=== PATIENT | male | born 1960 | race Caucasian/White ===

== ENCOUNTER → 2016-08-09 | Outpatient (CLI) | payer OTHER ==
[~2016-08-09] MED LIST: ACET50TAOT PO; BACITAB3 PO; CIPR500T3 PO; CYAN1000VL IM; FERR325T PO; FLAG500T PO; LOSA25TA8 PO; OMEP20CA3 PO; PENT500C PO; PRED20TAB PO; VITA100066 PO; VITMTA PO
[2016-08-09 17:34] LABS: ALBUMIN 3.2 GM/DL (3.2-5.2); ALBUMIN/GLOBULIN RATIO 0.97 (1.00-1.93); ALKALINE PHOSPHATASE 143 U/L (45-117); ALT/SGPT 40 U/L (12-78); ANION GAP 9 MEQ/L (8-16); AST/SGOT 28 U/L (15-37); BILIRUBIN,TOTAL 0.3 MG/DL (0.2-1.0); BLOOD UREA NITROGEN 17 MG/DL (7-18); CALCIUM LEVEL 8.7 MG/DL (8.5-10.1); CARBON DIOXIDE LEVEL 26 MEQ/L (21-32); CHLORIDE LEVEL 107 MEQ/L (98-107); CREATININE FOR GFR 1.09 MG/DL (0.70-1.30); GLOMERULAR FILTRATION RATE > 60.0 (>56); GLUCOSE, FASTING 113 MG/DL (70-105); POTASSIUM SERUM 4.2 MEQ/L (3.5-5.1); SODIUM LEVEL 142 MEQ/L (136-145); TOTAL PROTEIN 6.5 GM/DL (6.4-8.2)
[2016-08-09 18:09] LABS: MEAN CORPUSCULAR HEMOGLOBIN 28.3 pg (27.0-33.0); MEAN CORPUSCULAR HGB CONC 31.9 g/dl (32.0-36.5); MEAN CORPUSCULAR VOLUME 88.5 fl (80.0-96.0); RED CELL DISTRIBUTION WIDTH 13.4 % (11.5-14.5)
== END ==
LOC: M WUC 11:48
PROVIDERS: ATTEND Internal Medicine Gastroenterology
DX: K50.90 Crohn's disease, unspecified, without complications (principal); K52.9 Noninfective gastroenteritis and colitis, unspecified; D64.9 Anemia, unspecified; K21.9 Gastro-esophageal reflux disease without esophagitis; E55.9 Vitamin D deficiency, unspecified

== ENCOUNTER → 2016-09-09 | Outpatient (CLI) | payer OTHER | LOC: M WUC 13:14 | PROVIDERS: ATTEND Internal Medicine Gastroenterology | DX: R94.5 Abnormal results of liver function studies (principal) ==

== ENCOUNTER → 2016-09-13 | Outpatient (CLI) | payer OTHER ==
--- NOTE | 2016-09-13 09:47 | REP ---
RIGHT UPPER QUADRANT ULTRASOUND: Real-time sonographic evaluation of the right upper quadrant performed and compared to a prior study of 02/24/2015. Gallbladder is moderately distended. No stones are seen. Once again there are several tiny polyps along the inner wall of the gallbladder only a couple of millimeters in diameter similar to the prior exam. There is intrahepatic or extrahepatic biliary dilatation, common bile duct measuring 5 mm in diameter. Liver and pancreas are grossly unremarkable with no gross mass. Pancreas is not optimally seen due to overlying bowel gas. Right kidney demonstrates multiple cysts, the largest measuring 1.2 x 0.7 x 0.8 cm and 1.1 x 0.6 x 0.9 cm. These are in the mid to upper aspect of the right kidney. There is no hydronephrosis. Length is 11.1 cm. No free fluid is seen. IMPRESSION: Distended gallbladder with no wall thickening, stones, but again containing what appear to be several tiny polyps along the inner wall similar to prior study of 02/24/2015. No biliary dilatation or free fluid. Right renal cysts. Signed by Eliseo Jara MD 09/13/2016 08:06 P
== END ==
LOC: M RAD 07:47
PROVIDERS: ATTEND Internal Medicine Gastroenterology
DX: K82.8 Other specified diseases of gallbladder (principal); N28.1 Cyst of kidney, acquired

== ENCOUNTER → 2017-03-26 | Outpatient (CLI) | payer OTHER ==
[~2017-03-26] MED LIST changes: +BACITAB PO; -BACITAB3 PO; +FERR1TAB8 PO; -FERR325T PO
[2017-03-26 19:17] LABS: ALBUMIN 3.1 GM/DL (3.2-5.2); ALBUMIN/GLOBULIN RATIO 0.86 (1.00-1.93); ALKALINE PHOSPHATASE 121 U/L (45-117); ALT/SGPT 24 U/L (12-78); ANION GAP 6 MEQ/L (8-16); AST/SGOT 18 U/L (15-37); BILIRUBIN,TOTAL 0.3 MG/DL (0.2-1.0); BLOOD UREA NITROGEN 21 MG/DL (7-18); CALCIUM LEVEL 8.7 MG/DL (8.5-10.1); CARBON DIOXIDE LEVEL 29 MEQ/L (21-32); CHLORIDE LEVEL 107 MEQ/L (98-107); CREATININE FOR GFR 0.94 MG/DL (0.70-1.30); GLOMERULAR FILTRATION RATE > 60.0 (>56); GLUCOSE, FASTING 88 MG/DL (70-105); POTASSIUM SERUM 4.2 MEQ/L (3.5-5.1); SODIUM LEVEL 142 MEQ/L (136-145); TOTAL PROTEIN 6.7 GM/DL (6.4-8.2)
[2017-03-26 20:42] LABS: BASO % 0.2 % (0.0-1.0); EOS # 0.1 K/mm3 (0.0-0.50); EOS % 1.5 % (0.0-3.0); LARGE UNSTAINED CELL # 0.1 K/mm3 (0.0-0.4); LARGE UNSTAINED CELL % 1.4 % (0.0-4.0); LYMPH # 0.5 K/mm3 (1.5-4.5); LYMPH % 7.3 % (24.0-44.0); MEAN CORPUSCULAR HGB CONC 33.7 g/dl (32.0-36.5); MEAN CORPUSCULAR VOLUME 89.1 fl (80.0-96.0); MONO # 0.4 K/mm3 (0.0-0.8); MONO % 5.5 % (0.0-5.0); NEUTROPHILS # 6.2 K/mm3 (1.8-7.7); NEUTROPHILS % 84.2 % (36.0-66.0); PLATELET COUNT, AUTOMATED 309 k/mm3 (150-450); RED CELL DISTRIBUTION WIDTH 13.6 % (11.5-14.5); WHITE BLOOD COUNT 7.4 K/mm3 (4.0-10.0)
[2017-03-27 10:12] LABS: VITAMIN B12 LEVEL 711 PG/ML (247-911)
== END ==
LOC: M WUC 08:43
PROVIDERS: ATTEND Internal Medicine Gastroenterology
DX: R94.5 Abnormal results of liver function studies (principal); K50.90 Crohn's disease, unspecified, without complications; K52.9 Noninfective gastroenteritis and colitis, unspecified; K55.9 Vascular disorder of intestine, unspecified; D64.9 Anemia, unspecified; K21.9 Gastro-esophageal reflux disease without esophagitis

== ENCOUNTER → 2017-03-26 | Outpatient (CLI) | payer OTHER | LOC: M WUC 08:39 | PROVIDERS: ATTEND Physician Assistant | DX: Z13.220 Encounter for screening for lipoid disorders (principal) ==

== ENCOUNTER → 2017-09-22 | Outpatient (CLI) | payer OTHER ==
[2017-09-22 12:43] LABS: ALBUMIN 3.2 GM/DL (3.2-5.2); ALBUMIN/GLOBULIN RATIO 0.86 (1.00-1.93); ALKALINE PHOSPHATASE 126 U/L (45-117); ALT/SGPT 25 U/L (12-78); ANION GAP 7 MEQ/L (8-16); AST/SGOT 16 U/L (7-37); BILIRUBIN,TOTAL 0.4 MG/DL (0.2-1.0); BLOOD UREA NITROGEN 20 MG/DL (7-18); CALCIUM LEVEL 8.9 MG/DL (8.5-10.1); CARBON DIOXIDE LEVEL 28 MEQ/L (21-32); CHLORIDE LEVEL 106 MEQ/L (98-107); CHOLESTEROL LEVEL 169 MG/DL (<200); CREATININE FOR GFR 1.09 MG/DL (0.70-1.30); GLOMERULAR FILTRATION RATE > 60.0 (>56); GLUCOSE, FASTING 84 MG/DL (70-100); HDL CHOLESTEROL 52 MG/DL (>40); NON-HDL-C 117 MG/DL; POTASSIUM SERUM 4.8 MEQ/L (3.5-5.1); SODIUM LEVEL 141 MEQ/L (136-145); TOTAL PROTEIN 6.9 GM/DL (6.4-8.2); TRIGLYCERIDES LEVEL 120 MG/DL (<150)
== END ==
LOC: M WUC 08:37
DX: E78.00 Pure hypercholesterolemia, unspecified (principal)
CPT/HCPCS: 80053

== ENCOUNTER → 2017-09-22 | Outpatient (CLI) | payer OTHER ==
[2017-09-22 12:21] LABS: HEMATOCRIT 41.7 % (42.0-52.0); HEMOGLOBIN 13.4 g/dl (14.0-18.0); MEAN CORPUSCULAR HGB CONC 32.1 g/dl (32.0-36.5); MEAN CORPUSCULAR VOLUME 87.1 fl (80.0-96.0); PLATELET COUNT, AUTOMATED 334 10^3/uL (150-450); RED BLOOD COUNT 4.79 10^6/uL (4.30-6.10); RED CELL DISTRIBUTION WIDTH 13.6 % (11.5-14.5)
[2017-09-22 12:40] LABS: TOTAL 25(OH) VITAMIN D 24.5 NG/ML (30.0-100.0)
[2017-09-22 12:54] LABS: ALBUMIN 3.1 GM/DL (3.2-5.2); ALBUMIN/GLOBULIN RATIO 0.86 (1.00-1.93); ALKALINE PHOSPHATASE 117 U/L (45-117); ALT/SGPT 25 U/L (12-78); ANION GAP 8 MEQ/L (8-16); AST/SGOT 20 U/L (7-37); BILIRUBIN,TOTAL 0.4 MG/DL (0.2-1.0); BLOOD UREA NITROGEN 20 MG/DL (7-18); C REACTIVE PROTEIN QUANTITATIV 0.66 MG/DL (0.00-0.30); CALCIUM LEVEL 8.9 MG/DL (8.5-10.1); CARBON DIOXIDE LEVEL 27 MEQ/L (21-32); CHLORIDE LEVEL 106 MEQ/L (98-107); CREATININE FOR GFR 1.08 MG/DL (0.70-1.30); FERRITIN 67 NG/ML (26-388); GLOMERULAR FILTRATION RATE > 60.0 (>56); GLUCOSE, FASTING 79 MG/DL (70-100); IRON (FE) 60 UG/DL (65-175); PERCENT SATURATION 18.1 % (19.7-50.0); POTASSIUM SERUM 4.9 MEQ/L (3.5-5.1); SODIUM LEVEL 141 MEQ/L (136-145); TOTAL IRON BINDING CAPACITY 331 UG/DL (250-450); TOTAL PROTEIN 6.7 GM/DL (6.4-8.2)
== END ==
LOC: M WUC 08:40
DX: K50.90 Crohn's disease, unspecified, without complications (principal); D64.9 Anemia, unspecified; K52.9 Noninfective gastroenteritis and colitis, unspecified; M81.0 Age-related osteoporosis without current pathological fracture; K21.9 Gastro-esophageal reflux disease without esophagitis; K62.89 Other specified diseases of anus and rectum; E55.9 Vitamin D deficiency, unspecified
CPT/HCPCS: 83550

== ENCOUNTER → 2018-01-30 | Outpatient (CLI) | payer OTHER ==
[2018-01-30 17:05] LABS: ALBUMIN/GLOBULIN RATIO 0.79 (1.00-1.93); ALKALINE PHOSPHATASE 113 U/L (45-117); ALT/SGPT 23 U/L (12-78); AST/SGOT 16 U/L (7-37); BILIRUBIN,DIRECT < 0.1 MG/DL (0.0-0.2); BILIRUBIN,TOTAL 0.3 MG/DL (0.2-1.0); CHOLESTEROL LEVEL 135 MG/DL (<200); CHOLESTEROL RISK RATIO 2.547 (<5); HDL CHOLESTEROL 53 MG/DL (>40); LDL CHOLESTEROL 39.6 MG/DL (<100); NON-HDL-C 82 MG/DL; TOTAL PROTEIN 6.8 GM/DL (6.4-8.2); TRIGLYCERIDES LEVEL 212 MG/DL (<150)
== END ==
LOC: M WUC 11:59
DX: E78.00 Pure hypercholesterolemia, unspecified (principal)
CPT/HCPCS: 80061

== ENCOUNTER → 2018-01-30 | Outpatient (CLI) | payer OTHER ==
[2018-01-30 16:50] LABS: HEMATOCRIT 38.6 % (42.0-52.0); HEMOGLOBIN 12.3 g/dl (13.5-17.5); MEAN CORPUSCULAR HEMOGLOBIN 28.1 pg (27.0-33.0); MEAN CORPUSCULAR HGB CONC 31.9 g/dl (32.0-36.5); MEAN CORPUSCULAR VOLUME 88.3 fl (80.0-96.0); PLATELET COUNT, AUTOMATED 314 10^3/uL (150-450); RED BLOOD COUNT 4.37 10^6/uL (4.30-6.10); RED CELL DISTRIBUTION WIDTH 12.9 % (11.5-14.5); WHITE BLOOD COUNT 8.5 10^3/uL (4.0-10.0)
[2018-01-30 17:03] LABS: ALBUMIN 3.1 GM/DL (3.2-5.2); ALBUMIN/GLOBULIN RATIO 0.89 (1.00-1.93); ALKALINE PHOSPHATASE 107 U/L (45-117); ALT/SGPT 24 U/L (12-78); ANION GAP 6 MEQ/L (8-16); AST/SGOT 18 U/L (7-37); BILIRUBIN,TOTAL 0.3 MG/DL (0.2-1.0); BLOOD UREA NITROGEN 20 MG/DL (7-18); C REACTIVE PROTEIN QUANTITATIV 0.58 MG/DL (0.00-0.30); CALCIUM LEVEL 8.3 MG/DL (8.5-10.1); CARBON DIOXIDE LEVEL 31 MEQ/L (21-32); CHLORIDE LEVEL 105 MEQ/L (98-107); CREATININE FOR GFR 0.97 MG/DL (0.70-1.30); FERRITIN 70 NG/ML (26-388); GLOMERULAR FILTRATION RATE > 60.0 (>56); GLUCOSE, FASTING 96 MG/DL (70-100); IRON (FE) 45 UG/DL (65-175); PERCENT SATURATION 14.1 % (19.7-50.0); POTASSIUM SERUM 4.1 MEQ/L (3.5-5.1); SODIUM LEVEL 142 MEQ/L (136-145); TOTAL IRON BINDING CAPACITY 320 UG/DL (250-450); TOTAL PROTEIN 6.6 GM/DL (6.4-8.2)
[2018-01-30 17:06] LABS: VITAMIN B12 LEVEL 979 PG/ML (247-911)
[2018-01-30 18:10] LABS: TOTAL 25(OH) VITAMIN D 48.7 NG/ML (30.0-100.0)
== END ==
LOC: M WUC 11:55
DX: K50.90 Crohn's disease, unspecified, without complications (principal); K52.9 Noninfective gastroenteritis and colitis, unspecified; K62.89 Other specified diseases of anus and rectum; M81.0 Age-related osteoporosis without current pathological fracture; K21.9 Gastro-esophageal reflux disease without esophagitis
CPT/HCPCS: 83550

== ENCOUNTER → 2018-05-03 | Outpatient (CLI) | payer OTHER ==
[2018-05-03 11:24] LABS: HEMATOCRIT 40.1 % (42.0-52.0); HEMOGLOBIN 12.9 g/dl (13.5-17.5); MEAN CORPUSCULAR HEMOGLOBIN 28.9 pg (27.0-33.0); MEAN CORPUSCULAR HGB CONC 32.2 g/dl (32.0-36.5); MEAN CORPUSCULAR VOLUME 89.7 fl (80.0-96.0); PLATELET COUNT, AUTOMATED 317 10^3/uL (150-450); RED BLOOD COUNT 4.47 10^6/uL (4.30-6.10); RED CELL DISTRIBUTION WIDTH 14.1 % (11.5-14.5); WHITE BLOOD COUNT 7.3 10^3/uL (4.0-10.0)
[2018-05-03 11:28] LABS: APPEARANCE, URINE HAZY (CLEAR); BACTERIA, URINE AUTO NEGATIVE (NEGATIVE); BILIRUBIN, URINE AUTO NEGATIVE (NEGATIVE); BLOOD, URINE BLOOD NEGATIVE (NEGATIVE); COLOR, URINE YELLOW (YELLOW); GLUCOSE, URINE (UA) AUTO NEGATIVE (NEGATIVE); KETONE, URINE AUTO TRACE mg/dL (NEGATIVE); LEUKOCYTE ESTERASE, URINE AUTO NEGATIVE (NEGATIVE); MUCUS, URINE SMALL (NEGATIVE); NITRITE, URINE AUTO NEGATIVE (NEGATIVE); PROTEIN, URINE AUTO NEGATIVE (NEGATIVE); RBC, URINE AUTO 0 /HPF (0-3); SPECIFIC GRAVITY URINE AUTO 1.024 (1.002-1.035); SQUAMOUS EPITHELIAL CELL UR AU 0 /HPF (0-6); UROBILINOGEN, URINE AUTO 0.2 mg/dL (0.0-2.0); WBC, URINE AUTO 1 /HPF (0-3)
[2018-05-03 11:44] LABS: ALBUMIN 3.2 GM/DL (3.2-5.2); ALBUMIN/GLOBULIN RATIO 0.91 (1.00-1.93); ALKALINE PHOSPHATASE 114 U/L (45-117); ALT/SGPT 26 U/L (12-78); ANION GAP 8 MEQ/L (8-16); AST/SGOT 22 U/L (7-37); BILIRUBIN,TOTAL 0.4 MG/DL (0.2-1.0); BLOOD UREA NITROGEN 17 MG/DL (7-18); CALCIUM LEVEL 9.1 MG/DL (8.5-10.1); CARBON DIOXIDE LEVEL 29 MEQ/L (21-32); CHLORIDE LEVEL 108 MEQ/L (98-107); CREATININE FOR GFR 0.92 MG/DL (0.70-1.30); GLOMERULAR FILTRATION RATE > 60.0 (>56); GLUCOSE, FASTING 84 MG/DL (70-100); POTASSIUM SERUM 4.3 MEQ/L (3.5-5.1); SODIUM LEVEL 145 MEQ/L (136-145); THYROID STIMULATING HORMONE 0.789 uIU/ML (0.358-3.740); TOTAL PROTEIN 6.7 GM/DL (6.4-8.2)
[2018-05-03 11:46] LABS: TESTOSTERONE 306 NG/DL (241-827)
[2018-05-03 12:00] LABS: ERYTHROCYTE SEDIMENTATION RATE 58 mm/hr (0-20)
== END ==
LOC: M LAB 09:22
DX: N39.0 Urinary tract infection, site not specified (principal); N40.1 Benign prostatic hyperplasia with lower urinary tract symptoms
CPT/HCPCS: 84403

== ENCOUNTER → 2018-05-21 | Outpatient (CLI) | payer OTHER | LOC: M RAD 13:25 | DX: J34.2 Deviated nasal septum (principal); Q22.1 Congenital pulmonary valve stenosis; J34.89 Other specified disorders of nose and nasal sinuses; J32.0 Chronic maxillary sinusitis | CPT/HCPCS: 70486 ==

== ENCOUNTER 2018-06-11 20:54 | Inpatient (IN) | payer OTHER ==
[2018-06-11 21:28] LABS: BASO # 0.1 10^3/uL (0.0-0.2); BASO % 0.3 % (0.0-1.0); EOS # 0.1 10^3/uL (0.0-0.50); EOS % 0.8 % (0.0-3.0); HEMATOCRIT 42.2 % (42.0-52.0); HEMOGLOBIN 13.7 g/dl (13.5-17.5); IMMATURE GRANULOCYTE % 0.3 % (0-3.0); LYMPH # 0.6 10^3/uL (1.5-4.5); LYMPH % 3.1 % (24.0-44.0); MEAN CORPUSCULAR HEMOGLOBIN 29.1 pg (27.0-33.0); MEAN CORPUSCULAR HGB CONC 32.5 g/dl (32.0-36.5); MEAN CORPUSCULAR VOLUME 89.6 fl (80.0-96.0); MONO # 1.5 10^3/uL (0.0-0.8); MONO % 8.4 % (0.0-5.0); NEUTROPHILS # 15.6 10^3/uL (1.8-7.7); NEUTROPHILS % 87.1 % (36.0-66.0); PLATELET COUNT, AUTOMATED 321 10^3/uL (150-450); RED BLOOD COUNT 4.71 10^6/uL (4.30-6.10); RED CELL DISTRIBUTION WIDTH 13.6 % (11.5-14.5); WHITE BLOOD COUNT 17.9 10^3/uL (4.0-10.0)
[2018-06-11 21:44] LABS: PARTIAL THROMBOPLASTIN TIME 28.1 SECONDS (25.4-37.6)
[2018-06-11 21:45] LABS: ALBUMIN 3.4 GM/DL (3.2-5.2); ALBUMIN/GLOBULIN RATIO 0.89 (1.00-1.93); ALKALINE PHOSPHATASE 132 U/L (45-117); ALT/SGPT 25 U/L (12-78); ANION GAP 9 MEQ/L (8-16); AST/SGOT 20 U/L (7-37); BILIRUBIN,DIRECT 0.2 MG/DL (0.0-0.2); BILIRUBIN,TOTAL 0.6 MG/DL (0.2-1.0); BLOOD UREA NITROGEN 21 MG/DL (7-18); CALCIUM LEVEL 9.1 MG/DL (8.5-10.1); CARBON DIOXIDE LEVEL 28 MEQ/L (21-32); CHLORIDE LEVEL 104 MEQ/L (98-107); CK-MB VALUE MASS < 1.0 NG/ML (<3.6); CPK CREATINE PHOSPHOKINASE 69 U/L (39-308); CREATININE FOR GFR 0.99 MG/DL (0.70-1.30); GLOMERULAR FILTRATION RATE > 60.0 (>56); GLUCOSE, FASTING 119 MG/DL (70-100); LIPASE 160 U/L (73-393); MB/CK RELATIVE INDEX 1.45 (< OR =4); POTASSIUM SERUM 3.7 MEQ/L (3.5-5.1); SODIUM LEVEL 141 MEQ/L (136-145); TOTAL PROTEIN 7.2 GM/DL (6.4-8.2); TROPONIN I < 0.02 NG/ML (< 0.10)
[2018-06-11 21:54] LABS: INR 0.93; PROTHROMBIN TIME 12.6 SECONDS (12.1-14.4)
[2018-06-11] MEDS: NS 1,000 ML IV (21:57)
[2018-06-11] MEDS: ONDANSETRON 4MG/2ML VIAL (J2405) IV (21:57)
[2018-06-11] MEDS: MORPHINE 2 MG/ML 1ML SYRINGE (J2270) IV (21:57)
[2018-06-11] MEDS: GASTROGRAFIN SOLUTION 30ML PO ×2 (22:15→22:21)
[2018-06-11] MEDS ORDERED: ISOVUE-370 76% 100ML VIAL (Q9967) As Ordered (23:16)
[2018-06-12] MEDS: PROMETHAZINE INJ 25 MG/ML VIAL (J2550) IV ×2 (00:11→04:00)
[2018-06-12] MEDS: NS 1,000 ML IV (01:16)
[2018-06-12] MEDS ORDERED: ONDANSETRON 4MG/2ML VIAL (J2405) IV (02:00)
[2018-06-12] MEDS ORDERED: ACETAMINOPHEN TAB 650MG DOSE (2X325MG) PO (02:00)
[2018-06-12] MEDS ORDERED: PERCOCET 5MG/325MG TAB PO ×2 (02:00)
[2018-06-12] MEDS ORDERED: LIDOCAINE 2% JELLY 30 ML As Ordered (02:08)
[2018-06-12] MEDS: LR 1,000 ML IV ×3 (03:35→17:01)
[2018-06-12] MEDS: KETOROLAC 30 MG/ML VIAL (J1885) IV (03:59)
[2018-06-12] MEDS: ENOXAPARIN 40 MG/0.4 ML SYRINGE (J1650) SC (08:33)
[2018-06-12] MEDS: PANTOPRAZOLE 40MG INJ (PROTONIX) (C9113) IV (08:33)
[2018-06-12] MEDS: MORPHINE 4 MG/ML 1ML VIAL/SYRINGE (J2270) IV (09:15)
[2018-06-12] MEDS: CEPACOL LOZENGE PO ×2 (12:03→17:00)
[2018-06-12] MEDS: CHLORASEPTIC SPRAY MT (20:07)
[2018-06-13] MEDS: LR 1,000 ML IV ×2 (01:53→10:18)
[2018-06-13 06:41] LABS: BASO % 0.5 % (0.0-1.0); EOS # 0.1 10^3/uL (0.0-0.50); EOS % 1.5 % (0.0-3.0); HEMATOCRIT 35.1 % (42.0-52.0); IMMATURE GRANULOCYTE % 0.3 % (0-3.0); LYMPH # 0.5 10^3/uL (1.5-4.5); MEAN CORPUSCULAR HEMOGLOBIN 28.9 pg (27.0-33.0); MEAN CORPUSCULAR HGB CONC 31.6 g/dl (32.0-36.5); MEAN CORPUSCULAR VOLUME 91.4 fl (80.0-96.0); MONO # 0.8 10^3/uL (0.0-0.8); MONO % 12.7 % (0.0-5.0); NEUTROPHILS # 4.5 10^3/uL (1.8-7.7); PLATELET COUNT, AUTOMATED 236 10^3/uL (150-450); RED BLOOD COUNT 3.84 10^6/uL (4.30-6.10); RED CELL DISTRIBUTION WIDTH 13.7 % (11.5-14.5); WHITE BLOOD COUNT 5.9 10^3/uL (4.0-10.0)
[2018-06-13 06:53] LABS: HEMOGLOBIN 11.1 g/dl (13.5-17.5)
[2018-06-13 06:58] LABS: ANION GAP 10 MEQ/L (8-16); BLOOD UREA NITROGEN 18 MG/DL (7-18); C REACTIVE PROTEIN QUANTITATIV 6.55 MG/DL (0.00-0.30); CALCIUM LEVEL 7.7 MG/DL (8.5-10.1); CARBON DIOXIDE LEVEL 24 MEQ/L (21-32); CHLORIDE LEVEL 108 MEQ/L (98-107); CREATININE FOR GFR 0.86 MG/DL (0.70-1.30); GLOMERULAR FILTRATION RATE > 60.0 (>56); GLUCOSE, FASTING 67 MG/DL (70-100); POTASSIUM SERUM 3.5 MEQ/L (3.5-5.1); SODIUM LEVEL 142 MEQ/L (136-145)
[2018-06-13] MEDS: PANTOPRAZOLE 40MG INJ (PROTONIX) (C9113) IV (08:34)
[2018-06-13] MEDS: ENOXAPARIN 40 MG/0.4 ML SYRINGE (J1650) SC (09:36)
[2018-06-13] MEDS: CEPACOL LOZENGE PO (10:18)
[2018-06-13] MEDS: BUDESONIDE EC 3 MG CAP (ENTOCORT EC) PO (15:46)
[2018-06-14 06:19] LABS: BASO % 0.4 % (0.0-1.0); EOS % 0.9 % (0.0-3.0); HEMATOCRIT 32.9 % (42.0-52.0); HEMOGLOBIN 10.9 g/dl (13.5-17.5); IMMATURE GRANULOCYTE % 0.4 % (0-3.0); LYMPH # 0.3 10^3/uL (1.5-4.5); LYMPH % 7.5 % (24.0-44.0); MEAN CORPUSCULAR HEMOGLOBIN 28.8 pg (27.0-33.0); MEAN CORPUSCULAR HGB CONC 33.1 g/dl (32.0-36.5); MONO # 0.6 10^3/uL (0.0-0.8); MONO % 12.1 % (0.0-5.0); NEUTROPHILS # 3.6 10^3/uL (1.8-7.7); NEUTROPHILS % 78.7 % (36.0-66.0); PLATELET COUNT, AUTOMATED 248 10^3/uL (150-450); RED BLOOD COUNT 3.78 10^6/uL (4.30-6.10); RED CELL DISTRIBUTION WIDTH 13.3 % (11.5-14.5); WHITE BLOOD COUNT 4.5 10^3/uL (4.0-10.0)
[2018-06-14 06:41] LABS: ANION GAP 6 MEQ/L (8-16); BLOOD UREA NITROGEN 10 MG/DL (7-18); CALCIUM LEVEL 7.9 MG/DL (8.5-10.1); CARBON DIOXIDE LEVEL 30 MEQ/L (21-32); CHLORIDE LEVEL 107 MEQ/L (98-107); CREATININE FOR GFR 0.76 MG/DL (0.70-1.30); GLOMERULAR FILTRATION RATE > 60.0 (>56); GLUCOSE, FASTING 88 MG/DL (70-100); POTASSIUM SERUM 3.7 MEQ/L (3.5-5.1); SODIUM LEVEL 143 MEQ/L (136-145)
[2018-06-14] MEDS: MOM 30ML SUSPENSION UDC PO (09:58)
[2018-06-14] MEDS: PANTOPRAZOLE 40MG INJ (PROTONIX) (C9113) IV (09:58)
[2018-06-14] MEDS: BUDESONIDE EC 3 MG CAP (ENTOCORT EC) PO ×2 (09:58→19:51)
[2018-06-14] MEDS: ENOXAPARIN 40 MG/0.4 ML SYRINGE (J1650) SC (09:59)
[2018-06-15 06:34] LABS: BASO % 0.3 % (0.0-1.0); EOS % 0.3 % (0.0-3.0); HEMATOCRIT 33.6 % (42.0-52.0); HEMOGLOBIN 11.1 g/dl (13.5-17.5); IMMATURE GRANULOCYTE % 0.5 % (0-3.0); LYMPH # 0.3 10^3/uL (1.5-4.5); LYMPH % 7.8 % (24.0-44.0); MEAN CORPUSCULAR HEMOGLOBIN 29.4 pg (27.0-33.0); MEAN CORPUSCULAR VOLUME 89.1 fl (80.0-96.0); MONO # 0.5 10^3/uL (0.0-0.8); MONO % 13.9 % (0.0-5.0); NEUTROPHILS # 2.9 10^3/uL (1.8-7.7); NEUTROPHILS % 77.2 % (36.0-66.0); PLATELET COUNT, AUTOMATED 217 10^3/uL (150-450); RED BLOOD COUNT 3.77 10^6/uL (4.30-6.10); RED CELL DISTRIBUTION WIDTH 13.2 % (11.5-14.5); WHITE BLOOD COUNT 3.7 10^3/uL (4.0-10.0)
[2018-06-15 06:53] LABS: POSITIVE DIFF POS FLAG
[2018-06-15 07:02] LABS: ANION GAP 5 MEQ/L (8-16); BLOOD UREA NITROGEN 10 MG/DL (7-18); CALCIUM LEVEL 8.2 MG/DL (8.5-10.1); CARBON DIOXIDE LEVEL 31 MEQ/L (21-32); CHLORIDE LEVEL 105 MEQ/L (98-107); CREATININE FOR GFR 0.86 MG/DL (0.70-1.30); GLOMERULAR FILTRATION RATE > 60.0 (>56); GLUCOSE, FASTING 101 MG/DL (70-100); POTASSIUM SERUM 3.7 MEQ/L (3.5-5.1); SODIUM LEVEL 141 MEQ/L (136-145)
[2018-06-15] MEDS: PANTOPRAZOLE 40MG INJ (PROTONIX) (C9113) IV (10:02)
[2018-06-15] MEDS: BUDESONIDE EC 3 MG CAP (ENTOCORT EC) PO (10:03)
[2018-06-15] MEDS: ENOXAPARIN 40 MG/0.4 ML SYRINGE (J1650) SC (10:03)
== END 2018-06-15 12:05 | disposition home or self-care (01) | DRG 245 ==
LOC: M ED INP 06-12 01:53 → M ED 20:54 → M MS5PR 06-12 02:44
DX: K50.912 Crohn's disease, unspecified, with intestinal obstruction (principal); K56.609 Unspecified intestinal obstruction, unspecified as to partial versus complete obstruction; Z79.899 Other long term (current) drug therapy; Z88.2 Allergy status to sulfonamides

== ENCOUNTER → 2018-06-15 | Outpatient (CLI) | payer OTHER | LOC: M PLARAD 14:52 | DX: R51 Headache (principal) | CPT/HCPCS: 70551 ==

== ENCOUNTER → 2018-08-03 | Outpatient (REF) | payer OTHER ==
[~2018-08-03] MED LIST changes: +ACET500T15 PO; -ACET50TAOT PO; +ATOR1TAB19 PO; +BUDE3CAP PO; +LOSA25TA14 PO; -LOSA25TA8 PO
== END ==
LOC: M LAB REF 13:56
PROVIDERS: ATTEND Internal Medicine Gastroenterology
DX: R19.7 Diarrhea, unspecified (principal)

== ENCOUNTER → 2018-09-02 | Outpatient (CLI) | payer OTHER ==
--- NOTE | 2018-09-02 10:57 | REP ---
PA and lateral chest: Comparison is 10/16/2015. On the lateral view there is a lower lobe infiltrate, not visible on the PA view. Lung blood otherwise clear. Cardiac size is normal. The ramona, mediastinum, skeletal structures are unremarkable. Impression: Lower lobe infiltrate on the lateral view, not visible on the PA view. Electronically Signed by Eliseo Edwards MD 09/02/2018 10:44 A
== END ==
LOC: M LRY 10:07
PROVIDERS: ATTEND Nurse Practitioner Family
DX: R06.02 Shortness of breath (principal)

== ENCOUNTER → 2018-09-25 | Outpatient (CLI) | payer OTHER ==
[2018-09-25 19:15] LABS: HEMATOCRIT 39.6 % (42.0-52.0); HEMOGLOBIN 12.6 g/dl (13.5-17.5); MEAN CORPUSCULAR HEMOGLOBIN 27.9 pg (27.0-33.0); MEAN CORPUSCULAR HGB CONC 31.8 g/dl (32.0-36.5); MEAN CORPUSCULAR VOLUME 87.6 fl (80.0-96.0); PLATELET COUNT, AUTOMATED 327 10^3/uL (150-450); RED BLOOD COUNT 4.52 10^6/uL (4.30-6.10); WHITE BLOOD COUNT 12.7 10^3/uL (4.0-10.0)
[2018-09-25 19:39] LABS: ALBUMIN 3.1 GM/DL (3.2-5.2); ALT/SGPT 24 U/L (12-78); BILIRUBIN,TOTAL 0.3 MG/DL (0.2-1.0); BLOOD UREA NITROGEN 26 MG/DL (7-18); CALCIUM LEVEL 8.5 MG/DL (8.5-10.1); CARBON DIOXIDE LEVEL 27 MEQ/L (21-32); CHLORIDE LEVEL 105 MEQ/L (98-107); GLOMERULAR FILTRATION RATE > 60.0 (>56); GLUCOSE, FASTING 109 MG/DL (70-100); POTASSIUM SERUM 4.7 MEQ/L (3.5-5.1); SODIUM LEVEL 138 MEQ/L (136-145); TOTAL PROTEIN 6.3 GM/DL (6.4-8.2)
== END ==
LOC: M LAB 17:37
PROVIDERS: ATTEND Internal Medicine Gastroenterology
DX: K50.90 Crohn's disease, unspecified, without complications (principal); R10.31 Right lower quadrant pain; M81.0 Age-related osteoporosis without current pathological fracture; K21.9 Gastro-esophageal reflux disease without esophagitis

== ENCOUNTER → 2018-11-13 | Outpatient (CLI) | payer OTHER ==
[2018-11-13 08:45] LABS: ALBUMIN 3.3 GM/DL (3.2-5.2); ALT/SGPT 44 U/L (12-78); BILIRUBIN,TOTAL 0.6 MG/DL (0.2-1.0); BLOOD UREA NITROGEN 15 MG/DL (7-18); CALCIUM LEVEL 8.7 MG/DL (8.5-10.1); CARBON DIOXIDE LEVEL 29 MEQ/L (21-32); CHLORIDE LEVEL 108 MEQ/L (98-107); CHOLESTEROL LEVEL 196 MG/DL (<200); CHOLESTEROL RISK RATIO 3.698 (<5); CREATININE FOR GFR 0.98 MG/DL (0.70-1.30); GLOMERULAR FILTRATION RATE > 60.0 (>56); GLUCOSE, FASTING 83 MG/DL (70-100); HDL CHOLESTEROL 53 MG/DL (>40); LDL CHOLESTEROL 117 MG/DL (<100); NON-HDL-C 143 MG/DL; POTASSIUM SERUM 3.8 MEQ/L (3.5-5.1); SODIUM LEVEL 140 MEQ/L (136-145); TOTAL PROTEIN 6.7 GM/DL (6.4-8.2); TRIGLYCERIDES LEVEL 131 MG/DL (<150)
== END ==
LOC: M LAB 07:45
PROVIDERS: ATTEND Physician Assistant
DX: I42.8 Other cardiomyopathies (principal); E78.00 Pure hypercholesterolemia, unspecified

== ENCOUNTER 2019-01-06 22:54 | Inpatient (IN) | payer OTHER ==
[~2019-01-06] VITALS: Ht 177.8 cm; Wt 73.9 kg
[2019-01-07] MEDS ORDERED: NS 1,000 ML IV ONE
[2019-01-07 00:22] LABS: BASO % 0.1 % (0.0-1.0); EOS % 0.1 % (0.0-3.0); HEMATOCRIT 37.6 % (42.0-52.0); HEMOGLOBIN 12.7 g/dl (13.5-17.5); LYMPH # 0.4 10^3/uL (1.5-4.5); LYMPH % 3.3 % (24.0-44.0); MEAN CORPUSCULAR HEMOGLOBIN 30.5 pg (27.0-33.0); MEAN CORPUSCULAR HGB CONC 33.8 g/dl (32.0-36.5); MEAN CORPUSCULAR VOLUME 90.2 fl (80.0-96.0); MONO # 0.2 10^3/uL (0.0-0.8); MONO % 1.5 % (0.0-5.0); NEUTROPHILS # 12.3 10^3/uL (1.8-7.7); NEUTROPHILS % 94.6 % (36.0-66.0); PLATELET COUNT, AUTOMATED 223 10^3/uL (150-450); RED BLOOD COUNT 4.17 10^6/uL (4.30-6.10)
[2019-01-07] MEDS: GASTROGRAFIN SOLUTION 30ML PO SCH ×2 (00:35→01:25)
[2019-01-07 01:03] LABS: ALBUMIN 3.6 GM/DL (3.2-5.2); ALT/SGPT 27 U/L (12-78); BILIRUBIN,DIRECT 0.2 MG/DL (0.0-0.2); BILIRUBIN,TOTAL 0.6 MG/DL (0.2-1.0); BLOOD UREA NITROGEN 22 MG/DL (7-18); CALCIUM LEVEL 8.5 MG/DL (8.5-10.1); CARBON DIOXIDE LEVEL 27 MEQ/L (21-32); CHLORIDE LEVEL 108 MEQ/L (98-107); CREATININE FOR GFR 1.04 MG/DL (0.70-1.30); GLOMERULAR FILTRATION RATE > 60.0 (>56); GLUCOSE, FASTING 114 MG/DL (70-100); LIPASE 110 U/L (73-393); SODIUM LEVEL 142 MEQ/L (136-145); TOTAL PROTEIN 6.8 GM/DL (6.4-8.2)
[2019-01-07] MEDS ORDERED: ISOVUE-370 76% 100ML VIAL (Q9967) As Ordered ONE (01:07)
--- NOTE | 2019-01-07 02:49 | REPVR ---
EXAM: CT Abdomen and Pelvis With Contrast EXAM DATE/TIME: 01/07/2019 1:44 AM CLINICAL HISTORY: 58 years old, male; Condition or disease; Hernia and intestinal condition; Complications not specified; Hernia not specified; Crohn's disease; Additional info: Chrohn's/hernia tender TECHNIQUE: Imaging protocol: Axial computed tomography images of the abdomen and pelvis with intravenous contrast. Coronal and sagittal reformatted images were created and reviewed. Radiation optimization: All CT scans at this facility use at least one of these dose optimization techniques: automated exposure control; mA and/or kV adjustment per patient size (includes targeted exams where dose is matched to clinical indication); or iterative reconstruction. Contrast material: ISOVUE 370; Contrast volume: 100 ml; Contrast route: IV; COMPARISON: CT ABD/PEL W/IV ORAL CONTRAS 06/11/2018 11:18 PM FINDINGS: Lungs: Bibasilar atelectasis. Mediastinum: Contrast in the esophagus likely representing reflux. Liver: Diffuse fatty infiltration of liver. Gallbladder and bile ducts: Normal. No calcified stones. No ductal dilation. Pancreas: Small cystic structure in the tail of the pancreas measuring 7.6 mm likely cysts. Spleen: Normal. No splenomegaly. Adrenals: Normal. No mass. Kidneys and ureters: Multiple bilateral small renal cysts measuring up to 12 mm. Cortical scarring in the right kidney. Stomach and bowel: Postsurgical rectosigmoid postsurgical changes. Postsurgical changes at the junction of the terminal ileum with the cecum. Severe narrowing, enhancement, and surrounding inflammatory changes of the terminal ileum. Dilated fluid filled multiple small bowel loops likely secondary to obstruction at the thickened terminal ileum. Appendix: No evidence of appendicitis. Intraperitoneal space: Normal. No free air. No significant fluid collection. Vasculature: Atherosclerosis. Lymph nodes: Normal. No enlarged lymph nodes. Bladder: Unremarkable as visualized. Reproductive: Unremarkable as visualized. Bones/joints: Demineralization bilateral mild sacroiliitis. the bones with degenerative changes. Soft tissues: Small fat containing anterior abdominal wall hernia. IMPRESSION: High-grade small bowel obstruction occurring at the distal ileum secondary to thickened inflamed terminal ileum consistent with patient's history of Crohn's disease. Electronically signed by: Yumiko Ponce On 01/07/2019 02:48:36 AM
[2019-01-07] MEDS ORDERED: HUMI20KI SC (03:51)
--- NOTE | 2019-01-07 03:57 | HPEPDOC ---
[facility] Medical History & Physical Date of Admission Jan 07, 2019 Date of Service: Jan 07, 2019 History and Physical CHIEF COMPLAINT: Stomachache HISTORY OF PRESENT ILLNESS: Patient is a 58-year-old man with well-documented history of Crohn's disease with numerous complications. He is had numerous resections interventions for strictures fistulas. He's previously had ileostomy with reversal. He was in his usual state of health and doing quite well until yesterday while at a cookout he had some crispy chicken he stated it was tasting so good any new he shouldn't is been eating it it was dry and hard but it tasted so that he couldn't stop. Patient states that the next day he began having difficulties with pain in the stomach he has not passed gas from below today he tells me that he has had some belching associated with mild nausea but no actual vomiting. The patient did call Afia Funk his autocad designer office in [place] and they've suggested he take prednisone 60 mg to see if this would be enough to celeste his symptoms however symptoms do continue to worsen prompting him to present to the emergency room at this time. Subjectively he tells me that his symptoms actually improved at this time and is doing better. He describes his pain in the colon acute nature. Otherwise patient denies weight loss, hair loss, headache, visual changes, chest pain, shortness of breath, cough, muscle aches, worsening arthritis, change in mood. The patient provides a very good history and is very much into him with his body and his disease PAST MEDICAL HISTORY: 1. Crohn's disease. 2. Dyslipidemia. 3. Hypertension 4. Gastroesophageal reflux disease 5. Vitamin D deficiency 6. Vitamin B12 deficiency. HOME MEDICATIONS: Please see below. ALLERGIES: Please see below PAST SURGICAL HISTORY: 1. Ileostomy with reversal. 2. Cardiac catheterization. 3. Umbilical hernia repair 4. Numerous procedures related to strictures and fistulas related to Crohn's. 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 ETOH: Denies, Illicit drug use: Denies, Tattoos done unprofessionally: Denies, CODE STATUS: Full code FAMILY HISTORY:Reviewed and noncontributory REVIEW OF SYSTEMS: 10 systems reviewed and negative other than HPI PHYSICAL EXAMINATION: VITAL SIGNS: Temperature 98.4, pulse 74, respiratory rate 18, blood pressure 127 or 84, pulse oximetry 98 % on room air. GENERAL: Pleasant man laying in a stretcher accompanied by his sitting up in bed awake alert oriented speaking in complete sentences no acute distress appears quite comfortable HEENT: Moist mucous membranes no elevation and CVP CARDIOVASCULAR: S1 S2 regular no additional heart sounds appreciated. RESPIRATORY: Clear to auscultation bilaterally. ABDOMINAL: Bowel sounds diminished, abdomen soft and tender to deep palpation over his old surgical scars in his right lower quadrant and infraumbilical region EXTREMITIES: No clubbing cyanosis or edema NEUROLOGICAL: Spontaneously moves all 4 extremities cranial 2 through 12 grossly intact no gross focal deficits appreciated PSYCHOLOGICAL: Appropriate LABORATORY DATA: See below. MICROBIOLOGY: Please see below. IMAGING: CT scan abdomen and pelvis:High-grade small bowel obstruction occurring at the distal ileum secondary to thickened inflamed terminal ileum consistent with patient's history of Crohn's disease. ASSESSMENT & PLAN: This is a 58-year-old man with high-grade small bowel obstruction. PROBLEMS: 1. High-grade small bowel obstruction: Given the onset of his symptoms related to eating some dry hard food M optimistically hoping this is transient obstruction in the region of the area of stenosis related to a previous anastomotic site. For the time being I will treat him with IV Solu-Medrol and hopes that with some decrease of inflammation he can tolerate a clear liquid diet in the morning and to be advanced as tolerated. He is currently not vomiting hemodynamically stable and comfortable. I did discuss placement of an NG tube with him he previously had a bad experience with scratch to his throat and causes significant pain, at this time I will forego placement of an NG tube and monitor closely. Should he fail to improve with these measures are not tolerated diet advancement of his diet could consider NG tube placement and then. Should he fail beyond the NG tube could consider upper endoscopy ev aluation for potential stricture plus or minus intervention with dilation, this is one possible gradual escalation of interventions for this particular patient. I did discuss this plan with general surgery on-call who will see the patient in consultation. Patient started last 6 weeks ago and has been taking Pentasa quite regularly of late. I will hold his Lasix for the time being 2.Dyslipidemia: I will hold atorvastatin and allow for some bowel rest at this time consider resuming when he is able to tolerate diet better 3.Vitamin B12 deficiency: Injections every 2 weeks 4. Vitamin D deficiency: Hold for the short-term as outlined above 5. Hypertension: Hold losartan for now and monitor resume as able 6. Gastroesophageal reflux disease: We'll provide IV PPI DVT PROPHYLAXIS: Lovenox DISPOSITION: admitted to [facility] inpatient status Vital Signs Vital Signs Date Time Temp Pulse Resp B/P (MAP) Pulse Ox O2 Delivery O2 Flow Rate FiO2 01/07/19 02:43 69 16 110/62 (78) 98 01/06/19 23:47 98.4 Room Air Laboratory Data Labs 24H Laboratory Tests 2 01/07/19 00:14: Immature Granulocyte % (Auto) 0.4, White Blood Count 13.0H, Red Blood Count 4.17L, Hemoglobin 12.7L, Hematocrit 37.6L, Mean Corpuscular Volume 90.2, Mean Corpuscular Hemoglobin 30.5, Mean Corpuscular Hemoglobin Concent 33.8, Red Cell Distribution Width 12.7, Platelet Count 223, Neutrophils (%) (Auto) 94.6H, Lymphocytes (%) (Auto) 3.3L, Monocytes (%) (Auto) 1.5, Eosinophils (%) (Auto) 0.1, Basophils (%) (Auto) 0.1, Neutrophils # (Auto) 12.3H, Lymphocytes # (Auto) 0.4L, Monocytes # (Auto) 0.2, Eosinophils # (Auto) 0.0, Basophils # (Auto) 0.0, Nucleated Red Blood Cells % (auto) 0.0, Anion Gap 7L, Glomerular Filtration Rate > 60.0, Lactic Acid Level 0.7, Calcium Level 8.5, Aspartate Amino Transf (AST/SGOT) 26, Alanine Aminotransferase (ALT/SGPT) 27, Alkaline Phosphatase 101, Total Bilirubin 0.6, Direct Bilirubin 0.2, Total Protein 6.8, Albumin 3.6, Albumin/Globulin Ratio 1.13, Lipase 110 CBC/BMP Laboratory Tests 01/07/19 00:14 Red Blood Count 4.17 L, Mean Corpuscular Volume 90.2, Mean Corpuscular Hemoglobin 30.5, Mean Corpuscular Hemoglobin Concent 33.8, Red Cell Distribution Width 12.7, Neutrophils (%) (Auto) 94.6 H, Lymphocytes (%) (Auto) 3.3 L, Monocytes (%) (Auto) 1.5, Eosinophils (%) (Auto) 0.1, Basophils (%) (Auto) 0.1, Neutrophils # (Auto) 12.3 H, Lymphocytes # (Auto) 0.4 L, Monocytes # (Auto) 0.2, Eosinophils # (Auto) 0.0, Basophils # (Auto) 0.0 Home Medications Scheduled Atorvastatin Calcium (Atorvastatin Calcium) 10 Mg Tab, 10 MG PO QHS Budesonide (Budesonide EC) 3 Mg Cap, 6 MG PO BID Cholecalciferol (Vitamin D3) (Vitamin D3) 1,000 Unit Tab, 2,000 UNIT PO DAILY Cyanocobalamin (Cyanocobalamin Injection) 1,000 Mcg/1 Ml Inj, 1,000 MCG IM Q2WK EVERY OTHER MONDAY L.acidoph/L.bulg/B.bif/S.therm (Bacid Caplet) 1 Tab Tab, 1 TAB PO DAILY Losartan Potassium (Losartan Potassium) 25 Mg Tab, 25 MG PO QHS Mesalamine (Pentasa) 500 Mg Cap, 1,000 MG PO QID Multivitamins (Thera M Plus Tablet) 1 Tab Tab, 1 TAB PO DAILY Omeprazole (Omeprazole) 20 Mg Cap, 20 MG PO Q3RD Scheduled PRN Acetaminophen (Acetaminophen) 500 Mg Tab, 1,000 MG PO Q6H PRN for PAIN Allergies Coded Allergies: Sulfa (Sulfonamide Antibiotics) (Verified Allergy, Intermediate, 01/06/19) cramping A-FIB/CHADSVASC A-FIB History Current/History of A-Fib/PAF?: No SABRINA MONROE MD Jan 07, 2019 03:57
[2019-01-07 05:30] VITALS: BP 109/65
[2019-01-07] MEDS: methylPREDNISolone INJ 125 MG/2 ML VIAL (J2930) IV SCH ×4 (06:17→22:37)
[2019-01-07] MEDS: PANTOPRAZOLE 40MG INJ (PROTONIX) (C9113) IV SCH (06:18)
[2019-01-07] MEDS: NS 1,000 ML IV SCH ×2 (08:52→20:32)
[2019-01-07] MEDS: ENOXAPARIN 40 MG/0.4 ML SYRINGE (J1650) SC SCH (08:52)
[2019-01-07] MEDS: MESALAMINE 250 MG CR CAP PO SCH ×4 (08:52→20:32)
--- NOTE | 2019-01-07 10:00 | CR.PDOC ---
General Surgery Consultation Date of Consultation 01/07/19 History and Physical CONSULT REPORT FOR: Samantha Chopra MD (hospitalist service) REASON FOR CONSULTATION: Abdominal pain, distention, vomiting HISTORY OF PRESENT ILLNESS: 58-year-old male with known history of Crohn's disease, had a previous ileostomy and subsequent reversal Patient's known to me from his previous admission back in June 2018 for possible bowel obstruction. This is managed nonoperatively with improvement of his symptoms he does have a long history of Crohn's disease at his prior multiple surgeries. Last one was in 2006. Details of his history of already been previously documented on H&P stone by Dr. Chavez as well as mine on prior admissions for bowel obstruction. In between the time that I saw him in June, he is followed up with Dr. Pat Funk who is her director internal control. In June he was not yet on Humira. He tells me he has been placed on Humira for about 6 weeks now to try to limit the times that he has been placed on prednisone. He'll has some active disease as he is complaining of intermittent bouts of diarrhea, abdominal crampy pain, gas pain prior to passing flatus or bowel movements. He denies fevers or chills or any significant weight loss in between this time. He also has been sent for consultation with the surgery group in [place] to consider possible surgery for his strictures from his Crohn's disease which she saw them roughly 3 weeks ago. This episode started Monday into Monday. He will the UT just ate too much into fast of the growth chicken Monday evening which promoted the abdominal pain and discomfort on Monday. At the time that he was in the emergency room he started feeling better though he still has waves of cramps area in his nausea has improved. He did not vomit through his stay in the emergency room and overnight. At the time that I saw him he feels comfortable and is no longer having any crampy abdominal pain and discomfort and definitely no nausea. He does report that he has not noted if he has passed any flatus or not since being in the hospital. No bowel movements reported. I'm being asked to assist with his management with regards to his presentation of possible bowel obstruction secondary to his Crohn's disease. PAST MEDICAL HISTORY: 1. Crohn's disease. PAST SURGICAL HISTORY: INCLUDES: 1. Bowel resection for Crohn's disease fistula and stricture in 2006 and subsequent reexploration 3 days after for bowel obstruction with formation of ileostomy. Ileostomy was reversed 3 months after 2. Right inguinal hernia repair 2 3. Umbilical hernia repair 4. Cardiac catheterization. ALLERGIES: Please see below. HOME MEDICATIONS: Please see below. REVIEW OF SYSTEMS: GENERAL: Denies chills, reports weight gain, fever. He was in his usual state of health prior to start of symptoms Monday morning. HEENT: Denies blurred vision and double vision. Denies ear symptoms. Denies hoarseness. NECK: Denies any neck pain CARDIOVASCULAR: Denies chest pain and palpitations. MUSCULOSKELETAL: Denies arthralgias, back pain and thrombophlebitis. SKIN: Denies rash. NEUROLOGIC: Denies headache, stroke and transient ischemic attack. ENDOCRINE: Denies thyroid disease. HEMATOLOGY/ONCOLOGY: Denies bleeding or clotting disorder. PULMONARY: Denies chronic cough, dyspnea and wheezing. GASTROINTESTINAL: See HPI. GENITOURINARY: Denies dysuria, frequency, hematuria and nocturia. ENDOCRINE: Denies polydipsia, polyphagia, polyuria, heat or cold intolerance. INFECTIOUS: Denies any recent upper respiratory tract infection, UTI, need for use of antibiotics. NUTRITION: Reports good appetite. PHYSICAL EXAMINATION: VITALS SIGNS: Please see below. GENERAL APPEARANCE:. The time that I saw the patient, he looks very comfortable. SKIN: Warm and moist. HEENT: Normocephalic, atraumatic. [place] palpebral conjunctiva, anicteric sclerae. Lips and mucosa appear moist. NECK: Supple, no thyromegaly. No obvious jugular venous distention. LUNGS: Clear to auscultation bilaterally. No wheezing appreciated. HEART: No chest wall abnormalities. Regular rate and rhythm with no murmurs appreciated. ABDOMEN: Abdomen is relatively flat, soft, minimally distended. Nontender on palpation. EXTREMITIES: Extremities have no deformities. No edema identified ANCILLARIES: . LABORATORY DATA: Please see below. IMAGING STUDIES: CT abdomen and pelvis High-grade small bowel obstruction occurring at the distal ileum secondary to thickened inflamed terminal ileum consistent with patient's history of Crohn's disease. IMPRESSION AND PLAN: Crohn's disease Small bowel obstruction Patient is known to me from prior admission. Issues at this point includes possible acute exacerbation of his Crohn's disease. He has been started on Humira and last dose was 2 weeks ago. To coming to the hospital he has spoken to the on-call director internal control who suggested starting back on prednisone. He has been placed on Solu-Medrol here. There is some suggestion of active inflammation on the CT though its appearance seems to be almost the same on the CT in June. He does have an area of stricture which may be fixed prior to the terminal ileum. The appearance of a very distended intestine on CT does not correlate with my exam at this point were his abdomen is relatively flat and only minimally distended. So he might have some component of chronic partial obstruction given the stricture in the terminal ileum from the Crohn's disease. I suspect he is resolving her getting better from the acute obstruction probably from eating the chicken the night prior as he is no longer reporting any crampy abdominal discomfort. I told him to ambulate today and the he continues to feel better we could probably restart him on his diet. He scares me provided by Dr. Funk who started him on Humira. I think it is reasonable to continue him on Humira for a time to see which part of the chronic obstruction is from inflammation which is fixed. He is already been seen 3 weeks ago by the community Gen[facility] surgeons in [place] for possible elective surgery with regards to his terminal ileum stricture and he was asking me about my opinion on that. I told him that if the stricture is fixed and fibrotic that the Humira will not be able to affect flat and given the length of his symptoms he probably does need surgery to alleviate the stricture at the area whether this needs resection are or some sort of small bowel enteroplasty to open up the stricture. I suggest continue to follow with the community Gen. surgeons. I think with this admission he is already resolving his acute obstruction and if he continues to improve suggest gradually advancing his diet. Vital Signs Vital Signs Date Time Temp Pulse Resp B/P (MAP) Pulse Ox O2 Delivery O2 Flow Rate FiO2 01/07/19 05:30 97.4 63 17 109/65 (80) 99 01/06/19 23:47 Room Air I&Os I&O- Last 24 Hours up to 6 AM 01/07/19 06:00 Intake Total 0 ml Output Total 600 ml Balance -600 ml Laboratory Data Labs 24H Laboratory Tests 2 01/07/19 00:14: Immature Granulocyte % (Auto) 0.4, White Blood Count 13.0H, Red Blood Count 4.17L, Hemoglobin 12.7L, Hematocrit 37.6L, Mean Corpuscular Volume 90.2, Mean Corpuscular Hemoglobin 30.5, Mean Corpuscular Hemoglobin Concent 33.8, Red Cell Distribution Width 12.7, Platelet Count 223, Neutrophils (%) (Auto) 94.6H, Lymphocytes (%) (Auto) 3.3L, Monocytes (%) (Auto) 1.5, Eosinophils (%) (Auto) 0.1, Basophils (%) (Auto) 0.1, Neutrophils # (Auto) 12.3H, Lymphocytes # (Auto) 0.4L, Monocytes # (Auto) 0.2, Eosinophils # (Auto) 0.0, Basophils # (Auto) 0.0, Nucleated Red Blood Cells % (auto) 0.0, Anion Gap 7L, Glomerular Filtration Rate > 60.0, Lactic Acid Level 0.7, Calcium Level 8.5, Aspartate Amino Transf (AST/SGOT) 26, Alanine Aminotransferase (ALT/SGPT) 27, Alkaline Phosphatase 101, Total Bilirubin 0.6, Direct Bilirubin 0.2, Total Protein 6.8, Albumin 3.6, Albumin/Globulin Ratio 1.13, Lipase 110 CBC/BMP Laboratory Tests 01/07/19 00:14 Red Blood Count 4.17 L, Mean Corpuscular Volume 90.2, Mean Corpuscular Hemoglobin 30.5, Mean Corpuscular Hemoglobin Concent 33.8, Red Cell Distribution Width 12.7, Neutrophils (%) (Auto) 94.6 H, Lymphocytes (%) (Auto) 3.3 L, Monocytes (%) (Auto) 1.5, Eosinophils (%) (Auto) 0.1, Basophils (%) (Auto) 0.1, Neutrophils # (Auto) 12.3 H, Lymphocytes # (Auto) 0.4 L, Monocytes # (Auto) 0.2, Eosinophils # (Auto) 0.0, Basophils # (Auto) 0.0 Home Medications Scheduled Adalimumab (Humira) 20 Mg/0.4 Ml Syringekit, 40 MG SC Q2WK, (Reported) Atorvastatin Calcium (Atorvastatin Calcium) 10 Mg Tab, 10 MG PO QHS, (Reported) Cholecalciferol (Vitamin D3) (Vitamin D3) 1,000 Unit Tab, 2,000 UNIT PO DAILY, (Reported) Cyanocobalamin (Cyanocobalamin Injection) 1,000 Mcg/1 Ml Inj, 1,000 MCG IM Q2WK, (Reported) EVERY OTHER MONDAY L.acidoph/L.bulg/B.bif/S.therm (Bacid Caplet) 1 Tab Tab, 1 TAB PO DAILY, (Reported) Losartan Potassium (Losartan Potassium) 25 Mg Tab, 25 MG PO QHS, (Reported) Mesalamine (Pentasa) 500 Mg Cap, 1,000 MG PO QID, (Reported) Multivitamins (Thera M Plus Tablet) 1 Tab Tab, 1 TAB PO DAILY, (Reported) Omeprazole (Omeprazole) 20 Mg Cap, 20 MG PO Q3RD, (Reported) Scheduled PRN Acetaminophen (Acetaminophen) 500 Mg Tab, 1,000 MG PO Q6H PRN for PAIN, (Reported) Allergies Coded Allergies: Sulfa (Sulfonamide Antibiotics) (Verified Allergy, Intermediate, 01/06/19) ARPIT Castle MD Jan 07, 2019 07:58
[2019-01-07 14:00] VITALS: BP 101/68
[2019-01-07 22:00] VITALS: BP 100/64
[2019-01-08] MEDS: PANTOPRAZOLE 40MG INJ (PROTONIX) (C9113) IV SCH (05:34)
[2019-01-08] MEDS: methylPREDNISolone INJ 125 MG/2 ML VIAL (J2930) IV SCH (05:34)
[2019-01-08 05:46] VITALS: BP 106/57
[2019-01-08 06:04] LABS: HEMATOCRIT 33.9 % (42.0-52.0); HEMOGLOBIN 11.2 g/dl (13.5-17.5); MEAN CORPUSCULAR HEMOGLOBIN 30.5 pg (27.0-33.0); MEAN CORPUSCULAR VOLUME 92.4 fl (80.0-96.0); PLATELET COUNT, AUTOMATED 226 10^3/uL (150-450); RED BLOOD COUNT 3.67 10^6/uL (4.30-6.10); WHITE BLOOD COUNT 8.3 10^3/uL (4.0-10.0)
[2019-01-08 06:28] LABS: BLOOD UREA NITROGEN 25 MG/DL (7-18); CALCIUM LEVEL 8.1 MG/DL (8.5-10.1); CARBON DIOXIDE LEVEL 23 MEQ/L (21-32); CHLORIDE LEVEL 112 MEQ/L (98-107); CREATININE FOR GFR 1.19 MG/DL (0.70-1.30); GLOMERULAR FILTRATION RATE > 60.0 (>56); GLUCOSE, FASTING 123 MG/DL (70-100); POTASSIUM SERUM 3.6 MEQ/L (3.5-5.1); SODIUM LEVEL 143 MEQ/L (136-145)
--- NOTE | 2019-01-08 07:18 | IPNPDOC ---
Subjective Date Seen The patient was seen on 01/08/19. Subjective Chief Complaint/HPI No nausea or vomiting, Had a solid bwel movement last night, now passing gas, His abdominal cramps have improved just has a little discomfort in the lower abdomen. Objective Physical Examination General Exam: Positive: Alert, Cooperative, No Acute Distress Eye Exam: Positive: PERRLA, Conjunctiva & lids normal, EOMI; Negative: Sclera icteric ENT Exam: Positive: Atraumatic, Mucous membr. moist/pink, Pharynx Normal Neck Exam: Positive: Supple; Negative: JVD, thyromegaly Chest Exam: Positive: Clear to auscultation, Normal air movement Heart Exam: Positive: Rate Normal, Regular Rhythm, Normal S1, Normal S2; Negative: Murmurs, Rubs Abdomen Exam: Positive: BS Hyperactive, Soft, Tenderness (lower abdomen to the right) Extremity Exam: Positive: Normal pulses; Negative: Clubbing, Cyanosis, Edema Skin Exam: Positive: Nl turgor and temperature; Negative: Rash, Breakdown Assessment /Plan Assessment 58-year-old male with known history of Crohn's disease, had a previous ileostomy and subsequent reversal. He does have a long history of Crohn's disease and prior multiple surgeries. Last one was in 2006 when he underwent a bowel resection which apparently included his terminal ileum. He was found to have several fistulas by the patient's account and had a more involved procedure than was apparently anticipated. He required a re-exploration several days later for bowel obstruction and had a nearly 2-week hospital stay. Since then, he has done fairly well with occational exacerbations. He did have 2 episodes of SBO one in 2015 and one in Jun 2018 when he was admitted here. He follows for his Crohn's disease with Dr. Pat Funk in [place]. He has been placed on Humira for about 6 weeks now to try to limit the times that he has been placed on prednisone. he came in this tme again with acute onset abdominal pain, nausea and vomiting after eating cripy chicker at a cook out. He knew he should not eat it as it was very dry but it tasted so good that he could not stop. He was again found to have high grade SBO. SBO High grade. near the ileocolic anastomotic site. Improving It is similar in CT scan appearance in jun 2018. The surgeon feels that part of the obstruction is fixed due to stricture and fibrosis and part inflammatory from Crohn's exacerbation. He will need definitive surgery for the fixed obstruction at some pont. He has already been referred by his credit checker to the surgeons in [place] whom he saw about 3 weeks ago At present treated conservatively with IVf, pain control, antiemetics, NPO. Pateint already feeling better advance diet to clear liquids. Crohn's disease flare continue steroids continue Humira. pentasa Hypertension BP now low normal hold all antihypertensives Peyronie,s disease no complaints at present GERD continue PPI Dyslipidemia. hold statin for now Vitamin D deficiency hold supplements temporarily Vitamin B12 deficiency. gets injections every 2 weeks Plan/VTE VTE Prophylaxis Ordered?: Yes VS, I&O, 24H, Fishbone Vital Signs/I&O Vital Signs Date Time Temp Pulse Resp B/P (MAP) Pulse Ox O2 Delivery O2 Flow Rate FiO2 01/07/19 22:00 97.8 82 14 100/64 (76) 95 01/06/19 23:47 Room Air I&O- Last 24 Hours up to 6 AM 01/08/19 06:00 Intake Total 0 ml Output Total 1020 ml Balance -1020 ml CRISTINE DICK MD Jan 08, 2019 02:22
[2019-01-08] MEDS: MESALAMINE 250 MG CR CAP PO SCH ×4 (08:46→21:51)
[2019-01-08] MEDS: ENOXAPARIN 40 MG/0.4 ML SYRINGE (J1650) SC SCH (08:47)
[2019-01-08] MEDS: NS 1,000 ML IV SCH (08:48)
[2019-01-08] MEDS: methylPREDNISolone INJ 40 MG/1 ML VIAL (J2920) IV SCH ×3 (10:04→22:29)
[2019-01-08 14:01] VITALS: BP 102/56
[2019-01-08 21:56] VITALS: BP 125/71
[2019-01-09] MEDS: PANTOPRAZOLE 40MG INJ (PROTONIX) (C9113) IV SCH (05:27)
[2019-01-09] MEDS: methylPREDNISolone INJ 40 MG/1 ML VIAL (J2920) IV SCH (05:27)
[2019-01-09 06:05] VITALS: BP 117/68
[2019-01-09 06:35] LABS: HEMATOCRIT 32.4 % (42.0-52.0); HEMOGLOBIN 10.7 g/dl (13.5-17.5); MEAN CORPUSCULAR HEMOGLOBIN 30.6 pg (27.0-33.0); MEAN CORPUSCULAR VOLUME 92.6 fl (80.0-96.0); PLATELET COUNT, AUTOMATED 198 10^3/uL (150-450); WHITE BLOOD COUNT 10.6 10^3/uL (4.0-10.0)
[2019-01-09 06:50] LABS: BLOOD UREA NITROGEN 27 MG/DL (7-18); CALCIUM LEVEL 7.7 MG/DL (8.5-10.1); CARBON DIOXIDE LEVEL 24 MEQ/L (21-32); CHLORIDE LEVEL 113 MEQ/L (98-107); CREATININE FOR GFR 0.94 MG/DL (0.70-1.30); GLOMERULAR FILTRATION RATE > 60.0 (>56); GLUCOSE, FASTING 135 MG/DL (70-100); SODIUM LEVEL 144 MEQ/L (136-145)
[2019-01-09] MEDS ORDERED: PRED10TA2 PO (07:12)
[2019-01-09] MEDS: ENOXAPARIN 40 MG/0.4 ML SYRINGE (J1650) SC SCH (09:00)
[2019-01-09] MEDS: MESALAMINE 250 MG CR CAP PO SCH (09:12)
--- NOTE | 2019-01-09 23:31 | DS.PDOC ---
Discharge Summary General Date of Admission Jan 07, 2019 at 03:07 Date of Discharge 01/09/19 Discharge Summary PROCEDURES PERFORMED DURING STAY: [None]. DISCHARGE DIAGNOSES: Small bowel obstruction Crohn's disease flare SECONDARY DIAGNOSIS: Hypertension, GERD, Dyslipidemia, Vit D def, Vit B12 deficiency COMPLICATIONS/CHIEF COMPLAINT: Intestinal Obstruction. HISTORY OF PRESENT ILLNESS: See History and physical HOSPITAL COURSE: 58-year-old male with known history of Crohn's disease, had a previous ileostomy and subsequent reversal. He does have a long history of Crohn's disease and prior multiple surgeries. Last one was in 2006 when he underwent a bowel resection which apparently included his terminal ileum. He was found to have several fistulas by the patient's account and had a more involved procedure than was apparently anticipated. He required a re- exploration several days later for bowel obstruction and had a nearly 2-week hospital stay. Since then, he has done fairly well with occational exacerbations. He did have 2 episodes of SBO one in 2015 and one in Jun 2018 when he was admitted here. He follows for his Crohn's disease with Dr. Pat Funk in [place]. He has been placed on Humira for about 6 weeks now to try to limit the times that he has been placed on prednisone. he came in this tme again with acute onset abdominal pain, nausea and vomiting after eating cripy c hicker at a cook out. He knew he should not eat it as it was very dry but it tasted so good that he could not stop. He was again found to have high grade SBO. SBO High grade. near the ileocolic anastomotic site. Improving It is similar in CT scan appearance in jun 2018. The surgeon feels that part of the obstruction is fixed due to stricture and fibrosis and part inflammatory from Crohn's exacerbation. He will need definitive surgery for the fixed obstruction at some pont. He has already been referred by his psychological assistant to the surgeons in [place] whom he saw about 3 weeks ago treated conservatively with IVf, pain control, antiemetics, Bowel rest Now tolerating soft diet Crohn's disease flare continue steroids continue Humira. pentasa Hypertension BP now low normal hold all antihypertensives Peyronie's disease no complaints at present GERD continue PPI Dyslipidemia. hold statin for now Vitamin D deficiency hold supplements temporarily Vitamin B12 deficiency. gets injections every 2 weeks DISCHARGE MEDICATIONS: Please see below. ALLERGIES: Please see below. PHYSICAL EXAMINATION ON DISCHARGE: VITAL SIGNS: Please see below. General Exam: Positive: Alert, Cooperative, No Acute Distress Eye Exam: Positive: PERRLA, Conjunctiva & lids normal, EOMI; Negative: Sclera icteric ENT Exam: Positive: Atraumatic, Mucous membr. moist/pink, Pharynx Normal Neck Exam: Positive: Supple; Negative: JVD, thyromegaly Chest Exam: Positive: Clear to auscultation, Normal air movement Heart Exam: Positive: Rate Normal, Regular Rhythm, Normal S1, Normal S2; Negative: Murmurs, Rubs Abdomen Exam: Positive: BS Hyperactive, Soft, Nontender Extremity Exam: Positive: Normal pulses; Negative: Clubbing, Cyanosis, Edema Skin Exam: Positive: Nl turgor and temperature; Negative: Rash, Breakdown LABORATORY DATA: Please see below. ACTIVITY: [As tolerated]. DIET: Soft Low roughage diet DISPOSITION: Home, Self-Care. DISCHARGE INSTRUCTIONS: Follow up with PMD in 1 week Follow up with own [employer] DISCHARGE CONDITION: [Stable]. TIME SPENT ON DISCHARGE: 40 minutes. Vital Signs/I&Os Vital Signs Date Time Temp Pulse Resp B/P (MAP) Pulse Ox O2 Delivery O2 Flow Rate FiO2 01/09/19 06:05 97.6 50 14 117/68 (84) 96 01/06/19 23:47 Room Air I&O- Last 24 Hours up to 6 AM 01/09/19 06:00 Intake Total 4165 ml Output Total 1500 ml Balance 2665 ml Laboratory Data Labs 24H Laboratory Tests 2 01/09/19 05:51: Nucleated Red Blood Cells % (auto) 0.0, Anion Gap 7L, Glomerular Filtration Rate > 60.0, Blood Urea Nitrogen 27H, Creatinine 0.94, Sodium Level 144, Potassium Level 4.0, Chloride Level 113H, Carbon Dioxide Level 24, Calcium Level 7.7L CBC/BMP Laboratory Tests 01/09/19 05:51 Red Blood Count 3.50 L, Mean Corpuscular Volume 92.6, Mean Corpuscular Hemoglobin 30.6, Mean Corpuscular Hemoglobin Concent 33.0, Red Cell Distribution Width 13.2, Calcium Level 7.7 L Discharge Medications Scheduled Adalimumab (Humira) 20 Mg/0.4 Ml Syringekit, 40 MG SC Q2WK, (Reported) Atorvastatin Calcium (Atorvastatin Calcium) 10 Mg Tab, 10 MG PO QHS, (Reported) Cholecalciferol (Vitamin D3) (Vitamin D3) 1,000 Unit Tab, 2,000 UNIT PO DAILY, (Reported) Cyanocobalamin (Cyanocobalamin Injection) 1,000 Mcg/1 Ml Inj, 1,000 MCG IM Q2WK, (Reported) EVERY OTHER MONDAY L.acidoph/L.bulg/B.bif/S.therm (Bacid Caplet) 1 Tab Tab, 1 TAB PO DAILY, (Reported) Mesalamine (Pentasa) 500 Mg Cap, 1,000 MG PO QID, (Reported) Multivitamins (Thera M Plus Tablet) 1 Tab Tab, 1 TAB PO DAILY, (Reported) Omeprazole (Omeprazole) 20 Mg Cap, 20 MG PO Q3RD, (Reported) Prednisone (Prednisone) 10 Mg Tablet, 10 MG PO TAPER Take 4 tabs daily x 3 days, then 3 tabs daily x 3 days, then 2 tabs daily x 3 days, then 1 tab daily x 3 days and stop Scheduled PRN Acetaminophen (Acetaminophen) 500 Mg Tab, 1,000 MG PO Q6H PRN for PAIN, (Reported) Allergies Coded Allergies: Sulfa (Sulfonamide Antibiotics) (Verified Allergy, Intermediate, 01/06/19) CRISTINE Howard MD Jan 09, 2019 23:31
[2019-01-10] MEDS ORDERED: predniSONE 20 MG TAB PO SCH (09:00)
== END 2019-01-09 12:45 | disposition home or self-care (01) | DRG 245 ==
LOC: M ED 22:54 → M ED INP 01-07 03:07 → M MS5PR 01-07 05:21
PROVIDERS: ADMIT Internal Medicine; ATTEND Internal Medicine Nephrology
DX: K50.912 Crohn's disease, unspecified, with intestinal obstruction (principal); I10 Essential (primary) hypertension; K21.9 Gastro-esophageal reflux disease without esophagitis; E78.5 Hyperlipidemia, unspecified; E55.9 Vitamin D deficiency, unspecified; E53.8 Deficiency of other specified B group vitamins; Z79.899 Other long term (current) drug therapy; Z88.2 Allergy status to sulfonamides; Z95.2 Presence of prosthetic heart valve

== ENCOUNTER → 2019-01-16 | Outpatient (CLI) | payer OTHER ==
[~2019-01-16] MED LIST changes: +HUMI20KI SC; -OMEP20CA3 PO; +OMEP20CA4 PO; +PRED10TA2 PO
[2019-01-16 12:37] LABS: HEMATOCRIT 37.4 % (42.0-52.0); HEMOGLOBIN 12.2 g/dl (13.5-17.5); MEAN CORPUSCULAR HEMOGLOBIN 29.6 pg (27.0-33.0); MEAN CORPUSCULAR HGB CONC 32.6 g/dl (32.0-36.5); MEAN CORPUSCULAR VOLUME 90.8 fl (80.0-96.0); PLATELET COUNT, AUTOMATED 236 10^3/uL (150-450); RED BLOOD COUNT 4.12 10^6/uL (4.30-6.10); WHITE BLOOD COUNT 10.9 10^3/uL (4.0-10.0)
[2019-01-16 13:11] LABS: ALBUMIN 3.3 GM/DL (3.2-5.2); ALT/SGPT 24 U/L (12-78); BILIRUBIN,TOTAL 0.4 MG/DL (0.2-1.0); BLOOD UREA NITROGEN 19 MG/DL (7-18); CALCIUM LEVEL 8.4 MG/DL (8.5-10.1); CARBON DIOXIDE LEVEL 31 MEQ/L (21-32); CHLORIDE LEVEL 105 MEQ/L (98-107); CREATININE FOR GFR 1.01 MG/DL (0.70-1.30); FERRITIN 62 NG/ML (26-388); GLOMERULAR FILTRATION RATE > 60.0 (>56); GLUCOSE, FASTING 97 MG/DL (70-100); IRON (FE) 86 UG/DL (65-175); PERCENT SATURATION 26.1 % (19.7-50.0); POTASSIUM SERUM 3.7 MEQ/L (3.5-5.1); SODIUM LEVEL 141 MEQ/L (136-145); TOTAL IRON BINDING CAPACITY 329 UG/DL (250-450); TOTAL PROTEIN 6.4 GM/DL (6.4-8.2)
[2019-01-16 13:19] LABS: TESTOSTERONE 281 NG/DL (241-827)
== END ==
LOC: M LAB 12:00
PROVIDERS: ATTEND Internal Medicine Gastroenterology
DX: K50.90 Crohn's disease, unspecified, without complications (principal); K52.9 Noninfective gastroenteritis and colitis, unspecified; R94.5 Abnormal results of liver function studies; L29.9 Pruritus, unspecified

== ENCOUNTER → 2019-02-07 | Outpatient (CLI) | payer OTHER | LOC: M LAB 07:15 | PROVIDERS: ATTEND Family Medicine | DX: E29.1 Testicular hypofunction (principal) ==

== ENCOUNTER → 2019-04-16 | Outpatient (CLI) | payer OTHER ==
[~2019-04-16] MED LIST changes: +FLON1SPR; +HUMI40IN2 INJ; +HUMI40KI SC; +HUMI40KI2 INJ
--- NOTE | 2019-04-17 09:10 | RADONC ---
RADIATION ONCOLOGY CONSULTATION NOTE DATE: 04/16/2019 CHART NUMBER: [id number] DIAGNOSIS: Basal cell carcinoma. ECOG PERFORMANCE STATUS: 0 CONSULTATION NOTE: Mr. Paula is a very pleasant 58-year-old white male with the diagnosis of what appears to be a small basal cell carcinoma involving his right rastafarian who is presenting to us today status post shave excisional biopsy for consideration of postoperative radiation therapy for positive margins for local control. HISTORY OF PRESENT ILLNESS The patient was in his usual state of health and has had small skin malignancy is in the past. More recently, he has noted to have a suspicious lesion over his right rastafarian and on 03/27/2019 the patient underwent a shave excisional biopsy. Pathology revealed a basal cell carcinoma with surface ulceration and crust formation. The lesion involved the inked margins of resection. The patient is now presenting to us for consideration of postoperative radiation therapy. ALLERGIES: The patient is allergic to SULFA drugs. PAST MEDICAL HISTORY: The patient's past medical history is positive for hypertension, bronchitis, arthritis, vitamin B12 deficiency, vitamin D deficiency, gastroesophageal reflux disease (GERD) as well as an umbilical hernia repair in 2005. He also has Crohn's disease and had a bowel resection in 2006. SOCIAL HISTORY: The patient has smoked one to two packs of cigarettes per day for approximately 20 years. He quit in 1997. He stopped drinking alcohol in 1997 as well. FAMILY HISTORY: The patient's family history is negative for skin cancers or other malignancies. REVIEW OF SYSTEMS: The patient's review of systems is positive for some dry skin and occasional headaches, but is otherwise noncontributory. He denies nausea, vomiting, fevers, chills, night sweats, diplopia, headaches, anxiety or depression, anorexia, weight loss, visual disturbances, chest pain, urinary or bowel difficulties, bone pain or neurological problems. PHYSICAL EXAMINATION: The patient is a well-developed, well-nourished white male in no acute distress. HEENT: Exam is normocephalic, atraumatic. Extraocular movements are intact. There is a small healing area present over his right rastafarian consistent with his above history. There are no other suspicious lesions present over the patient's face, shoulders or neck. There is no palpable preauricular, cervical, supraclavicular, infraclavicular or axillary lymphadenopathy present. Lungs are clear to auscultation and percussion. His heart has a regular rate and rhythm. ASSESSMENT: Mr. Paula is presenting to us today for consideration of postoperative external beam radiation therapy for a basal cell carcinoma involving his right rastafarian. Clearly the patient is a candidate for this treatment and I have so informed him. I have discussed with the patient in detail the potential benefits as well as possible acute and chronic sequelae of external beam radiation therapy. We discussed the logistics of treatment planning, simulation and subsequent fractionated daily radiation treatments. I am scheduling the patient for the next available electron setup site. We are planning on treating this patient for a dose of 5000 cGy delivered in 20 fractions of 250 cGy each utilizing a 6 MV electron beam prescribed to the 90% isodose line as well as using 1/2 cm of tissue equivalent bolus. Radiation will follow. Thank you for allowing us to participate in the care of this very pleasant gentleman. If I could be of any further assistance, or provide you any information, please feel free to contact me at anytime. cc: Pilar Castellon MD
== END ==
LOC: M ONCR 08:56
PROVIDERS: ATTEND Radiology Radiation Oncology
DX: C44.319 Basal cell carcinoma of skin of other parts of face (principal)

== ENCOUNTER 2019-04-25 10:36 | Inpatient (IN) | payer OTHER ==
[~2019-04-25] VITALS: Ht 177.8 cm; Wt 70.5 kg
[~2019-04-25 10:36] MED LIST changes: -FLON1SPR; -HUMI40KI SC
[2019-04-25] MEDS ORDERED: ONDANSETRON 4MG/2ML VIAL (J2405) IV ONE (11:30)
[2019-04-25] MEDS ORDERED: KETOROLAC 30 MG/ML VIAL (J1885) IV ONE (11:30)
[2019-04-25] MEDS ORDERED: NS 1,000 ML IV ONE (11:30)
[2019-04-25 11:37] LABS: BASO % 0.2 % (0.0-1.0); EOS % 0.2 % (0.0-3.0); LYMPH # 0.7 10^3/uL (1.5-5.0); LYMPH % 5.2 % (24.0-44.0); MEAN CORPUSCULAR HEMOGLOBIN 30.5 pg (27.0-33.0); MEAN CORPUSCULAR HGB CONC 33.3 g/dl (32.0-36.5); MEAN CORPUSCULAR VOLUME 91.5 fl (80.0-96.0); MONO # 0.8 10^3/uL (0.0-0.8); MONO % 6.4 % (0.0-5.0); NEUTROPHILS # 11.3 10^3/uL (1.5-8.5); NEUTROPHILS % 87.7 % (36.0-66.0); PLATELET COUNT, AUTOMATED 248 10^3/uL (150-450); RED BLOOD COUNT 4.92 10^6/uL (4.30-6.10); WHITE BLOOD COUNT 12.9 10^3/uL (4.0-10.0)
[2019-04-25 11:44] LABS: ALT/SGPT 31 U/L (12-78); BILIRUBIN,DIRECT 0.1 MG/DL (0.0-0.2); BILIRUBIN,TOTAL 0.8 MG/DL (0.2-1.0); BLOOD UREA NITROGEN 19 MG/DL (7-18); CALCIUM LEVEL 9.9 MG/DL (8.5-10.1); CARBON DIOXIDE LEVEL 32 MEQ/L (21-32); CHLORIDE LEVEL 105 MEQ/L (98-107); CREATININE FOR GFR 1.02 MG/DL (0.70-1.30); GLOMERULAR FILTRATION RATE > 60.0 (>56); GLUCOSE, FASTING 103 MG/DL (70-100); LIPASE 113 U/L (73-393); POTASSIUM SERUM 4.5 MEQ/L (3.5-5.1); SODIUM LEVEL 139 MEQ/L (136-145)
[2019-04-25] MEDS: GASTROGRAFIN SOLUTION 30ML PO SCH ×2 (11:58→12:25)
[2019-04-25] MEDS ORDERED: ISOVUE-370 76% 100ML VIAL (Q9967) As Ordered ONE (13:11)
--- NOTE | 2019-04-25 13:57 | REP ---
CT ABDOMEN PELVIS WITH IV AND ORAL CONTRAST: HISTORY: Lower abdominal pain. History of small bowel obstruction. Comparison study: January 07, 2019. CT CONTRAST DOSE: 100 mL of intravenous Isovue [address] FINDINGS: Preliminary digital oil scout radiograph demonstrates moderately dilated air and fluid-filled small bowel loops in the central abdomen. The lung bases are clear. The liver and the spleen are normal in size homogeneous in texture. No pancreatic abnormality is seen. No adrenal abnormality is observed. There is a small sliding type hiatal hernia. The gallbladder is mildly distended without CT evidence of stone. There are numerous small cysts affecting the kidneys. No hydronephrosis or mass lesion is seen. Renal appearance is unchanged. No retroperitoneal mass or adenopathy is seen. There is a high-grade small bowel obstruction pattern with moderately dilated loops of small intestine. There is mural thickening and narrowing in the distal ileum at the level of what appears to be the ileal right colic anastomosis from previous resection. There is regional fat hypertrophy and streaking adjacent to this loop of ileum. The findings are consistent with Crohn disease and are quite similar to those seen January 07, 2019. This is the point of transition. The involved narrowed loop measures approximately 4-5 cm in length. There is no evidence of free air or abscess. There is a mild periumbilical ventral hernia transmitting abdominal fat which is unchanged. No other abdominal wall defect is seen. The patient appears to be status post partial colon resection as well with an anastomosis in the rectosigmoid region. Urinary bladder, seminal vesicles, and prostate are unremarkable. IMPRESSION: High-grade distal small bowel obstruction at the distal ileum just proximal to the ileocolonic anastomosis. Findings consistent with Crohn disease. No evidence of free air. Electronically Signed by Scooter Cervantes MD 04/25/2019 06:25 P
[2019-04-25] MEDS ORDERED: KETOROLAC 30 MG/ML VIAL (J1885) IV PRN (15:00)
[2019-04-25] MEDS ORDERED: ONDANSETRON 4MG/2ML VIAL (J2405) IV PRN (15:00)
[2019-04-25] MEDS ORDERED: ACETAMINOPHEN TAB 650MG DOSE (2X325MG) PO PRN (15:00)
[2019-04-25] MEDS ORDERED: MORPHINE 4 MG/ML 1ML VIAL/SYRINGE (J2270) IV PRN (15:00)
[2019-04-25] MEDS ORDERED: PERCOCET 5MG/325MG TAB PO PRN ×2 (15:00)
[2019-04-25] MEDS ORDERED: HUMI40KI SC (15:19)
[2019-04-25] MEDS ORDERED: FLON1SPR (15:19)
[2019-04-25] MEDS: LR 1,000 ML IV SCH (15:25)
--- NOTE | 2019-04-25 16:28 | HPEPDOC ---
General Surgery H&P Date of Admission Apr 25, 2019 Attending Physician: ARPIT HOGAN MD History and Physical CHIEF COMPLAINT: abdominal pain and vomiting HISTORY OF PRESENT ILLNESS: CHIEF COMPLAINT:abdominal cramping HISTORY OF PRESENT ILLNESS:Patient is 57 year old male with known and long standing history of Crohn's Disease. He has had prior bowel resection for strictures and fistula as complications of his Crohn's Disease. He reports prior bowel obstruction. He was admitted briefly in [address] Chavez for small bowel obstruction which resolved on its own without need for intervention. During that time it was suggested that he may have a stricture at his distal small bowel that is causing the obstruction. He has followed up with Dr. Pat Funk (GI) and he reports recent prior colonoscopy (1 or 2 years) for which she did saw that there maybe some swelling or stricturing at the anastomoses s ite and he tells me that he may need surgery for this down the road. He is only on pentasa for his Crohn's Disease. 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 Patient reports he had bouts of diarrhea, loose stools Monday for which he took 2 tablets of loperamide. He started having bouts of cramping Monday which progressed through to Monday. He started noticing his abdomen getting more and more distended over the course of the day of Monday. He reports last bowel movement was Monday. Due to the degree and severity of the abdominal cramping and recognizing this is possibly another bout of obstruction he presented himself to the emergency department. Patient reports normal bowel movement is varied from loose stools to semi-formed stools at least once a day. He has bouts where he has 2 or 3 successive bowel movements in the morning. He denies noticing any blood in his stools. He denies any significant weight loss. As mentioned last colonoscopy was about a couple years ago. ALLERGIES: Please see below. HOME MEDICATIONS: Please see below. PAST MEDICAL HISTORY: 1. Hypertension. 2. Crohn's disease. PAST SURGICAL HISTORY: 1. Bowel resection for fistula and stricture from Crohn's disease in 2006 at [facility] in [place]. 2. Reexploration within the same hospitalization with ileostomy 3. Ileostomy reversal 3 months after. 4. Right inguinal hernia repair 2 5. Umbilical hernia repair 6. Cardiac catheterization PERSONAL/SOCIAL HISTORY: Denies smoking, reports occasional alcohol use denies recreational drug use. 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 HEENT: Denies blurred vision and double vision. Denies ear symptoms. Denies hoarseness. NECK: Denies any neck pain. CARDIOVASCULAR: Denies chest pain and palpitations. He reports that one side, he thinks a left-sided heart is enlarged MUSCULOSKELETAL: Denies arthralgias, back pain and thrombophlebitis. SKIN: Denies rash. NEUROLOGIC: Patient reports sinus-type headaches for a few months now for which she was seeing Dr. Soria He was placed on prednisone for a period of about 4 weeks in February and he tells he was supposed to have an MRI scheduled this Monday for further workup of this. PSYCHIATRIC: Denies anxiety and depression. ENDOCRINE: Denies thyroid disease. HEMATOLOGY/ONCOLOGY: Denies any bleeding or clotting disorder. HEART: Denies any chest pains, palpitations, paroxysmal dyspnea, orthopnea. PULMONARY: Denies chronic cough, dyspnea and wheezing. GASTROINTESTINAL: See HPI GENITOURINARY: Denies dysuria, frequency, hematuria and nocturia. ENDOCRINE: Denies polydipsia, polyphagia, polyuria, heat or cold intolerance. INFECTIOUS: Denies any recent upper respiratory tract infection, UTI, need for use of antibiotics. NUTRITION: Reports good appetite. PHYSICAL EXAMINATION: VITAL SIGNS: Please see below. GENERAL APPEARANCE: Patient seen at bedside, appears comfortable. Awake, alert, oriented. HEENT: Normocephalic, atraumatic. Abanda palpebral conjunctivae. Anicteric scle jt. Lips moist. NG tube in place. He reports a lot of drainage when the tube was placed but not much in the canister that time I saw him. CHEST: No chest wall abnormalities. Normal respiratory motion/effort. NECK: Supple. No thyromegaly. No lymphadenopathies. LUNGS: Lung sounds are clear to auscultation bilaterally. No wheezing appreciated. HEART: No chest wall abnormalities. Heart rate and rhythm are regular with no murmurs. ABDOMEN: [Abdomen is soft, flat, minimally distended, slightly hypoactive bowel sounds. He has several scars from previous surgery including a midline abdominal incision, right ileostomy site incision. No noticeable hernia. He has a right groin incision. Slightly tympanitic to percussion. Nontender on palpation SKIN: Warm, dry. EXTREMITIES: Extremities have no deformities. No edema identified. NEUROLOGICAL: Awake, alert, oriented. No sensory or muscle deficits ANCILLARIES: . LABORATORY DATA: Please see below. MICROBIOLOGY: Please see below. IMAGING: CT scan abdomen and pelvis There may be a tiny hiatal hernia. The distal esophagus and stomach are not sufficiently distended to evaluate wall thickening. Small bowel loops are dilated with fluid and air fluid levels throughout, greatest within the pelvis, up to 6.2 cm in diameter. This is similar in appearance to the prior exam. A focal point of transition is noted approximately 6 cm from the ileocecal valve where there has been an anastomosis. The distal 6 cm of terminal ileum appear ill-defined with irregular wall thickening, lazaro-intestinal spiculated mesenteric inflammation and mucosal enhancement with slight mucosal irregularity. There is complete soft tissue thickening at the ileocolic anastomosis. Differential would include severe distal ileitis with inflammation, resulting in obstruction. Stricture at the anastomosis cannot be excluded. Soft tissue mass/neoplasia would also be a less likely possibility. Consider direct visualization once inflammation subsides. IMPRESSION AND PLAN: Small bowel obstruction may be secondary to stricture, less so probably from an adhesion Crohn's disease Nasogastric tube was placed in the emergency room after he was diagnosed with bowel obstruction. He had initial good amount of drainage from this but since this morning has had only minimal output. He is complaining a lot of pain on his throat from the nasogastric tube. Seeing that he is already decompressed I would like to clamp the nasogastric tube to see how he tolerates this. We will continue to clamp this overnight unless he starts having abdominal distention, c ramping which tells me that obstruction still remains present and significant. Other issues include the long-standing history of Crohn's disease which probably is not adequately treated the same he has refusing to start on the biologic therapy given that he has had complications with cholecystectomy site think he should be on biologic therapy. His next issue is whether that stricture noted on CT in 2016 and on his presentation to the emergency room is fixed for which no treatment to the Crohn's disease would be able to has to say for surgery to resect that portion of the bowel. He is asking whether he should be on steroids. I am not sure if he has any acute exacerbation that would need steroid therapy at this point. I would like to see him to clear him saw him whether he still has a fixed stenosis or bowel obstruction for which I told him that he would need surgery before considering steroid therapy. For now I will just continue him on the Pentasa. Vital Signs Vital Signs Date Time Temp Pulse Resp B/P (MAP) Pulse Ox O2 Delivery O2 Flow Rate FiO2 04/25/19 15:32 98.8 85 20 107/80 (89) 98 Room Air Laboratory Data Labs 24H Laboratory Tests 2 04/25/19 10:43: Immature Granulocyte % (Auto) 0.3, Neutrophils (%) (Auto) 87.7H, Lymphocytes (%) (Auto) 5.2L, Monocytes (%) (Auto) 6.4H, Eosinophils (%) (Auto) 0.2, Basophils (%) (Auto) 0.2, Neutrophils # (Auto) 11.3H, Lymphocytes # (Auto) 0.7L, Monocytes # (Auto) 0.8, Eosinophils # (Auto) 0.0, Basophils # (Auto) 0.0, Nucleated Red Blood Cells % (auto) 0.0, Anion Gap 2L, Glomerular Filtration Rate > 60.0, Lactic Acid Level 1.1, Calcium Level 9.9, Total Bilirubin 0.8, Direct Bilirubin 0.1, Aspartate Amino Transf (AST/SGOT) 22, Alanine Aminotransferase (ALT/SGPT) 31, Alkaline Phosphatase 118H, Total Protein 8.0, Albumin 4.0, Albumin/Globulin Ratio 1.00, Lipase 113 04/25/19 13:28: Urine Color YELLOW, Urine Appearance CLEAR, Urine pH 5.0, Urine Specific [place] 1.029, Urine Protein NEGATIVE, Urine Glucose (UA) NEGATIVE, Urine Ketones TRACEH, Urine Blood NEGATIVE, Urine Nitrite NEGATIVE, Urine Bilirubin NEGATIVE, Urine Urobilinogen 0.2, Urine Leukocyte Esterase NEGATIVE, Urine WBC (Auto) 1, Urine RBC (Auto) 2, Urine Hyaline Casts (Auto) 0, Urine Bacteria (Auto) NEGATIVE, Urine Squamous Epithelial Cells 0, Urine Mucus (Auto) SMALL, Urine Sperm (Auto) CBC/BMP Laboratory Tests 04/25/19 10:43 Home Medications Scheduled Adalimumab (Humira) 40 Mg/0.8 Ml [place]ring[place], 40 MG SC Q2WK, (Reported) EVERY OTHER MONDAY Atorvastatin Calcium (Atorvastatin Calcium) 10 Mg Tab, 10 MG PO QHS, (Reported) Cholecalciferol (Vitamin D3) (Vitamin D3) 1,000 Unit Tab, 2,000 UNIT PO DAILY, (Reported) Cyanocobalamin (Cyanocobalamin Injection) 1,000 Mcg/1 Ml Inj, 1,000 MCG IM Q2WK, (Reported) EVERY OTHER MONDAY L.acidoph/L.bulg/B.bif/S.therm (Bacid Caplet) 1 Tab Tab, 1 TAB PO DAILY, (Reported) Losartan Potassium (Losartan Potassium) 25 Mg Tablet, 25 MG PO QHS, (Reported) Mesalamine (Pentasa) 500 Mg Cap, 1,000 MG PO QID, (Reported) Multivitamins (Thera M Plus Tablet) 1 Tab Tab, 1 TAB PO DAILY, (Reported) Omeprazole (Omeprazole) 20 Mg Cap, 20 MG PO Q2D, (Reported) Scheduled PRN Acetaminophen (Acetaminophen) 500 Mg Tab, 1,000 MG PO Q6H PRN for PAIN, (Reported) Fluticasone Propionate (Flonase Allergy Relief) 9.9 Ml [place].susp, 1 SPRAY NA BID PRN for ALLERGIES, (Reported) Allergies Coded Allergies: Sulfa (Sulfonamide Antibiotics) (Verified Allergy, Intermediate, 01/06/19) ARPIT Castle MD Apr 25, 2019 16:28
[2019-04-25 16:30] VITALS: BP 122/75
--- NOTE | 2019-04-25 18:53 | REP ---
KUB: Two views. History: Followup small bowel obstruction. Comparison study June 13, [address] study earlier this date. Findings: There are air and fluid dilated small bowel loops throughout the mid abdomen consistent with small bowel obstruction similar to the CT study. Contrast enhanced urine is seen in the renal collecting systems bilaterally and in the urinary bladder. No other finding. Electronically Signed by Scooter Cervantes MD 04/26/2019 07:47 A
[2019-04-25 22:00] VITALS: BP 120/70
[2019-04-26] MEDS: LR 1,000 ML IV SCH ×4 (00:59→22:53)
[2019-04-26 06:00] VITALS: BP 120/68
[2019-04-26] MEDS: PANTOPRAZOLE 40MG INJ (PROTONIX) (C9113) IV SCH (08:04)
[2019-04-26] MEDS: ENOXAPARIN 40 MG/0.4 ML SYRINGE (J1650) SC SCH (08:05)
--- NOTE | 2019-04-26 09:26 | IPNPDOC ---
Subjective General Date/Time Seen The patient was seen on 04/26/19 at 09:25. Subject Chief Complaint/History The patient is a 58-year-old male admitted with a reason for visit of Small Bowel Obstruction. Current Medications Current Medications Current Medications Medications (Trade) Dose Ordered Sig/Aidan Route PRN Reason Start Time Stop Time Status Last Admin Dose Admin Acetaminophen (Tylenol Tab) 650 mg Q4HP PRN PO MILD PAIN or TEMP > 101 04/25/19 15:00 Diatrizoate Meglum/ Diatrizoate Sod (Gastrografin) 10 ml Q30M PO 04/25/19 11:55 04/25/19 12:26 DC 04/25/19 12:25 Enoxaparin Sodium (Lovenox) 40 mg DAILY SC 04/26/19 09:00 04/26/19 08:05 Home Med (Med Rec Complete!) ASDIRECTED XX 04/25/19 15:30 04/25/19 15:23 DC Ketorolac Tromethamine (ToRADol) 30 mg Q6HP PRN IV MILD/MODERATE PAIN (PS 1-7) 04/25/19 15:00 04/30/19 14:59 Lactated Ringer's 1,000 ml @ 125 mls/hr Q8H IV 04/25/19 14:49 04/26/19 08:04 Morphine Sulfate (Morphine Sulfate Inj) 4 mg Q2HP PRN IV SEVERE PAIN (PS 8-10) 04/25/19 15:00 Ondansetron HCl (ZOFRAN INJection) 4 mg Q6HP PRN IV NAUSEA OR VOMITING 04/25/19 15:00 Oxycodone/ Acetaminophen (Percocet 5mg/ 325mg Tablet) 1 tab Q4HP PRN PO MODERATE PAIN (PS 5-7) 04/25/19 15:00 Oxycodone/ Acetaminophen (Percocet 5mg/ 325mg Tablet) 2 tab Q6HP PRN PO SEVERE PAIN (PS 8-10) 04/25/19 15:00 Pantoprazole Sodium (Protonix) 40 mg DAILY IV 04/26/19 09:00 04/26/19 08:04 Allergies Coded Allergies: Sulfa (Sulfonamide Antibiotics) (Verified Allergy, Intermediate, 01/06/19) cramping Objective Physical Examination Examination GENERAL APPEARANCE:[Patient seen, laying in bed, awake, alert, and oriented. Comfortable, in no acute distress]. SKIN: [Warm and moist]. HEENT: [Normocephalic, atraumatic. Prosser palpebral conjunctiva, anicteric sclerae. Lips and mucosa appear moist]. NECK: [Supple, no thyromegaly. No obvious jugular venous distention]. LUNGS: [Clear to auscultation bilaterally. No wheezing appreciated]. HEART: [No chest wall abnormalities. Regular rate and rhythm with no murmurs appreciated]. ABDOMEN: Abdomen is , soft, . [No hepatosplenomegaly. No umbilical or groin herniations, nondistended. No noticeable rebound or guarding. No grimacing with palpation. No rebound tenderness. No masses appreciated]. EXTREMITIES: [Extremities have no deformities. No edema identified]. Vital Signs Vital Signs Date Time Temp Pulse Resp B/P (MAP) Pulse Ox O2 Delivery O2 Flow Rate FiO2 04/26/19 06:00 98.2 84 18 120/68 (85) 97 Room Air I&Os I&O- Last 24 Hours up to 6 AM 04/26/19 05:59 Intake Total 2150 ml Output Total 0 ml Balance 2150 ml Laboratory Data Labs 24H Laboratory Tests 2 04/25/19 10:43: Immature Granulocyte % (Auto) 0.3, Neutrophils (%) (Auto) 87.7H, Lymphocytes (%) (Auto) 5.2L, Monocytes (%) (Auto) 6.4H, Eosinophils (%) (Auto) 0.2, Basophils (%) (Auto) 0.2, Neutrophils # (Auto) 11.3H, Lymphocytes # (Auto) 0.7L, Monocytes # (Auto) 0.8, Eosinophils # (Auto) 0.0, Basophils # (Auto) 0.0, Nucleated Red Blood Cells % (auto) 0.0, Anion Gap 2L, Glomerular Filtration Rate > 60.0, Lactic Acid Level 1.1, Calcium Level 9.9, Total Bilirubin 0.8, Direct Bilirubin 0.1, Aspartate Amino Transf (AST/SGOT) 22, Alanine Aminotransferase (ALT/SGPT) 31, Alkaline Phosphatase 118H, Total Protein 8.0, Albumin 4.0, Albumin/Globulin Ratio 1.00, Lipase 113 04/25/19 13:28: Urine Color YELLOW, Urine Appearance CLEAR, Urine pH 5.0, Urine Specific [place] 1.029, Urine Protein NEGATIVE, Urine Glucose (UA) NEGATIVE, Urine Ketones TRACEH, Urine Blood NEGATIVE, Urine Nitrite NEGATIVE, Urine Bilirubin NEGATIVE, Urine Urobilinogen 0.2, Urine Leukocyte Esterase NEGATIVE, Urine WBC (Auto) 1, Urine RBC (Auto) 2, Urine Hyaline Casts (Auto) 0, Urine Bacteria (Auto) N EGATIVE, Urine Squamous Epithelial Cells 0, Urine Mucus (Auto) SMALL, Urine Sperm (Auto) CBC/BMP Laboratory Tests 04/25/19 10:43 Impression Crohn's Disease small bowel obstruction clinically improved, still somewhat distended though no abdominal discomfort or cramping. He reports he is passing flatus will advance to clears and see how he does. Plan / VTE VTE Prophylaxis Ordered?: Yes ARPIT HOGAN MD Apr 26, 2019 09:26
[2019-04-26 14:00] VITALS: BP 99/68
[2019-04-26 22:00] VITALS: BP 107/68
[2019-04-27 06:00] VITALS: BP 119/69
[2019-04-27] MEDS: LR 1,000 ML IV SCH (06:38)
[2019-04-27] MEDS: PANTOPRAZOLE 40MG INJ (PROTONIX) (C9113) IV SCH (08:25)
[2019-04-27] MEDS: ENOXAPARIN 40 MG/0.4 ML SYRINGE (J1650) SC SCH (08:25)
[2019-04-27] MEDS ORDERED: FLUBLOK(EGG FREE)(QUAD)INFLUENZA VACC 0.5ML SYRINGE (90682)18YRS&OLDER IM ONE (09:00)
--- NOTE | 2019-04-27 14:32 | IPN ---
DATE: 04/27/2019 HISTORY: The patient was admitted on April 25 with evidence for a recurrent intestinal obstruction secondary to a stricture from Crohn's disease. He has been admitted several times for an obstruction associated with this distal small bowel stricture. He was started on some clear liquids yesterday and reports that he has tolerated these well. He has had some significant flatus. He has been voiding well. He denies any nausea or vomiting today and has no significant abdominal pain. Vital signs: Show that he has been afebrile. Pulse is in the 60s generally with good blood pressure. Intake and output shows that yesterday he had 3400 in, 1900 which was oral. His urine output has been excellent. PHYSICAL EXAMINATION: The patient is lying quietly on the hospital bed. He is alert and oriented and appears comfortable. Abdomen is flat. He has active bowel sounds. There is no tympany to percussion. The abdomen appears soft and he has no significant tenderness on palpation. IMPRESSION Patient's an obstruction appears to have resolved again. He reports that this is the third time that he has come in with an obstruction in the last year or so. He does follow with Dr. Pat Funk in [place] who manages his Humira injections. PLAN: As the patient is tolerating clear liquids now without any problems, I will discharge him home. He knows to stick with the liquids for several days and then gradually advance his diet as tolerated. He will follow up again with Dr. Funk but I anticipate she will advise him again that surgery is likely to be required to prevent further obstructions. He is certainly free to follow up with Dr. Mcarthur if he wishes to pursue surgical intervention. XIN
== END 2019-04-27 15:15 | disposition home or self-care (01) | DRG 245 ==
LOC: M ED 10:36 → EDBD 10:36 → M ED INP 14:49 → M MSPAV 16:30
PROVIDERS: ADMIT Surgery; ATTEND Surgery
DX: K50.912 Crohn's disease, unspecified, with intestinal obstruction (principal); Z88.2 Allergy status to sulfonamides; Z79.899 Other long term (current) drug therapy

== ENCOUNTER 2019-05-07 09:59 | Outpatient (RCR) | payer OTHER ==
[~2019-05-07 09:59] MED LIST changes: +FLON1SPR; +HUMI40KI SC
--- NOTE | 2019-05-07 15:37 | RADONC ---
RADIATION ONCOLOGY SIMULATION NOTE DATE: 05/07/2019 CHART NUMBER: [id number] Mr. Paula was taken to the linear accelerator today for clinical setup of his right caodaism skin field. Setup was accomplished without difficulty or discomfort. Radiation treatment planning is underway. An immobilization device was created and will be used throughout the course of treatment. It was created without difficulty or discomfort. I was physically present throughout the course of clinical setup simulation.
== END 2019-05-09 ==
LOC: M ONCR 09:59
PROVIDERS: ATTEND Radiology Radiation Oncology
DX: C44.309 Unspecified malignant neoplasm of skin of other parts of face (principal)

== ENCOUNTER 2019-06-05 09:45 | Outpatient (RCR) | payer OTHER ==
--- NOTE | 2019-05-20 10:12 | RADONC ---
RADIATION ONCOLOGY PROGRESS NOTE DATE: 05/20/2019 CHART NUMBER: [id number] Mr. Paula is presently at a dose of 1500 cGy to his right roman catholic and is tolerating treatments quite well at this point with no complaints related to his radiation therapy. He is having no skin discomfort or other problems. REVIEW OF SYSTEMS: The patient's review of systems is noncontributory. He denies nausea, vomiting, fevers, chills, night sweats, diplopia, headaches, anxiety or depression, anorexia, weight loss, visual disturbances, chest pain, urinary or bowel difficulties, bone pain or neurological problems. PHYSICAL EXAMINATION: The patient's skin is in excellent condition with no evidence of radiation change present. There is no moist or dry desquamation. The remainder of his physical exam remains unchanged. Mr. Paula is tolerating treatments quite well and radiation will continue as scheduled.
--- NOTE | 2019-05-28 10:04 | RADONC ---
RADIATION ONCOLOGY PROGRESS NOTE DATE: 05/27/2019 CHART NUMBER: [id number] Mr. Paula is presently at a dose of 2750 cGy to his right scalp and is tolerating treatments quite well at this point with no complaints related to his radiation therapy. He is having no significant skin pain or other problems. The patient's review of systems is noncontributory. He denies nausea, vomiting, fevers, chills, night sweats, diplopia, headaches, anxiety or depression, anorexia, weight loss, visual disturbances, chest pain, urinary or bowel difficulties, bone pain, or neurological problems. PHYSICAL EXAMINATION: The patient's skin is in good condition with no evidence of moist or dry desquamation. The remainder of his physical exam remains unchanged. Mr. Paula is tolerating treatments quite well and radiation will continue as scheduled.
--- NOTE | 2019-06-05 07:19 | RADONC ---
RADIATION ONCOLOGY PROGRESS NOTE DATE: 06/03/2019 CHART NUMBER: [id number] Mr. Paula is presently at a dose of 3750 cGy to the skin of his right islam and is tolerating treatments quite well at this point with no complaints related to his radiation therapy. He has no skin pain or other problems. REVIEW OF SYSTEMS: The patient's review of systems is noncontributory. He denies nausea, vomiting, fevers, chills, night sweats, diplopia, headaches, anxiety or depression, anorexia, weight loss, visual disturbances, chest pain, urinary or bowel difficulties, bone pain or neurological problems. PHYSICAL EXAMINATION: The patient's skin is in good condition with no evidence of moist or dry desquamation. There is some erythema and tanning present. The remainder of his physical exam remains unchanged. Mr. Paula is tolerating treatments quite well and radiation will continue as scheduled.
== END 2019-06-08 ==
LOC: M ONCR 09:45
PROVIDERS: ATTEND Radiology Radiation Oncology
DX: C44.309 Unspecified malignant neoplasm of skin of other parts of face (principal)

== ENCOUNTER 2019-06-12 09:45 | Outpatient (RCR) | payer OTHER ==
--- NOTE | 2019-06-11 11:07 | RADONC ---
RADIATION ONCOLOGY TREATMENT NOTE DATE OF SERVICE: 06/11/2019 CHART #: [id number] Mr. 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 So far, he has received a dose of 4750 cGy in 19 fractions. There is mild to marked skin erythema of the right quaker. There is slight itching at times. He denies any headache and dizziness. I have discussed skin care with him. Otherwise, he is tolerating well without unusual side effect and the radiation therapy will be completed tomorrow. MTDD
[~2019-06-12 09:45] MED LIST changes: +OMEP-172 PO; -OMEP20CA4 PO
--- NOTE | 2019-06-12 11:46 | RADONC ---
RADIATION ONCOLOGY Treatment Summary DATE OF SERVICE: 06/12/2019 CHART NUMBER: Mr. 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 He has a history of basal cell cancer of the left pentecostal previously treated by surgical excision. He started radiation therapy on 05/13/2019 and received a dose of 6600 cGy in 20 fractions using 6 MeV electron beams with a 0.5 bolus from 05/13/2019 to 06/12/2019 in 30 elapsed days. His treatment was uneventful. He developed moderate to marked skin erythema without any openings. Discussed continuous skin care and he was advised to continue his followup with the physicians involved and he was also asked to return here in one month for checkup. RAFAELD
== END 2019-07-09 ==
LOC: M ONCR 09:45
PROVIDERS: ATTEND Radiology Radiation Oncology
DX: C44.309 Unspecified malignant neoplasm of skin of other parts of face (principal)

== ENCOUNTER → 2019-07-17 | Outpatient (CLI) | payer OTHER ==
--- NOTE | 2019-07-19 06:42 | RADONC ---
RADIATION ONCOLOGY FOLLOWUP NOTE DATE: 07/17/2019 CHART NUMBER: [id number] DIAGNOSIS: Basal cell carcinoma. ECOG PERFORMANCE STATUS: 0 FOLLOWUP NOTE: Mr. Paula is a very pleasant 58-year-old white male with the diagnosis of a small basal cell carcinoma involving his right yarsani who is presenting to us today for routine followup visit 1 month post completion of external beam radiation therapy. The patient presents today reporting that he is doing quite well with no complaints at this time related to his radiation therapy or disease. He is having no skin pain or other problems. REVIEW OF SYSTEMS: The patient's review of systems is noncontributory. He denies nausea, vomiting, fevers, chills, night sweats, diplopia, headaches, anxiety or depression, anorexia, weight loss, visual disturbances, chest pain, urinary or bowel difficulties, bone pain or neurological problems. PHYSICAL EXAMINATION: The patient's skin in the treated field is in excellent condition with just some minimal tanning present. There is no evidence of moist or dry desquamation. There is a small scab present over his original site. There are no other lesions present over the patient's scalp, face or neck. There is no palpable preauricular, cervical, supraclavicular or infraclavicular lymphadenopathy present. ASSESSMENT: The patient is clinically BENITA at this time. I have discharged him from my followup except on a p.r.n. basis. He has my cell phone number and office number and should he have any questions, I am more than happy to see him at anytime without hesitation. In the meantime, he will continue his followup with his primary care doctor, Dr. Pilar Castellon. cc: Pilar Castellon MD
== END ==
LOC: M ONCR 10:32
PROVIDERS: ATTEND Radiology Radiation Oncology
DX: C44.309 Unspecified malignant neoplasm of skin of other parts of face (principal)

== ENCOUNTER → 2019-12-04 | Outpatient (CLI) | payer OTHER ==
[~2019-12-04] MED LIST changes: -OMEP-172 PO; +OMEP1CAP73 PO
[2019-12-04 09:18] LABS: HEMOGLOBIN 12.8 g/dl (13.5-17.5); MEAN CORPUSCULAR HEMOGLOBIN 29.7 pg (27.0-33.0); MEAN CORPUSCULAR HGB CONC 32.8 g/dl (32.0-36.5); MEAN CORPUSCULAR VOLUME 90.5 fl (80.0-96.0); PLATELET COUNT, AUTOMATED 219 10^3/uL (150-450); RED BLOOD COUNT 4.31 10^6/uL (4.30-6.10); WHITE BLOOD COUNT 7.5 10^3/uL (4.0-10.0)
[2019-12-04 09:37] LABS: ERYTHROCYTE SEDIMENTATION RATE 25 mm/hr (0-20)
[2019-12-04 09:47] LABS: ALBUMIN 3.4 GM/DL (3.2-5.2); ALT/SGPT 23 U/L (12-78); BILIRUBIN,TOTAL 0.6 MG/DL (0.2-1.0); BLOOD UREA NITROGEN 17 MG/DL (7-18); C REACTIVE PROTEIN QUANTITATIV < 0.30 MG/DL (0.00-0.30); CALCIUM LEVEL 8.7 MG/DL (8.5-10.1); CARBON DIOXIDE LEVEL 28 MEQ/L (21-32); CHLORIDE LEVEL 109 MEQ/L (98-107); CREATININE FOR GFR 1.04 MG/DL (0.70-1.30); GLOMERULAR FILTRATION RATE > 60.0 (>56); GLUCOSE, FASTING 83 MG/DL (70-100); POTASSIUM SERUM 4.2 MEQ/L (3.5-5.1); SODIUM LEVEL 144 MEQ/L (136-145); TOTAL PROTEIN 7.1 GM/DL (6.4-8.2)
[2019-12-04 09:56] LABS: TOTAL 25(OH) VITAMIN D 40.1 NG/ML (30.0-100.0)
== END ==
LOC: M LAB 08:09
PROVIDERS: ATTEND Internal Medicine Gastroenterology
DX: K50.90 Crohn's disease, unspecified, without complications (principal)

== ENCOUNTER → 2019-12-04 | Outpatient (CLI) | payer OTHER ==
[2019-12-04 09:53] LABS: ALBUMIN 3.4 GM/DL (3.2-5.2); ALT/SGPT 22 U/L (12-78); BILIRUBIN,TOTAL 0.6 MG/DL (0.2-1.0); BLOOD UREA NITROGEN 17 MG/DL (7-18); CALCIUM LEVEL 8.5 MG/DL (8.5-10.1); CARBON DIOXIDE LEVEL 28 MEQ/L (21-32); CHLORIDE LEVEL 109 MEQ/L (98-107); CHOLESTEROL LEVEL 128 MG/DL (<200); CHOLESTEROL RISK RATIO 2.031 (<5); CREATININE FOR GFR 1.03 MG/DL (0.70-1.30); GLOMERULAR FILTRATION RATE > 60.0 (>56); GLUCOSE, FASTING 84 MG/DL (70-100); HDL CHOLESTEROL 63 MG/DL (>40); LDL CHOLESTEROL 48 MG/DL (<100); NON-HDL-C 65 MG/DL; POTASSIUM SERUM 4.2 MEQ/L (3.5-5.1); SODIUM LEVEL 144 MEQ/L (136-145); TOTAL PROTEIN 6.9 GM/DL (6.4-8.2); TRIGLYCERIDES LEVEL 84 MG/DL (<150)
== END ==
LOC: M LAB 08:05
PROVIDERS: ATTEND Physician Assistant
DX: I42.8 Other cardiomyopathies (principal)

== ENCOUNTER 2020-05-24 20:55 | Inpatient (IN) | payer OTHER ==
[~2020-05-24] VITALS: Ht 177.8 cm; Wt 65.0 kg
[2020-05-24] MEDS ORDERED: METOCLOPRAMIDE INJ 10MG/2ML VIAL (J2765 PER 1) IV ONE (22:00)
[2020-05-24] MEDS ORDERED: NS 1,000 ML IV ONE (22:00)
--- NOTE | 2020-05-24 22:20 | REPVR ---
PROCEDURE INFORMATION: Exam: XR Complete Acute Abdomen Series Exam date and time: 05/24/2020 10:00 PM Age: 59 years old Clinical indication: Abdominal pain; Acute TECHNIQUE: Imaging protocol: XR complete acute abdomen series, including 2 or more views of the abdomen and a single view chest. COMPARISON: CR Abdomen,Flat Upright,PA CHEST 06/13/2018 8:58 AM FINDINGS: Lungs: Normal. No consolidation. Pleural space: Normal. No pneumothorax. Heart/Mediastinum: Normal. No cardiomegaly. Gastrointestinal tract: Minimal to mild gas in the GI tract without abnormal dilatation. No abnormal air-fluid levels. Intraperitoneal space: No free air. Bones/joints: Normal. No acute fracture. Soft tissues: Normal. IMPRESSION: 1. Negative chest. 2. Negative abdomen with minimal to mild gas which is within normal limits. Electronically signed by: Surinder Funk On 05/24/2020 22:20:36 PM
[2020-05-24 22:42] LABS: BASO % 0.1 % (0.0-1.0); HEMATOCRIT 41.3 % (42.0-52.0); HEMOGLOBIN 13.4 g/dl (13.5-17.5); LYMPH # 0.4 10^3/uL (1.5-5.0); LYMPH % 2.2 % (24.0-44.0); MEAN CORPUSCULAR HEMOGLOBIN 28.9 pg (27.0-33.0); MEAN CORPUSCULAR HGB CONC 32.4 g/dl (32.0-36.5); MONO # 0.5 10^3/uL (0.0-0.8); MONO % 2.6 % (0.0-5.0); NEUTROPHILS # 16.6 10^3/uL (1.5-8.5); NEUTROPHILS % 94.6 % (36.0-66.0); PLATELET COUNT, AUTOMATED 243 10^3/uL (150-450); RED BLOOD COUNT 4.64 10^6/uL (4.30-6.10); WHITE BLOOD COUNT 17.6 10^3/uL (4.0-10.0)
[2020-05-24 23:02] LABS: ERYTHROCYTE SEDIMENTATION RATE 27 mm/hr (0-20)
[2020-05-24 23:29] LABS: ALBUMIN 3.8 GM/DL (3.2-5.2); BILIRUBIN,DIRECT 0.2 MG/DL (0.0-0.2); BILIRUBIN,TOTAL 0.8 MG/DL (0.2-1.0); C REACTIVE PROTEIN QUANTITATIV 0.35 MG/DL (0.00-0.30); TOTAL PROTEIN 7.6 GM/DL (6.4-8.2)
[2020-05-24] MEDS: GASTROGRAFIN SOLUTION 30ML PO SCH (23:39)
[2020-05-25] MEDS: GASTROGRAFIN SOLUTION 30ML PO SCH (00:15)
[2020-05-25] MEDS ORDERED: ISOVUE-370 76% 100ML VIAL As Ordered ONE (01:09)
--- NOTE | 2020-05-25 01:38 | REPVR ---
PROCEDURE INFORMATION: Exam: CT Abdomen And Pelvis With Contrast Exam date and time: 05/25/2020 1:21 AM Age: 59 years old Clinical indication: Abdominal pain; Additional info: Abdominal pain; R/O obstruction TECHNIQUE: Imaging protocol: Computed tomography of the abdomen and pelvis with intravenous contrast. Radiation optimization: All CT scans at this facility use at least one of these dose optimization techniques: automated exposure control; mA and/or kV adjustment per patient size (includes targeted exams where dose is matched to clinical indication); or iterative reconstruction. Contrast material: ISO 370; Contrast volume: 100 ml; Contrast route: INTRAVENOUS (IV); COMPARISON: CT ABD/PEL W/IV ORAL CONTRAS 04/25/2019 1:13 PM FINDINGS: Liver: The liver attenuation is 85 Hounsfield units and the spleen is 120 Hounsfield units. Gallbladder and bile ducts: Normal. No calcified stones. No ductal dilation. Pancreas: Normal. No ductal dilation. Spleen: Normal. No splenomegaly. Adrenal glands: Normal. No mass. Kidneys and ureters: The kidneys demonstrate numerous small cysts bilaterally measuring up to 15 mm bilaterally with a Hounsfield measurement of 14. Findings may reflect polycystic kidneys. No imaging follow-up is recommended. Stomach and bowel: There is an ileocolic anastomosis in the right lower quadrant. The last few cm of the small bowel are collapsed with wall thickening and associated stranding into the surrounding fat consistent with distal enteritis. There is proximal distention of small bowel with air-fluid levels. The inflammatory change around the distal small bowel and the distention of proximal small bowel is increased since the prior study. The colon is nearly collapsed. There is an anastomosis at the rectosigmoid. Appendix: The appendix appears to be absent. Intraperitoneal space: Unremarkable. No free air. No significant fluid collection. Vasculature: Unremarkable. No abdominal aortic aneurysm. Lymph nodes: Unremarkable. No enlarged lymph nodes. Urinary bladder: Unremarkable as visualized. Reproductive: Unremarkable as visualized. Bones/joints: Unremarkable. No acute fracture. Soft tissues: Unremarkable. IMPRESSION: 1. Small-bowel obstruction related to inflammatory changes or enteritis of the distal small bowel which is only a few cm in length. The inflammatory change or enteritis and the degree of distention of proximal small bowel is slightly increased overall since 04/25/2019 and consistent with Crohn's disease. 2. There has been prior partial resection with ileocolic anastomosis in the right lower quadrant which is similar. 3. Mild fatty infiltration of the liver. COMMENTS: Consistent with the [employer]'s Incidental Findings Committee white paper (J Am Nima Radiol 2018): Any incidental renal lesion less than 1 cm or classified as too small to characterize, or any incidental cystic renal lesion characterized as simple-appearing, is likely benign. No follow-up imaging is recommended for these lesions per consensus recommendations based on imaging criteria. Electronically signed by: Surinder Funk On 05/25/2020 01:38:12 AM
[2020-05-25] MEDS ORDERED: MORPHINE 4 MG/ML 1ML VIAL/SYRINGE (J2270) IV ONE (01:45)
[2020-05-25] MEDS ORDERED: D31000TA2 PO (02:35)
[2020-05-25] MEDS ORDERED: CVS1CAP2 PO (02:35)
[2020-05-25] MEDS ORDERED: MIRA3350 PO (02:36)
[2020-05-25] MEDS ORDERED: NS 1,000 ML IV ONE ×2 (03:00→05:30)
[2020-05-25] MEDS: metroNIDAZOLE 500 MG in IV 1 EA IV SCH ×3 (03:55→20:12)
[2020-05-25] MEDS: CIPROFLOXACIN 400 MG in IV 1 EA IV SCH ×2 (05:26→16:58)
--- NOTE | 2020-05-25 05:33 | HPEPDOC ---
[facility] Medical History & Physical Date of Admission May 25, 2020 Date of Service: May 25, 2020 History and Physical CHIEF COMPLAINT: Abdominal pain, nausea, vomiting since yesterday HISTORY OF PRESENT ILLNESS: 59-year-old male with history of Crohn's disease, numerous complications including fistula, ileostomy, strictures, on chronic Humira, presents to emergency room with 2 day history of increasing abdominal pain that feels like contractions every 2-3 minutes without fever, chills, associated with nausea, vomiting, and a 10 pound weight loss in the past few weeks. Patient did not get his Humira due to insurance issues. Last Monday and presented to the ER for further evaluation. CT abdomen and pelvis shows small bowel obstruction and possible Crohn's exacerbation. Patient denied any diarrhea, bloody stools, mouth ulcers, joint pains. He complains of generalized weakness, decrease in appetite. Hospitalist was called to admit for bowel obstruction and Crohn's disease exacerbation, general surgeon, Dr. Casillas has been consulted. GI Dr. Grijalva will be available at 7 AM on 05/25/2020 for consult. ALLERGIES: Please see below. HOME MEDICATIONS: Please see below. PAST MEDICAL HISTORY: Crohn's disease with fistula, strictures, status post resection and ileostomy. Ileostomy with reversal, dyslipidemia, gastroesophageal reflux disease, hypertension, vitamin D deficiency, vitamin B12 deficiency PAST SURGICAL HISTORY: Umbilical hernia repair, bowel resection for fistula and stricture from Crohn's disease 2007 at [facility] in [place], coronary angiogram, right inguinal hernia repair 2, ileostomy and ileal ileostomy reversal3 months later HOME MEDICATIONS SEE BELOW ALLERGIES SEE BELOW SOCIAL HISTORY: Nonsmoker, no alcohol use or recreational drug use. 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 GENERAL APPEARANCE: Cachectic Awake, alert, orientedx3 . No respiratory distress. Anicteric. No jaundice HEENT: Normocephalic, atraumatic. [place] palpebral conjunctivae. Dry mucous membranes No JVD, thyromegaly or cervical lymphadenopathy. No mouth ulcers. No pharyngeal erythema CHEST: Air entry is equal bilaterally. Clear to auscultation. No adventitious breath sounds HEART: S1, S2 regular rate rhythm, no murmurs, rubs or gallops. No carotid bruit ABDOMEN: soft, hypoactive bowel sounds., Well-healed surgical scars in the mid abdomen, right ileostomy site tympanitic , slightly tender in the epigastric and bilateral lower quadrants SKIN: Warm, dry., Well perfused, pink in color EXTREMITIES: No cyanosis No edema identified. LABORATORY DATA: Please see below. MICROBIOLOGY: Please see below. IMAGING: Exam: CT Abdomen And Pelvis With Contrast Exam date and time: 05/25/2020 1:21 AM Age: 59 years old Clinical indication: Abdominal pain; Additional info: Abdominal pain; R/O obstruction TECHNIQUE: Imaging protocol: Computed tomography of the abdomen and pelvis with intravenous contrast. Radiation optimization: All CT scans at this facility use at least one of these dose optimization techniques: automated exposure control; mA and/or kV adjustment per patient size (includes targeted exams where dose is matched to clinical indication); or iterative reconstruction. Contrast material: ISO 370; Contrast volume: 100 ml; Contrast route: INTRAVENOUS (IV); COMPARISON: CT ABD/PEL W/IV ORAL CONTRAS 04/25/2019 1:13 PM FINDINGS: Liver: The liver attenuation is 85 Hounsfield units and the spleen is 120 Hounsfield units. Gallbladder and bile ducts: Normal. No calcified stones. No ductal dilation. Pancreas: Normal. No ductal dilation. Spleen: Normal. No splenomegaly. Adrenal glands: Normal. No mass. Kidneys and ureters: The kidneys demonstrate numerous small cysts bilaterally measuring up to 15 mm bilaterally with a Hounsfield measurement of 14. Findings may reflect polycystic kidneys. No imaging follow-up is recommended. Stomach and bowel: There is an ileocolic anastomosis in the right lower quadrant. The last few cm of the small bowel are collapsed with wall thickening and associated stranding into the surrounding fat consistent with distal enteritis. There is proximal distention of small bowel with air-fluid levels. The inflammatory change around the distal small bowel and the distention of proximal small bowel is increased since the prior study. The colon is nearly collapsed. There is an anastomosis at the rectosigmoid. Appendix: The appendix appears to be absent. Intraperitoneal space: Unremarkable. No free air. No significant fluid collection. Vasculature: Unremarkable. No abdominal aortic aneurysm. Lymph nodes: Unremarkable. No enlarged lymph nodes. Urinary bladder: Unremarkable as visualized. Reproductive: Unremarkable as visualized. Bones/joints: Unremarkable. No acute fracture. Soft tissues: Unremarkable. IMPRESSION: 1. Small-bowel obstruction related to inflammatory changes or enteritis of the distal small bowel which is only a few cm in length. The inflammatory change or enteritis and the degree of distention of proximal small bowel is slightly increased overall since 04/25/2019 and consistent with Crohn's disease. 2. There has been prior partial resection with ileocolic anastomosis in the right lower quadrant which is similar. 3. Mild fatty infiltration of the liver. ASSESSMENT AND PLAN: 59-year-old male with history of Crohn's disease, numerous complications including fistula, ileostomy, strictures, on chronic Humira, presents to emergency room with 2 day history of increasing abdominal pain that feels like contractions every 2-3 minutes without fever, chills, associated with nausea, vomiting, and a 10 pound weight loss in the past few weeks. Patient did not get his Humira due to insurance issues. Last Monday and presented to the ER for further evaluation. CT abdomen and pelvis shows small bowel obstruction and possible Crohn's exacerbation. Patient denied any diarrhea, bloody stools, mouth ulcers, joint pains. He complains of generalized weakness, decrease in appetite. Hospitalist was called to admit for bowel obstruction and Crohn's disease exacerbation, general surgeon, Dr. Casillas has been consulted. GI Dr. Grijalva will be available at 7 AM on 05/25/2020 for consult. Small bowel obstruction secondary to possible recurrent strictures from Crohn's disease -Nothing by mouth, IV fluids, no nasogastric tube. Antiemetics as needed. Hypoglycemic protocol, general surgical consult, Dr. Casillas. Crohn's disease exacerbation with history of strictures fistulas requiring ileostomy and ileostomy reversal in the past -On chronic Humira but did not receive his dose this past week. Patient given IV Cipro, Flagyl and IV Solu-Medrol. Defer to gastroenterology for further recommendations General surgery has been consulted . dyslipidemia, -Chronic. Will hold patient's medications until he resumes oral intake gastroesophageal reflux disease -IV Protonix hypertension, currently with low blood pressure -Lisinopril has been discontinued. Hypotension -Due to decreased oral intake. IV fluid trial. Currently, and IV antibiotics, Cipro and Flagyl Failure to thrive -Weight loss/protein calorie malnutrition. BMI 20.6 , May consider nutrition consult and chronic TPN. Check pre-albumin Diet nothing by mouth CODE STATUS full code DVT prophylaxis. Compression stockings Vital Signs Vital Signs Date Time Temp Pulse Resp B/P (MAP) Pulse Ox O2 Delivery O2 Flow Rate FiO2 05/25/20 01:53 79 16 116/64 99 Room Air 05/24/20 21:14 98.0 Laboratory Data Labs 24H Laboratory Tests 2 05/24/20 22:30: Immature Granulocyte % (Auto) 0.5, Neutrophils (%) (Auto) 94.6H, Lymphocytes (%) (Auto) 2.2L, Monocytes (%) (Auto) 2.6, Eosinophils (%) (Auto) 0.0, Basophils (%) (Auto) 0.1, Neutrophils # (Auto) 16.6H, Lymphocytes # (Auto) 0.4L, Monocytes # (Auto) 0.5, Eosinophils # (Auto) 0.0, Basophils # (Auto) 0.0, Nucleated Red Blood Cells % (auto) 0.0, Erythrocyte Sedimentation Rate 27H, Lactic Acid Level 1.0, Total Bilirubin 0.8, Direct Bilirubin 0.2, Aspartate Amino Transf (AST/SGOT) 27, Alanine Aminotransferase (ALT/SGPT) 23, Alkaline Phosphatase 105, C-Reactive Protein, Quantitative 0.35H, Total Protein 7.6, Albumin 3.8, Albumin/Globulin Ratio 1.0, Lipase 122 05/24/20 22:53: POC Glucose (Misc Panel) 111H, POC Sodium (Misc Panel) 138, POC Potassium (Misc Panel) 4.2, POC Chloride (Misc Panel) 101, POC Total CO2 (Misc Panel) 30.0H, POC Blood Urea Nitrogen (Misc Panel 24, POC Ionized Calcium (Misc Panel) 4.6, POC Creatinine (Misc Panel) 1.0, POC Hematocrit (Misc Panel) 42.0 CBC/BMP Laboratory Tests 05/24/20 22:30 Home Medications Scheduled Adalimumab (Humira) 40 Mg/0.8 Ml Syringekit, 40 MG SC Q2WK EVERY OTHER monday Atorvastatin Calcium (Atorvastatin Calcium) 10 Mg Tab, 10 MG PO QHS Cholecalciferol (Vitamin D3) (Vitamin D3) 1,000 Unit Tablet, 1,000 UNITS PO DAILY Cyanocobalamin (Cyanocobalamin Injection) 1,000 Mcg/1 Ml Inj, 1,000 MCG IM Q2WK EVERY OTHER monday Lactobacillus Combo No.10 (Probiotic) 1 Each Capsule, 1 TAB PO DAILY Losartan Potassium (Losartan Potassium) 25 Mg Tablet, 25 MG PO QHS Multivitamins (Thera M Plus Tablet) 1 Tab Tab, 1 TAB PO DAILY Omeprazole (Omeprazole) 20 Mg Cap, 20 MG PO Q2D Scheduled PRN Acetaminophen (Acetaminophen) 500 Mg Tab, 1,000 MG PO Q6H PRN for PAIN Polyethylene Glycol 3350 (Miralax) 119 Gm Powder, 17 GM PO DAILY PRN for CONSTIPATION dilute in 8 ounces of water or juice Allergies Coded Allergies: Sulfa (Sulfonamide Antibiotics) (Verified Allergy, Intermediate, 01/06/19) cramping A-FIB/CHADSVASC A-FIB History Current/History of A-Fib/PAF?: No Current PO Anticoag Therapy: No Age/Risk Factor Scoring CHADSVASC: CHADSVASC Response (Comments) Value Age Risk Factor Age < 65 years old 0 Gender Risk Factor Male 0 Hx of CHF No 0 Hx of HTN Yes 1 Hx of Stroke/TIA/or VTE No 0 Hx of Diabetes No 0 Hx of Vascular Disease No 0 Total 1 Treatment Treatment ordered: NONE MALGORZATA GREGORY MD May 25, 2020 02:12
[2020-05-25 07:15] LABS: BASO % 0.1 % (0.0-1.0); EOS % 0.1 % (0.0-3.0); HEMATOCRIT 36.3 % (42.0-52.0); HEMOGLOBIN 11.5 g/dl (13.5-17.5); LYMPH # 0.8 10^3/uL (1.5-5.0); LYMPH % 7.7 % (24.0-44.0); MEAN CORPUSCULAR HEMOGLOBIN 28.9 pg (27.0-33.0); MEAN CORPUSCULAR HGB CONC 31.7 g/dl (32.0-36.5); MEAN CORPUSCULAR VOLUME 91.2 fl (80.0-96.0); MONO # 0.8 10^3/uL (0.0-0.8); MONO % 8.5 % (0.0-5.0); NEUTROPHILS # 8.1 10^3/uL (1.5-8.5); NEUTROPHILS % 83.2 % (36.0-66.0); PLATELET COUNT, AUTOMATED 209 10^3/uL (150-450); RED BLOOD COUNT 3.98 10^6/uL (4.30-6.10); WHITE BLOOD COUNT 9.7 10^3/uL (4.0-10.0)
[2020-05-25 07:41] LABS: ALBUMIN 2.9 GM/DL (3.2-5.2); ALT/SGPT 14 U/L (12-78); BILIRUBIN,TOTAL 0.5 MG/DL (0.2-1.0); BLOOD UREA NITROGEN 17 MG/DL (7-18); C REACTIVE PROTEIN QUANTITATIV 1.41 MG/DL (0.00-0.30); CALCIUM LEVEL 7.8 MG/DL (8.5-10.1); CARBON DIOXIDE LEVEL 27 MEQ/L (21-32); CHLORIDE LEVEL 106 MEQ/L (98-107); CK-MB VALUE MASS 1.4 NG/ML (<3.6); CPK CREATINE PHOSPHOKINASE 57 U/L (39-308); CREATININE FOR GFR 0.96 MG/DL (0.70-1.30); GLOMERULAR FILTRATION RATE > 60.0 (>56); GLUCOSE, FASTING 94 MG/DL (70-100); LIPASE 77 U/L (73-393); MB/CK RELATIVE INDEX 2.46 (< OR =4); SODIUM LEVEL 139 MEQ/L (136-145); TROPONIN I < 0.02 NG/ML (< 0.10)
[2020-05-25 07:59] LABS: ERYTHROCYTE SEDIMENTATION RATE 22 mm/hr (0-20)
[2020-05-25 08:15] VITALS: BP 104/60
[2020-05-25] MEDS ORDERED: methylPREDNISolone 125MG 2ML VIAL IV SCH (09:00)
[2020-05-25] MEDS: methylPREDNISolone 40MG 1ML VIAL IV SCH ×2 (09:34→20:12)
[2020-05-25] MEDS: NS 1,000 ML IV SCH ×2 (09:34→19:47)
[2020-05-25 14:00] VITALS: BP 106/60
[2020-05-25] MEDS ORDERED: LOSARTAN 25 MG TAB PO SCH (21:00)
[2020-05-25] MEDS ORDERED: ATORVASTATIN 10 MG TAB PO SCH (21:00)
[2020-05-25 22:00] VITALS: BP 106/61
[2020-05-26] MEDS: NS 1,000 ML IV SCH (04:08)
[2020-05-26] MEDS: metroNIDAZOLE 500 MG in IV 1 EA IV SCH (04:08)
[2020-05-26] MEDS: CIPROFLOXACIN 400 MG in IV 1 EA IV SCH (05:31)
[2020-05-26 06:00] VITALS: BP 111/61
[2020-05-26 06:37] LABS: BASO % 0.1 % (0.0-1.0); HEMATOCRIT 34.3 % (42.0-52.0); HEMOGLOBIN 10.7 g/dl (13.5-17.5); LYMPH # 0.5 10^3/uL (1.5-5.0); LYMPH % 4.7 % (24.0-44.0); MEAN CORPUSCULAR HGB CONC 31.2 g/dl (32.0-36.5); MONO # 0.2 10^3/uL (0.0-0.8); NEUTROPHILS # 9.1 10^3/uL (1.5-8.5); NEUTROPHILS % 92.9 % (36.0-66.0); PLATELET COUNT, AUTOMATED 206 10^3/uL (150-450); RED BLOOD COUNT 3.69 10^6/uL (4.30-6.10); WHITE BLOOD COUNT 9.8 10^3/uL (4.0-10.0)
[2020-05-26 07:06] LABS: BLOOD UREA NITROGEN 14 MG/DL (7-18); CARBON DIOXIDE LEVEL 27 MEQ/L (21-32); CHLORIDE LEVEL 110 MEQ/L (98-107); CREATININE FOR GFR 0.93 MG/DL (0.70-1.30); GLOMERULAR FILTRATION RATE > 60.0 (>56); GLUCOSE, FASTING 136 MG/DL (70-100); POTASSIUM SERUM 4.1 MEQ/L (3.5-5.1); SODIUM LEVEL 142 MEQ/L (136-145)
--- NOTE | 2020-05-26 08:11 | IPNPDOC ---
Text Note Date of Service The patient was seen on 05/26/20. NOTE No acute events overnight. The pain is almost completely resolved. He is reba erating diet and passing flatus. No BM yet. Denies nausea, or emesis. He is ambulating in the hallls. VSSAF NAD abd - soft, nt, nd labs - below A) 59y/o male with exacerbation of crohns dz with small bowel stricture P) d/c home with FLQ diet, abx, and, steroids taper. f/u with surgeon KEVIN to plan for surgery Bebeto Casillas DO VS,[place], I+O VS, [place], I+O Laboratory Tests 05/26/20 05:46 Vital Signs Date Time Temp Pulse Resp B/P (MAP) Pulse Ox O2 Delivery O2 Flow Rate FiO2 05/26/20 06:00 97.4 65 16 111/61 (78) 97 Room Air I&O- Last 24 Hours up to 6 AM 05/26/20 06:00 Intake Total 2220 ml Output Total 500 ml Balance 1720 ml LUIGI CASILLAS DO May 26, 2020 08:11
[2020-05-26] MEDS: methylPREDNISolone 40MG 1ML VIAL IV SCH (09:32)
--- NOTE | 2020-05-26 10:28 | CR ---
DATE OF CONSULTATION: 05/25/2020 REASON FOR CONSULTATION: Abdominal pain. HISTORY OF PRESENT ILLNESS: The patient is a 59-year-old male with a history of Crohn's disease who presented to the Emergency Room with a 2-day history of increasing abdominal pain. He has had previous surgeries for a fistula and strictures; the last one was about 13 years ago. At that time he had a bowel resection that was a major operation resulting in an ileostomy and he eventually had that reversed. He has not had any other problems in the last 13 years. The last 2-3 years he has started to notice increasing symptoms, and he has been on Humira. The last week had some difficulty obtaining his Humira due to an insurance glitch and he is wondering if that has some how resulted in this flare-up. Since coming to the Emergency Room last evening he has not had any nausea or vomiting. No fevers or chills. His abdominal pain is significantly improved. His labs have also improved already by this morning. He states that he is passing a small amount of flatus, but nothing significant yet and no bowel movements yet. Last colonoscopy was about a month ago down in [place]. He did have a stricture identified at the time that was very small and unable to be ballooned open. He was referred to a surgeon, who basically gave him the option of a liquid diet versus surgery. However he was told that the risk of surgery was high for complications and that they recommended to try the dietary changes first. However at this time he is realizing that he may have to proceed with that surgery upon discharge from here. PAST MEDICAL HISTORY: The patient's past medical history is significant for: 1. Crohn's disease. 2. Hypertension. 3. Vitamin D deficiency. 4. Vitamin B-12 deficiency. PAST SURGICAL HISTORY: The patient's past surgical history is significant for: 1. Umbilical hernia repair. 2. Bowel resection for fistula and strictures. 3. Coronary angiogram. 4. Right inguinal hernia repairs x2. 5. Ileostomy and Ileostomy reversal. ALLERGIES: SULFA. MEDICATIONS: Please see Medication Reconciliation. SOCIAL HISTORY: He denies drug, alcohol or tobacco abuse. FAMILY HISTORY: Noncontributory. REVIEW OF SYSTEMS: Pertinent positives and negatives as stated in the HPI. PHYSICAL EXAMINATION: GENERAL APPEARANCE: Alert and oriented x3, in no acute distress. VITAL SIGNS: Temperature 98, pulse 63, respirations 20, blood pressure 98/56, pulse oximetry 98% on room air. HEENT: Pupils are equally round and reactive to light and accommodation. HEART: S1, S2, regular rate and rhythm. LUNGS: Clear to auscultation bilaterally. ABDOMEN: Soft, nontender, nondistended. EXTREMITIES: No clubbing, cyanosis, or edema. LABORATORY STUDIES: White count 17.6, yesterday down to 9.7, hemoglobin 11.5, platelets 209, potassium 4, creatinine 0.96, lactic acid 1.1. IMAGING DATA: CT abdomen and pelvis showed small-bowel obstruction and likely related to inflammatory changes or enteritis of the distal small bowel which is very short segment in length. The inflammatory change is slightly increased from a previous CT from April 25, 2019, consistent with Crohn's disease. ASSESSMENT AND PLAN: The patient is a 59-year-old male currently with acute exacerbation of Crohn's disease. Recommendations to consult GI for appropriate steroid and Humira management. At this time he is already feeling significantly improved. Abdominal pain is gone. He has no nausea or vomiting, no abdominal pain and he is passing flatus. Recommend to get him on a good steroid regimen and then he can likely be discharged home within the next 24-48 hours. I also discussed with him that he should follow up with the surgeon down in [place], who he has already been established with to further discuss his surgical options as far as the stricture is concerned. He understands and agrees. In the meantime, we will start him on a clear liquid diet for today and see how well he does. XIN
[2020-05-26] MEDS ORDERED: PRED10TA2 PO (11:47)
[2020-05-26] MEDS ORDERED: FLAG500T PO (11:57)
[2020-05-26] MEDS ORDERED: CIPR-249 PO (11:57)
[2020-05-26] MEDS ORDERED: FLUBLOK(EGG FREE)(QUAD)INFLUENZA VACC 0.5ML SYRINGE 18YRS & OLDER IM ONE (12:30)
--- NOTE | 2020-05-26 13:24 | DS.PDOC ---
Discharge Summary General Date of Admission May 25, 2020 at 02:12 Date of Discharge 05/26/20 Discharge Summary PROCEDURES PERFORMED DURING STAY: [None]. DISCHARGE DIAGNOSES: Exacerbation of Crohn's disease with Stricture Recurrent SBO SECONDARY DIAGNOSIS: Hypertension, GERD, Dyslipidemia, Vit D def, Vit B12 deficiency, Peyronie's disease COMPLICATIONS/CHIEF COMPLAINT: Crohns Disease, Sbo. HOSPITAL COURSE: 59-year-old male with known history of Crohn's disease, had a previous ileostomy and subsequent reversal. He does have a long history of Crohn's disease since 1989 and prior multiple surgeries. Last one was in 2006 when he underwent a bowel resection which apparently included his terminal il eum. He was found to have several fistulas by the patient's account and had a more involved procedure than was apparently anticipated. He required a re- exploration several days later for bowel obstruction and had a nearly 2-week hospital stay. Since then, he has done fairly well with occasional ex acerbations. He does have episodes of SBO about 2 times every year for the past 3 years. He has been found to have a fixed stricture for which he has been referred to Colorectal surgeon by Dr Pat Antunez with whom he follows for his Crohn's disease. He has been placed on Humira for more than 1 year now to try to limit the times that he has been placed on prednisone. He came in this time again with acute onset abdominal pain, nausea and vomiting and Found to have another episode fo SBO. He thinks this was triggered by eating some tacos which had lettuce in it and some grapes. He thinks its the skin of the grapes and the lettuce which triggered this episode of SBO. He knows when he watches his diet he is good for 2 moths then he forgets and eats something with high fiber and lands into trouble. He was counselled about his diet. SBO Due to stricture near the ileocolic anastomotic site with inflammation from flare of Crohn's disease. There is a fixed stricture with fibrosis for which he will need definitive surgery at some point. He needs to follow up with his colorectal surgeon to address the stricture treated conservatively with IVf, pain control, antiemetics, Bowel rest Now tolerating full liquids diet. Crohn's disease flare Cipro and Flagyl continue steroids tapered continue Humira. Hypertension losartan Peyronie's disease no complaints at present GERD continue PPI Dyslipidemia. statin Vitamin D deficiency hold supplements temporarily Vitamin B12 deficiency. gets injections every 2 weeks DISCHARGE MEDICATIONS: Please see below. ALLERGIES: Please see below. PHYSICAL EXAMINATION ON DISCHARGE: VITAL SIGNS: Please see below. GENERAL APPEARANCE: Awake, alert, orientedx3, sitting up in bed in no distress. HEENT: Normocephalic, atraumatic. Moist mucous membranes , anicteric eyes NECK: No JVD, thyromegaly or cervical lymphadenopathy. CHEST: Air entry is equal bilaterally. Clear to auscultation. No adventitious breath sounds HEART: S1, S2 regular rate rhythm, no murmurs, rubs or gallops. No carotid bruit ABDOMEN: soft, nontender, good bowel sounds. Well-healed surgical scars in the mid abdomen, right ileostomy site SKIN: Warm, dry., Well perfused, pink in color EXTREMITIES: No cyanosis No edema identified. LABORATORY DATA: Please see below. ACTIVITY: [As tolerated]. DIET: Full liquid DISPOSITION: 01 Home, Self-Care. DISCHARGE INSTRUCTIONS: Follow up with Dr Pat Antunez Follow up with Own Surgeon. DISCHARGE CONDITION: [Stable]. TIME SPENT ON DISCHARGE:35 minutes. Vital Signs/I&Os Vital Signs Date Time Temp Pulse Resp B/P (MAP) Pulse Ox O2 Delivery O2 Flow Rate FiO2 05/26/20 06:00 97.4 65 16 111/61 (78) 97 Room Air I&O- Last 24 Hours up to 6 AM 05/26/20 06:00 Intake Total 2220 ml Output Total 500 ml Balance 1720 ml Laboratory Data Labs 24H Laboratory Tests 2 05/26/20 05:46: Immature Granulocyte % (Auto) 0.3, Neutrophils (%) (Auto) 92.9H, Lymphocytes (%) (Auto) 4.7L, Monocytes (%) (Auto) 2.0, Eosinophils (%) (Auto) 0.0, Basophils (%) (Auto) 0.1, Neutrophils # (Auto) 9.1H, Lymphocytes # (Auto) 0.5L, Monocytes # (Auto) 0.2, Eosinophils # (Auto) 0.0, Basophils # (Auto) 0.0, Nucleated Red Blood Cells % (auto) 0.0, Anion Gap 5L, Glomerular Filtration Rate > 60.0, Calcium Level 8.0L 05/26/20 09:19: Lab Scanned Report Miscellaneous Lab CBC/BMP Laboratory Tests 05/26/20 05:46 Discharge Medications Scheduled Adalimumab (Humira) 40 Mg/0.8 Ml Syringekit, 40 MG SC Q2WK, (Reported) EVERY OTHER monday Atorvastatin Calcium (Atorvastatin Calcium) 10 Mg Tab, 10 MG PO QHS, (Reported) Cholecalciferol (Vitamin D3) (Vitamin D3) 1,000 Unit Tablet, 1,000 UNITS PO DAILY, (Reported) Ciprofloxacin HCl (Cipro) 500 Mg Tablet, 1 TAB PO BID Cyanocobalamin (Cyanocobalamin Injection) 1,000 Mcg/1 Ml Inj, 1,000 MCG IM Q2WK, (Reported) EVERY OTHER monday Lactobacillus Combo No.10 (Probiotic) 1 Each Capsule, 1 TAB PO DAILY, (Reported) Losartan Potassium (Losartan Potassium) 25 Mg Tablet, 25 MG PO QHS, (Reported) Metronidazole (Flagyl) 500 Mg Tablet, 500 MG PO Q8H Multivitamins (Thera M Plus Tablet) 1 Tab Tab, 1 TAB PO DAILY, (Reported) Omeprazole (Omeprazole) 20 Mg Cap, 20 MG PO Q2D, (Reported) Prednisone (Prednisone) 10 Mg Tablet, 10 MG PO TAPER Take 4 tabs daily x 3 days, then 3 tabs daily x 3 days, then 2 tabs daily x 3 days, then 1 tab daily x 3 days and stop Scheduled PRN Acetaminophen (Acetaminophen) 500 Mg Tab, 1,000 MG PO Q6H PRN for PAIN, (Reported) Polyethylene Glycol 3350 (Miralax) 119 Gm Powder, 17 GM PO DAILY PRN for CONSTIPATION, (Reported) dilute in 8 ounces of water or juice Allergies Coded Allergies: Sulfa (Sulfonamide Antibiotics) (Verified Allergy, Intermediate, 01/06/19) CRISTINE Howard MD May 26, 2020 13:24
== END 2020-05-26 13:00 | disposition home or self-care (01) | DRG 245 ==
LOC: M ED 20:55 → M ED INP 05-25 02:12 → ENRESERV 05-25 07:00 → M ED INP 05-25 07:55 → M MS5PR 05-25 08:15
PROVIDERS: ADMIT General Practice; ATTEND Family Medicine
DX: K50.912 Crohn's disease, unspecified, with intestinal obstruction (principal); E46 Unspecified protein-calorie malnutrition; I95.9 Hypotension, unspecified; I10 Essential (primary) hypertension; K21.9 Gastro-esophageal reflux disease without esophagitis; E78.5 Hyperlipidemia, unspecified; E55.9 Vitamin D deficiency, unspecified; E53.8 Deficiency of other specified B group vitamins; N48.6 Induration penis plastica; Z79.899 Other long term (current) drug therapy; Z88.2 Allergy status to sulfonamides; Z68.20 Body mass index [BMI] 20.0-20.9, adult

== ENCOUNTER → 2020-06-24 | Outpatient (CLI) | payer OTHER ==
[~2020-06-24] MED LIST changes: +CIPR-249 PO; +CVS1CAP2 PO; +D31000TA2 PO; +MIRA3350 PO
[2020-06-24 18:19] LABS: HEMATOCRIT 36.6 % (42.0-52.0); HEMOGLOBIN 11.5 g/dl (13.5-17.5); MEAN CORPUSCULAR HGB CONC 31.4 g/dl (32.0-36.5); MEAN CORPUSCULAR VOLUME 92.4 fl (80.0-96.0); PLATELET COUNT, AUTOMATED 224 10^3/uL (150-450); RED BLOOD COUNT 3.96 10^6/uL (4.30-6.10); WHITE BLOOD COUNT 4.5 10^3/uL (4.0-10.0)
[2020-06-24 18:31] LABS: ALBUMIN 3.2 GM/DL (3.2-5.2); ALT/SGPT 24 U/L (12-78); BILIRUBIN,TOTAL 0.3 MG/DL (0.2-1.0); BLOOD UREA NITROGEN 24 MG/DL (7-18); CALCIUM LEVEL 8.7 MG/DL (8.5-10.1); CARBON DIOXIDE LEVEL 31 MEQ/L (21-32); CHLORIDE LEVEL 105 MEQ/L (98-107); CREATININE FOR GFR 1.09 MG/DL (0.70-1.30); GLOMERULAR FILTRATION RATE > 60.0 (>56); GLUCOSE, FASTING 77 MG/DL (70-100); POTASSIUM SERUM 3.9 MEQ/L (3.5-5.1); SODIUM LEVEL 140 MEQ/L (136-145); TOTAL PROTEIN 6.5 GM/DL (6.4-8.2)
[2020-06-24 18:42] LABS: TOTAL 25(OH) VITAMIN D 32.9 NG/ML (30.0-100.0); VITAMIN B12 LEVEL 701 PG/ML (247-911)
== END ==
LOC: M WUC 16:50
PROVIDERS: ATTEND Internal Medicine Gastroenterology
DX: K64.0 First degree hemorrhoids (principal); E55.9 Vitamin D deficiency, unspecified; K50.90 Crohn's disease, unspecified, without complications; K44.9 Diaphragmatic hernia without obstruction or gangrene; K21.9 Gastro-esophageal reflux disease without esophagitis

== ENCOUNTER → 2020-06-24 | Outpatient (CLI) | payer OTHER ==
[2020-06-24 18:28] LABS: BLOOD UREA NITROGEN 25 MG/DL (7-18); CALCIUM LEVEL 8.3 MG/DL (8.5-10.1); CARBON DIOXIDE LEVEL 31 MEQ/L (21-32); CHLORIDE LEVEL 105 MEQ/L (98-107); CREATININE FOR GFR 1.11 MG/DL (0.70-1.30); GLOMERULAR FILTRATION RATE > 60.0 (>56); GLUCOSE, FASTING 76 MG/DL (70-100); POTASSIUM SERUM 3.9 MEQ/L (3.5-5.1); SODIUM LEVEL 142 MEQ/L (136-145)
== END ==
LOC: M WUC 16:30
PROVIDERS: ATTEND Physician Assistant
DX: I42.8 Other cardiomyopathies (principal)

== ENCOUNTER → 2020-12-28 | Outpatient (REF) | payer OTHER | LOC: M LAB REF 18:19 | PROVIDERS: ATTEND Physician Assistant | DX: D04.5 Carcinoma in situ of skin of trunk (principal) ==

== ENCOUNTER → 2020-12-29 | Outpatient (CLI) | payer OTHER ==
[2020-12-29 12:19] LABS: ALBUMIN 3.7 GM/DL (3.2-5.2); ALT/SGPT 26 U/L (12-78); BILIRUBIN,TOTAL 0.7 MG/DL (0.2-1.0); BLOOD UREA NITROGEN 25 MG/DL (7-18); CALCIUM LEVEL 8.8 MG/DL (8.5-10.1); CARBON DIOXIDE LEVEL 25 MEQ/L (21-32); CHLORIDE LEVEL 106 MEQ/L (98-107); CHOLESTEROL LEVEL 164 MG/DL (<200); CHOLESTEROL RISK RATIO 1.744 (<5); CREATININE FOR GFR 1.08 MG/DL (0.70-1.30); GLOMERULAR FILTRATION RATE > 60.0 (>56); GLUCOSE, FASTING 89 MG/DL (70-100); HDL CHOLESTEROL 94 MG/DL (>40); LDL CHOLESTEROL 61 MG/DL (<100); NON-HDL-C 70 MG/DL; POTASSIUM SERUM 4.3 MEQ/L (3.5-5.1); SODIUM LEVEL 139 MEQ/L (136-145); TOTAL PROTEIN 7.5 GM/DL (6.4-8.2); TRIGLYCERIDES LEVEL 43 MG/DL (<150)
== END ==
LOC: M WUC 08:55
PROVIDERS: ATTEND Physician Assistant
DX: I42.8 Other cardiomyopathies (principal); E78.00 Pure hypercholesterolemia, unspecified

== ENCOUNTER → 2020-12-29 | Outpatient (CLI) | payer OTHER ==
[2020-12-29 12:13] LABS: ALBUMIN 3.7 GM/DL (3.2-5.2); ALT/SGPT 26 U/L (12-78); BILIRUBIN,TOTAL 0.6 MG/DL (0.2-1.0); BLOOD UREA NITROGEN 26 MG/DL (7-18); CARBON DIOXIDE LEVEL 25 MEQ/L (21-32); CHLORIDE LEVEL 107 MEQ/L (98-107); CREATININE FOR GFR 1.05 MG/DL (0.70-1.30); GLOMERULAR FILTRATION RATE > 60.0 (>56); GLUCOSE, FASTING 89 MG/DL (70-100); POTASSIUM SERUM 4.2 MEQ/L (3.5-5.1); SODIUM LEVEL 139 MEQ/L (136-145); TOTAL PROTEIN 7.2 GM/DL (6.4-8.2)
== END ==
LOC: M WUC 08:58
PROVIDERS: ATTEND Internal Medicine Gastroenterology
DX: K50.90 Crohn's disease, unspecified, without complications (principal); R94.5 Abnormal results of liver function studies

== ENCOUNTER → 2020-12-29 | Outpatient (CLI) | payer OTHER ==
[2020-12-29 11:44] LABS: HEMATOCRIT 43.1 % (42.0-52.0); HEMOGLOBIN 13.9 g/dl (13.5-17.5); MEAN CORPUSCULAR HEMOGLOBIN 29.8 pg (27.0-33.0); MEAN CORPUSCULAR HGB CONC 32.3 g/dl (32.0-36.5); MEAN CORPUSCULAR VOLUME 92.5 fl (80.0-96.0); PLATELET COUNT, AUTOMATED 295 10^3/uL (150-450); RED BLOOD COUNT 4.66 10^6/uL (4.30-6.10); WHITE BLOOD COUNT 13.6 10^3/uL (4.0-10.0)
[2020-12-29 12:14] LABS: ERYTHROCYTE SEDIMENTATION RATE 24 mm/hr (0-20)
[2020-12-29 12:15] LABS: ALBUMIN 3.9 GM/DL (3.2-5.2); ALT/SGPT 26 U/L (12-78); BILIRUBIN,DIRECT 0.2 MG/DL (0.0-0.2); BILIRUBIN,TOTAL 0.6 MG/DL (0.2-1.0); BLOOD UREA NITROGEN 26 MG/DL (7-18); C REACTIVE PROTEIN QUANTITATIV 0.72 MG/DL (0.00-0.30); CALCIUM LEVEL 8.9 MG/DL (8.5-10.1); CARBON DIOXIDE LEVEL 26 MEQ/L (21-32); CHLORIDE LEVEL 106 MEQ/L (98-107); CREATININE FOR GFR 1.05 MG/DL (0.70-1.30); GLOMERULAR FILTRATION RATE > 60.0 (>56); GLUCOSE, FASTING 89 MG/DL (70-100); POTASSIUM SERUM 4.2 MEQ/L (3.5-5.1); SODIUM LEVEL 140 MEQ/L (136-145); TOTAL PROTEIN 7.3 GM/DL (6.4-8.2)
== END ==
LOC: M WUC 08:52
PROVIDERS: ATTEND Nurse Practitioner Family
DX: K50.90 Crohn's disease, unspecified, without complications (principal); K44.9 Diaphragmatic hernia without obstruction or gangrene; K21.9 Gastro-esophageal reflux disease without esophagitis; R94.5 Abnormal results of liver function studies; K64.1 Second degree hemorrhoids

== ENCOUNTER → 2021-04-07 | Outpatient (CLI) | payer OTHER ==
[~2021-04-07] MED LIST changes: +ISOVUE-300 61% 50ML VIAL As Ordered ONE; +LIDOCAINE 1% MDV 20ML VIAL As Ordered ONE; +methylPREDNISolone SUSP 40MG/ML 1ML VIAL (DEPO MEDROL) As Ordered ONE
--- NOTE | 2021-04-07 15:14 | REP ---
INDICATION: LT SHOULDER OA W/PAIN. COMPARISON: None TECHNIQUE: The procedure was performed by STEPHANY Cottrell, under the direct supervision of Dr. Cervantes. The benefits and risks of the procedure were explained to the patient, and an informed consent was obtained. Directly prior to the start of the procedure, a formal time-out was completed in the procedure room. The left glenohumeral joint space was localized using fluoroscopic guidance. The skin was prepped and draped in a sterile fashion. Approximately 5 mL of 1% Lidocaine 10 mg/ml was used as a local anesthetic. Using fluoroscopic guidance, a #22 gauge spinal needle was inserted and advanced into the left glenohumeral joint space. Approximately 1 mL of Isovue 300 was injected to verify placement. Five mL of a solution containing 3 mL 1% lidocaine 10 mg/ml and 2 mL Depo-Medrol 40 milligrams/milliliter was injected into the joint space. The needle was removed and hemostasis was achieved. FINDINGS: The patient tolerated the procedure well and there were no immediate complications. IMPRESSION: 1. Fluoroscopically guided right shoulder intra-articular pain injection. 0.1 minutes of fluoroscopy time was utilized for this procedure. Some fluoroscopic images are performed with last image hold technology. These images require no additional radiation. <Electronically signed by Ilana Huerta > 04/07/21 1306 <Electronically signed by Abhijit Cervantes > 04/07/21 1513
== END ==
LOC: M RADPRO 11:49
PROVIDERS: ATTEND Physician Assistant Surgical
DX: M19.012 Primary osteoarthritis, left shoulder (principal)
CPT/HCPCS: 20610; 77002; J1030; Q9967

== ENCOUNTER → 2021-12-09 | Outpatient (CLI) | payer OTHER ==
[~2021-12-09] MED LIST changes: -D31000TA2 PO; -ISOVUE-300 61% 50ML VIAL As Ordered ONE; -LIDOCAINE 1% MDV 20ML VIAL As Ordered ONE; +LOSA25TA13 PO; -LOSA25TA14 PO; +VITA100093 PO; -methylPREDNISolone SUSP 40MG/ML 1ML VIAL (DEPO MEDROL) As Ordered ONE
[2021-12-09 10:24] LABS: HEMATOCRIT 40.2 % (42.0-52.0); MEAN CORPUSCULAR HGB CONC 32.3 g/dl (32.0-36.5); MEAN CORPUSCULAR VOLUME 92.6 fl (80.0-96.0); PLATELET COUNT, AUTOMATED 226 10^3/uL (150-450); RED BLOOD COUNT 4.34 10^6/uL (4.30-6.10); WHITE BLOOD COUNT 14.4 10^3/uL (4.0-10.0)
[2021-12-09 10:53] LABS: ERYTHROCYTE SEDIMENTATION RATE 57 mm/hr (0-20)
[2021-12-09 11:03] LABS: BLOOD UREA NITROGEN 17 MG/DL (7-18); CALCIUM LEVEL 9.5 MG/DL (8.8-10.2); CARBON DIOXIDE LEVEL 30 MEQ/L (21-32); CHLORIDE LEVEL 107 MEQ/L (98-107); CREATININE FOR GFR 1.03 MG/DL (0.70-1.30); GLOMERULAR FILTRATION RATE > 60.0 (>49); GLUCOSE, FASTING 83 MG/DL (70-100); POTASSIUM SERUM 4.4 MEQ/L (3.5-5.1); SODIUM LEVEL 141 MEQ/L (136-145)
[2021-12-09 11:04] LABS: ALBUMIN 3.4 GM/DL (3.2-5.2); ALT/SGPT 34 U/L (12-78); BILIRUBIN,TOTAL 0.8 MG/DL (0.2-1.0); C REACTIVE PROTEIN QUANTITATIV 7.02 MG/DL (0.00-0.30); TOTAL PROTEIN 7.4 GM/DL (6.4-8.2)
== END ==
LOC: M LAB 08:40
PROVIDERS: ATTEND Internal Medicine Gastroenterology
DX: K50.90 Crohn's disease, unspecified, without complications (principal); K59.00 Constipation, unspecified; D64.9 Anemia, unspecified; R94.5 Abnormal results of liver function studies

== ENCOUNTER → 2021-12-09 | Outpatient (CLI) | payer OTHER ==
[2021-12-09 10:25] LABS: HEMATOCRIT 39.8 % (42.0-52.0); HEMOGLOBIN 12.9 g/dl (13.5-17.5); MEAN CORPUSCULAR HEMOGLOBIN 30.1 pg (27.0-33.0); MEAN CORPUSCULAR HGB CONC 32.4 g/dl (32.0-36.5); MEAN CORPUSCULAR VOLUME 92.8 fl (80.0-96.0); PLATELET COUNT, AUTOMATED 219 10^3/uL (150-450); RED BLOOD COUNT 4.29 10^6/uL (4.30-6.10)
[2021-12-09 11:34] LABS: HEMOGLOBIN A1c 5.3 %
[2021-12-09 11:39] LABS: ALBUMIN 3.3 GM/DL (3.2-5.2); ALT/SGPT 36 U/L (12-78); BILIRUBIN,TOTAL 0.8 MG/DL (0.2-1.0); BLOOD UREA NITROGEN 16 MG/DL (7-18); CALCIUM LEVEL 9.7 MG/DL (8.8-10.2); CARBON DIOXIDE LEVEL 31 MEQ/L (21-32); CHLORIDE LEVEL 106 MEQ/L (98-107); CHOLESTEROL LEVEL 165 MG/DL (<200); CHOLESTEROL RISK RATIO 2.291 (<5); CREATININE FOR GFR 1.03 MG/DL (0.70-1.30); GLOMERULAR FILTRATION RATE > 60.0 (>49); GLUCOSE, FASTING 83 MG/DL (70-100); HDL CHOLESTEROL 72 MG/DL (>40); LDL CHOLESTEROL 74 MG/DL (<100); NON-HDL-C 93 MG/DL; POTASSIUM SERUM 4.3 MEQ/L (3.5-5.1); PROSTATIC SPECIFIC AG MONITOR 0.43 NG/ML (< 4.00); SODIUM LEVEL 141 MEQ/L (136-145); TESTOSTERONE 278 NG/DL (241-827); THYROID STIMULATING HORMONE 0.596 uIU/ML (0.358-3.740); TOTAL PROTEIN 7.3 GM/DL (6.4-8.2); TRIGLYCERIDES LEVEL 97 MG/DL (<150)
== END ==
LOC: M RAD 08:32
PROVIDERS: ATTEND Family Medicine
DX: D64.9 Anemia, unspecified (principal); R53.83 Other fatigue; E03.9 Hypothyroidism, unspecified; J43.9 Emphysema, unspecified

== ENCOUNTER 2021-12-27 20:21 | Inpatient (IN) | payer OTHER ==
[~2021-12-27] VITALS: Ht 177.8 cm; Wt 78.5 kg
[2021-12-27 22:38] LABS: HEMATOCRIT 36.6 % (42.0-52.0); HEMOGLOBIN 11.8 g/dl (13.5-17.5); MEAN CORPUSCULAR HEMOGLOBIN 29.5 pg (27.0-33.0); MEAN CORPUSCULAR HGB CONC 32.2 g/dl (32.0-36.5); MEAN CORPUSCULAR VOLUME 91.5 fl (80.0-96.0); PLATELET COUNT, AUTOMATED 264 10^3/uL (150-450)
[2021-12-27 22:41] LABS: WHITE BLOOD COUNT 33.4 10^3/uL (4.0-10.0)
[2021-12-27 22:43] LABS: ALBUMIN 2.8 GM/DL (3.2-5.2); BILIRUBIN,DIRECT 0.3 MG/DL (0.0-0.2); BILIRUBIN,TOTAL 0.5 MG/DL (0.2-1.0); CALCIUM LEVEL 8.2 MG/DL (8.8-10.2); CREATININE FOR GFR 1.68 MG/DL (0.70-1.30); GLOMERULAR FILTRATION RATE 44.6 (>49); POTASSIUM SERUM 3.7 MEQ/L (3.5-5.1); TOTAL PROTEIN 6.3 GM/DL (6.4-8.2)
[2021-12-27 22:47] LABS: RSV AMPLIFICATION NEGATIVE (NEGATIVE)
[2021-12-27 23:06] LABS: LYMPHOCYTES 3 % (16-44); METAMYELOCYTES 2 % (0-0); MONOCYTES 3 % (0-5); NEUTROPHILS 81 % (28-66); PLATELET ESTIMATE NORMAL (NORMAL)
[2021-12-27 23:07] LABS: PLATELET CLUMPS SMALL AMT
[2021-12-27] MEDS ORDERED: PIPERACILLIN/TAZOBACTAM SOD 3.375 GM in D5W MINI-BAG PLUS 50 ML IV ONE (23:20)
[2021-12-27] MEDS ORDERED: NS 2,080 ML in IV 1 EA IV ONE (23:20)
[2021-12-27] MEDS ORDERED: IPRATROPIUM 0.5MG/ALBUTEROL 2.5MG INH SOL UD 3ML (DUONEB) NEB ONE (23:20)
[2021-12-27] MEDS ORDERED: BENZONATATE 100MG CAPSULE PO ONE (23:20)
[2021-12-27 23:31] LABS: C REACTIVE PROTEIN QUANTITATIV 16.6 MG/DL (0.00-0.30)
[2021-12-27 23:43] LABS: CK-MB VALUE MASS < 1.0 NG/ML (<3.6); CPK CREATINE PHOSPHOKINASE 29 U/L (39-308); MB/CK RELATIVE INDEX 3.45 (< OR =4)
[2021-12-27 23:56] LABS: ERYTHROCYTE SEDIMENTATION RATE 60 mm/hr (0-20)
[2021-12-28] VITALS (26 sets, daily range): BP systolic 80–120; BP diastolic 40–70; O2SAT 90–96
[2021-12-28] MEDS ORDERED: TEST200I14 TOP (00:53)
[2021-12-28] MEDS ORDERED: HOME MED LIST COMPLETE! XX SCH (00:55)
[2021-12-28] MEDS ORDERED: VANCOMYCIN HCL 750 MG, VIAL MATE ADAPTER 1 EACH in NS 250 ML IV ONE (01:00)
[2021-12-28] MEDS ORDERED: VANCOMYCIN HCL 1,250 MG in NS 250 ML IV ONE (01:05)
[2021-12-28] MEDS ORDERED: MOM 30ML SUSPENSION UDC PO PRN (01:25)
[2021-12-28] MEDS ORDERED: MAALOX 30 ML SUSP *UDC PO PRN (01:25)
[2021-12-28] MEDS ORDERED: OMEPRAZOLE 20MG CAP PO PRN (01:30)
[2021-12-28] MEDS ORDERED: VANCOMYCIN HCL 500 MG in D5W MINI-BAG PLUS 100 ML IV ONE (02:00)
[2021-12-28] MEDS ORDERED: MORPHINE 2 MG/ML 1ML VIAL IV PRN (02:10)
[2021-12-28 03:43] LABS: HEMATOCRIT 33.5 % (42.0-52.0); MEAN CORPUSCULAR HEMOGLOBIN 30.5 pg (27.0-33.0); MEAN CORPUSCULAR HGB CONC 32.8 g/dl (32.0-36.5); MEAN CORPUSCULAR VOLUME 92.8 fl (80.0-96.0); PLATELET COUNT, AUTOMATED 255 10^3/uL (150-450); RED BLOOD COUNT 3.61 10^6/uL (4.30-6.10)
[2021-12-28 03:45] LABS: WHITE BLOOD COUNT 33.9 10^3/uL (4.0-10.0)
[2021-12-28 04:00] LABS: CK-MB VALUE MASS < 1.0 NG/ML (<3.6); CPK CREATINE PHOSPHOKINASE 28 U/L (39-308); MB/CK RELATIVE INDEX 3.57 (< OR =4)
[2021-12-28 04:02] LABS: ALBUMIN 2.5 GM/DL (3.2-5.2); BILIRUBIN,TOTAL 0.6 MG/DL (0.2-1.0); C REACTIVE PROTEIN QUANTITATIV 18.6 MG/DL (0.00-0.30); CALCIUM LEVEL 7.5 MG/DL (8.8-10.2); CREATININE FOR GFR 1.51 MG/DL (0.70-1.30); GLOMERULAR FILTRATION RATE 50.4 (>49); MAGNESIUM LEVEL 1.2 MG/DL (1.8-2.4); POTASSIUM SERUM 3.7 MEQ/L (3.5-5.1); TOTAL PROTEIN 5.7 GM/DL (6.4-8.2)
[2021-12-28 04:34] LABS: LYMPHOCYTES 2 % (16-44); MONOCYTES 6 % (0-5); NEUTROPHILS 82 % (28-66); PLATELET ESTIMATE NORMAL (NORMAL)
[2021-12-28] MEDS: MAG SULF 1GM/100ML (MAG RUN) 1 GM in IV 1 EA IV SCH ×2 (05:38→06:41)
[2021-12-28] MEDS: HEPARIN SOD (PORCINE) 5000UNITS/ML 1ML VIAL/SYRINGE SC SCH ×3 (05:41→21:30)
[2021-12-28] MEDS: NS 1,000 ML IV SCH ×2 (08:59→17:15)
[2021-12-28] MEDS: ACETAMINOPHEN TAB 650MG DOSE (2X325MG) PO PRN ×3 (09:00→21:30)
[2021-12-28] MEDS ORDERED: LACTATED RINGER'S 1000 ML IV ONE (13:55)
[2021-12-28] MEDS: guaiFENesin ER 600 MG TAB PO SCH ×2 (14:12→21:29)
[2021-12-28 14:20] LABS: BLOOD UREA NITROGEN 23 MG/DL (7-18); CALCIUM LEVEL 8.3 MG/DL (8.8-10.2); CARBON DIOXIDE LEVEL 27 MEQ/L (21-32); CHLORIDE LEVEL 106 MEQ/L (98-107); CREATININE FOR GFR 1.15 MG/DL (0.70-1.30); GLOMERULAR FILTRATION RATE > 60.0 (>49); GLUCOSE, FASTING 98 MG/DL (70-100); MAGNESIUM LEVEL 2.2 MG/DL (1.8-2.4); POTASSIUM SERUM 3.8 MEQ/L (3.5-5.1); SODIUM LEVEL 143 MEQ/L (136-145)
[2021-12-28] MEDS ORDERED: ISOVUE-370 76% 100ML VIAL As Ordered ONE (15:50)
[2021-12-28] MEDS: MORPHINE 2 MG/ML 1ML VIAL IV PRN (16:02)
[2021-12-28] MEDS: ATORVASTATIN 10 MG TAB PO SCH (21:29)
[2021-12-29] VITALS (16 sets, daily range): BP systolic 110–152; BP diastolic 66–78; O2SAT 92–96
[2021-12-29] MEDS ORDERED: IPRATROPIUM 0.5MG/ALBUTEROL 2.5MG INH SOL UD 3ML (DUONEB) NEB ONE (04:35)
[2021-12-29 05:23] LABS: HEMATOCRIT 31.6 % (42.0-52.0); MEAN CORPUSCULAR HEMOGLOBIN 29.6 pg (27.0-33.0); MEAN CORPUSCULAR HGB CONC 31.6 g/dl (32.0-36.5); MEAN CORPUSCULAR VOLUME 93.5 fl (80.0-96.0); PLATELET COUNT, AUTOMATED 187 10^3/uL (150-450); RED BLOOD COUNT 3.38 10^6/uL (4.30-6.10); WHITE BLOOD COUNT 17.6 10^3/uL (4.0-10.0)
[2021-12-29 06:01] LABS: ALBUMIN 2.2 GM/DL (3.2-5.2); ALT/SGPT 17 U/L (12-78); BILIRUBIN,TOTAL 0.4 MG/DL (0.2-1.0); BLOOD UREA NITROGEN 15 MG/DL (7-18); CALCIUM LEVEL 7.8 MG/DL (8.8-10.2); CARBON DIOXIDE LEVEL 23 MEQ/L (21-32); CHLORIDE LEVEL 114 MEQ/L (98-107); CREATININE FOR GFR 0.88 MG/DL (0.70-1.30); GLOMERULAR FILTRATION RATE > 60.0 (>49); GLUCOSE, FASTING 91 MG/DL (70-100); POTASSIUM SERUM 3.7 MEQ/L (3.5-5.1); SODIUM LEVEL 144 MEQ/L (136-145); TOTAL PROTEIN 5.3 GM/DL (6.4-8.2)
[2021-12-29] MEDS: HEPARIN SOD (PORCINE) 5000UNITS/ML 1ML VIAL/SYRINGE SC SCH (06:11)
[2021-12-29] MEDS: ACETAMINOPHEN TAB 650MG DOSE (2X325MG) PO PRN ×2 (06:12→13:42)
[2021-12-29] MEDS: MORPHINE 2 MG/ML 1ML VIAL IV PRN (06:46)
[2021-12-29] MEDS ORDERED: OMEPRAZOLE 20MG CAP PO PRN (07:15)
[2021-12-29] MEDS: guaiFENesin ER 600 MG TAB PO SCH ×2 (08:04→20:01)
[2021-12-29] MEDS ORDERED: ONDANSETRON 4MG/2ML VIAL IV ONE (10:00)
[2021-12-29] MEDS: PIPERACILLIN/TAZOBACTAM SOD 4.5 GM in D5W MINI-BAG PLUS 50 ML IV SCH ×3 (10:07→21:38)
[2021-12-29] MEDS: LACTOBACILLUS ACIDOPHILUS CAP (BACID) PO SCH (10:17)
[2021-12-29] MEDS ORDERED: NORCO, ANEXSIA 5/325MG TABLET (HYDROcodone/ACETAMINOPHEN) PO PRN (14:35)
[2021-12-29 16:08] LABS: MYCOPLASMA PNEUMONIAE IgG 339 U/mL (0-99); MYCOPLASMA PNEUMONIAE IgM <770 U/mL (0-769)
[2021-12-29] MEDS: ONDANSETRON 4MG/2ML VIAL IV PRN (19:58)
[2021-12-29] MEDS ORDERED: ACETAMINOPHEN TAB 650MG DOSE (2X325MG) PO PRN (20:00)
[2021-12-29] MEDS: ATORVASTATIN 10 MG TAB PO SCH (20:00)
[2021-12-30] VITALS: BP 128/72
[2021-12-30] MEDS: ONDANSETRON 4MG/2ML VIAL IV PRN ×3 (00:08→15:16)
[2021-12-30 04:00] VITALS: BP 139/87
[2021-12-30] MEDS: PIPERACILLIN/TAZOBACTAM SOD 4.5 GM in D5W MINI-BAG PLUS 50 ML IV SCH ×2 (04:14→09:09)
[2021-12-30 05:24] LABS: HEMATOCRIT 31.1 % (42.0-52.0); HEMOGLOBIN 9.8 g/dl (13.5-17.5); MEAN CORPUSCULAR HEMOGLOBIN 29.3 pg (27.0-33.0); MEAN CORPUSCULAR HGB CONC 31.5 g/dl (32.0-36.5); MEAN CORPUSCULAR VOLUME 92.8 fl (80.0-96.0); PLATELET COUNT, AUTOMATED 197 10^3/uL (150-450); RED BLOOD COUNT 3.35 10^6/uL (4.30-6.10); WHITE BLOOD COUNT 9.5 10^3/uL (4.0-10.0)
[2021-12-30 05:50] LABS: ALBUMIN 2.1 GM/DL (3.2-5.2); ALT/SGPT 20 U/L (12-78); BILIRUBIN,TOTAL 0.4 MG/DL (0.2-1.0); BLOOD UREA NITROGEN 12 MG/DL (7-18); CARBON DIOXIDE LEVEL 24 MEQ/L (21-32); CHLORIDE LEVEL 112 MEQ/L (98-107); CREATININE FOR GFR 0.88 MG/DL (0.70-1.30); GLOMERULAR FILTRATION RATE > 60.0 (>49); GLUCOSE, FASTING 82 MG/DL (70-100); MAGNESIUM LEVEL 1.9 MG/DL (1.8-2.4); POTASSIUM SERUM 3.6 MEQ/L (3.5-5.1); SODIUM LEVEL 144 MEQ/L (136-145); TOTAL PROTEIN 5.3 GM/DL (6.4-8.2)
[2021-12-30 07:49] VITALS: BP 147/66
[2021-12-30] MEDS ORDERED: KETOROLAC 30 MG/ML 1ML VIAL IV PRN (08:15)
[2021-12-30] MEDS: guaiFENesin ER 600 MG TAB PO SCH ×2 (08:38→21:42)
[2021-12-30] MEDS: LACTOBACILLUS ACIDOPHILUS CAP (BACID) PO SCH (08:38)
[2021-12-30] MEDS: ENOXAPARIN 40MG/0.4ML SYRINGE (J1650 PER 10MG) SC SCH (08:39)
[2021-12-30] MEDS: VITAMIN D 1,000 INTERNATIONAL UNITS TABLET PO SCH (09:09)
[2021-12-30] MEDS: MULTIVITAMINS/MINERALS THERAP 1 TAB PO SCH (09:09)
[2021-12-30] MEDS: ACETAMINOPHEN TAB 650MG DOSE (2X325MG) PO PRN (14:03)
[2021-12-30] MEDS: LevoFLOXacin 750 MG TABLET PO SCH (14:03)
[2021-12-30 17:12] VITALS: BP 146/86
[2021-12-30] MEDS ORDERED: METOCLOPRAMIDE INJ 10MG/2ML VIAL (J2765 PER 1) IV ONE (18:10)
[2021-12-30] MEDS ORDERED: NS 1,000 ML IV SCH (18:10)
[2021-12-30] MEDS: ATORVASTATIN 10 MG TAB PO SCH (21:42)
[2021-12-30] MEDS: LOSARTAN 25 MG TAB PO SCH (21:42)
[2021-12-30] MEDS: RAMELTEON 8 MG TAB (ROZEREM) PO SCH (21:42)
[2021-12-30 22:00] VITALS: BP 134/76
[2021-12-31] MEDS: ONDANSETRON 4MG/2ML VIAL IV PRN (03:04)
[2021-12-31] MEDS ORDERED: PROMETHAZINE 25MG/ML 1ML VIAL IV PRN (04:30)
[2021-12-31 05:00] VITALS: BP 130/76
[2021-12-31 05:58] LABS: HEMATOCRIT 30.8 % (42.0-52.0); HEMOGLOBIN 9.8 g/dl (13.5-17.5); MEAN CORPUSCULAR HEMOGLOBIN 29.5 pg (27.0-33.0); MEAN CORPUSCULAR HGB CONC 31.8 g/dl (32.0-36.5); MEAN CORPUSCULAR VOLUME 92.8 fl (80.0-96.0); PLATELET COUNT, AUTOMATED 213 10^3/uL (150-450); RED BLOOD COUNT 3.32 10^6/uL (4.30-6.10); WHITE BLOOD COUNT 10.4 10^3/uL (4.0-10.0)
[2021-12-31 06:25] LABS: ALT/SGPT 27 U/L (12-78); BILIRUBIN,TOTAL 0.3 MG/DL (0.2-1.0); BLOOD UREA NITROGEN 11 MG/DL (7-18); C REACTIVE PROTEIN QUANTITATIV 5.97 MG/DL (0.00-0.30); CALCIUM LEVEL 7.2 MG/DL (8.8-10.2); CARBON DIOXIDE LEVEL 23 MEQ/L (21-32); CHLORIDE LEVEL 113 MEQ/L (98-107); CREATININE FOR GFR 0.86 MG/DL (0.70-1.30); GLOMERULAR FILTRATION RATE > 60.0 (>49); GLUCOSE, FASTING 61 MG/DL (70-100); MAGNESIUM LEVEL 1.6 MG/DL (1.8-2.4); POTASSIUM SERUM 3.6 MEQ/L (3.5-5.1); SODIUM LEVEL 143 MEQ/L (136-145); TOTAL PROTEIN 5.1 GM/DL (6.4-8.2)
[2021-12-31] MEDS ORDERED: MAG SULF 1GM/100ML (MAG RUN) 1 GM in IV 1 EA IV ONE (08:00)
[2021-12-31] MEDS: VITAMIN D 1,000 INTERNATIONAL UNITS TABLET PO SCH (09:00)
[2021-12-31] MEDS: MULTIVITAMINS/MINERALS THERAP 1 TAB PO SCH (09:00)
[2021-12-31] MEDS: guaiFENesin ER 600 MG TAB PO SCH ×2 (09:00→20:29)
[2021-12-31] MEDS: LACTOBACILLUS ACIDOPHILUS CAP (BACID) PO SCH (09:00)
[2021-12-31] MEDS: ENOXAPARIN 40MG/0.4ML SYRINGE (J1650 PER 10MG) SC SCH (09:08)
[2021-12-31] MEDS: LevoFLOXacin 750 MG TABLET PO SCH (09:08)
[2021-12-31] MEDS: AZITHROMYCIN 250MG TABLET PO SCH (09:35)
[2021-12-31] MEDS: CEFDINIR 300 MG CAP (OMNICEF) PO SCH ×2 (09:35→20:29)
[2021-12-31] MEDS ORDERED: FUROSEMIDE 40MG/4ML VIAL (J1940) IV ONE (13:00)
[2021-12-31 14:00] VITALS: BP 129/76
[2021-12-31] MEDS: RAMELTEON 8 MG TAB (ROZEREM) PO SCH (20:29)
[2021-12-31] MEDS: ATORVASTATIN 10 MG TAB PO SCH (20:29)
[2021-12-31 20:30] VITALS: BP 140/78
[2021-12-31] MEDS: LOSARTAN 25 MG TAB PO SCH (20:30)
[2021-12-31 22:00] VITALS: BP 134/78
[2022-01-01] MEDS: ACETAMINOPHEN TAB 650MG DOSE (2X325MG) PO PRN (01:56)
[2022-01-01 06:00] VITALS: BP 117/81
[2022-01-01 06:20] LABS: HEMATOCRIT 31.2 % (42.0-52.0); HEMOGLOBIN 10.3 g/dl (13.5-17.5); MEAN CORPUSCULAR HEMOGLOBIN 29.7 pg (27.0-33.0); MEAN CORPUSCULAR VOLUME 89.9 fl (80.0-96.0); PLATELET COUNT, AUTOMATED 242 10^3/uL (150-450); RED BLOOD COUNT 3.47 10^6/uL (4.30-6.10); WHITE BLOOD COUNT 8.1 10^3/uL (4.0-10.0)
[2022-01-01 06:38] LABS: ALBUMIN 2.2 GM/DL (3.2-5.2); ALT/SGPT 28 U/L (12-78); BILIRUBIN,TOTAL 0.3 MG/DL (0.2-1.0); BLOOD UREA NITROGEN 10 MG/DL (7-18); C REACTIVE PROTEIN QUANTITATIV 6.83 MG/DL (0.00-0.30); CALCIUM LEVEL 8.4 MG/DL (8.8-10.2); CARBON DIOXIDE LEVEL 30 MEQ/L (21-32); CHLORIDE LEVEL 110 MEQ/L (98-107); CREATININE FOR GFR 0.94 MG/DL (0.70-1.30); GLOMERULAR FILTRATION RATE > 60.0 (>49); GLUCOSE, FASTING 101 MG/DL (70-100); MAGNESIUM LEVEL 1.8 MG/DL (1.8-2.4); POTASSIUM SERUM 3.4 MEQ/L (3.5-5.1); SODIUM LEVEL 144 MEQ/L (136-145); TOTAL PROTEIN 5.4 GM/DL (6.4-8.2)
[2022-01-01] MEDS ORDERED: POTASSIUM CHLORIDE 10MEQ SR TABLET PO ONE (09:00)
[2022-01-01] MEDS ORDERED: AZIT-12 PO (09:26)
[2022-01-01] MEDS ORDERED: RISATAB3 PO (09:26)
[2022-01-01] MEDS ORDERED: CEFD300CAP PO (09:26)
[2022-01-01] MEDS ORDERED: MUCI600T31 PO (09:26)
[2022-01-01] MEDS: AZITHROMYCIN 250MG TABLET PO SCH (09:59)
[2022-01-01] MEDS: ENOXAPARIN 40MG/0.4ML SYRINGE (J1650 PER 10MG) SC SCH (09:59)
[2022-01-01] MEDS: CEFDINIR 300 MG CAP (OMNICEF) PO SCH (10:00)
[2022-01-01] MEDS: LACTOBACILLUS ACIDOPHILUS CAP (BACID) PO SCH (10:00)
[2022-01-01] MEDS: VITAMIN D 1,000 INTERNATIONAL UNITS TABLET PO SCH (10:00)
[2022-01-01] MEDS: guaiFENesin ER 600 MG TAB PO SCH (10:00)
[2022-01-01] MEDS: MULTIVITAMINS/MINERALS THERAP 1 TAB PO SCH (10:00)
[2022-01-03 16:10] LABS: BODY FLUID CULTURE Not indicated. (.); ORGANISM ID Not indicated. (.); SPECIMEN SOURCE Urine (.); URINE STREP PNEUMONIAE ANTIGEN Negative (Negative)
== END 2022-01-01 13:10 | disposition home or self-care (01) | DRG 720 ==
LOC: M ED 20:21 → M ED INP 12-28 01:24 → M PCU 12-28 03:40 → M MSPAV 12-30 17:06
PROVIDERS: ADMIT Family Medicine; ATTEND Internal Medicine Nephrology
PROC: BW24YZZ Computerized Tomography (CT Scan) of Chest and Abdomen using Other Contrast (ICD-10-PCS; principal; 2021-12-28)
DX: A41.9 Sepsis, unspecified organism (principal); J69.0 Pneumonitis due to inhalation of food and vomit; E87.2 Acidosis; N17.9 Acute kidney failure, unspecified; K50.90 Crohn's disease, unspecified, without complications; I10 Essential (primary) hypertension; K21.9 Gastro-esophageal reflux disease without esophagitis; E78.5 Hyperlipidemia, unspecified; E55.9 Vitamin D deficiency, unspecified; E53.8 Deficiency of other specified B group vitamins; Z20.822 Contact with and (suspected) exposure to COVID-19; Z79.899 Other long term (current) drug therapy; Z88.2 Allergy status to sulfonamides; R06.00 Dyspnea, unspecified; Z90.49 Acquired absence of other specified parts of digestive tract; R19.7 Diarrhea, unspecified; K44.9 Diaphragmatic hernia without obstruction or gangrene; R65.20 Severe sepsis without septic shock; I95.9 Hypotension, unspecified

== ENCOUNTER → 2022-01-18 | Outpatient (CLI) | payer OTHER ==
[~2022-01-18] MED LIST changes: +AZIT-12 PO; +CEFD300CAP PO; +MUCI600T31 PO; +RISATAB3 PO; +TEST200I14 TOP
== END ==
LOC: M PLAIMG 15:51 → M PLALAB 15:51
PROVIDERS: ATTEND Family Medicine
DX: J18.9 Pneumonia, unspecified organism (principal)

== ENCOUNTER → 2022-06-22 | Outpatient (CLI) | payer OTHER ==
[2022-06-22 10:08] LABS: HEMATOCRIT 40.9 % (42.0-52.0); HEMOGLOBIN 12.6 g/dl (13.5-17.5); MEAN CORPUSCULAR HEMOGLOBIN 29.2 pg (27.0-33.0); MEAN CORPUSCULAR HGB CONC 30.8 g/dl (32.0-36.5); MEAN CORPUSCULAR VOLUME 94.9 fl (80.0-96.0); PLATELET COUNT, AUTOMATED 220 10^3/uL (150-450); RED BLOOD COUNT 4.31 10^6/uL (4.30-6.10); WHITE BLOOD COUNT 6.7 10^3/uL (4.0-10.0)
[2022-06-22 10:57] LABS: ERYTHROCYTE SEDIMENTATION RATE 17 mm/hr (0-20)
[2022-06-22 11:55] LABS: ALBUMIN 3.2 G/DL (3.2-5.2); ALKALINE PHOSPHATASE 103 U/L (46-116); ALT/SGPT 19 U/L (7.0-40); AST/SGOT 23 U/L (<34); BILIRUBIN,TOTAL 0.5 MG/DL (0.3-1.2); BLOOD UREA NITROGEN 20 MG/DL (9-23); CALCIUM LEVEL 8.4 MG/DL (8.3-10.6); CARBON DIOXIDE LEVEL 30 MMOL/L (20-31); CHLORIDE LEVEL 106 MMOL/L (98-107); CREATININE FOR GFR 1.03 MG/DL (0.70-1.30); GLOMERULAR FILTRATION RATE > 60.0 (>49); GLUCOSE, FASTING 79 MG/DL (74-106); POTASSIUM SERUM 4.3 MMOL/L (3.5-5.1); SODIUM LEVEL 142 MMOL/L (136-145); TOTAL PROTEIN 6.6 G/DL (5.7-8.2)
[2022-06-22 11:56] LABS: VITAMIN B12 LEVEL 673 PG/ML (211-911)
[2022-06-22 13:36] LABS: C REACTIVE PROTEIN QUANTITATIV < 0.40 MG/DL (<1.0)
== END ==
LOC: M LAB 08:30
PROVIDERS: ATTEND Internal Medicine Gastroenterology
DX: K21.9 Gastro-esophageal reflux disease without esophagitis (principal); K59.00 Constipation, unspecified; K50.90 Crohn's disease, unspecified, without complications

== ENCOUNTER → 2022-06-22 | Outpatient (CLI) | payer OTHER ==
[2022-06-22 10:08] LABS: HEMATOCRIT 40.3 % (42.0-52.0); HEMOGLOBIN 12.7 g/dl (13.5-17.5); MEAN CORPUSCULAR HEMOGLOBIN 29.5 pg (27.0-33.0); MEAN CORPUSCULAR HGB CONC 31.5 g/dl (32.0-36.5); MEAN CORPUSCULAR VOLUME 93.7 fl (80.0-96.0); PLATELET COUNT, AUTOMATED 230 10^3/uL (150-450); WHITE BLOOD COUNT 6.8 10^3/uL (4.0-10.0)
[2022-06-22 10:35] LABS: HEMOGLOBIN A1c 4.8 % (4.0-6.0)
[2022-06-22 11:49] LABS: PROSTATIC SPECIFIC AG MONITOR 0.42 NG/ML (< 4.00)
[2022-06-22 11:54] LABS: TOTAL 25(OH) VITAMIN D 37.7 NG/ML (20.0-100.0)
[2022-06-22 11:55] LABS: TESTOSTERONE 721 NG/DL (241-827)
[2022-06-22 11:58] LABS: ALBUMIN 3.2 G/DL (3.2-5.2); ALKALINE PHOSPHATASE 103 U/L (46-116); ALT/SGPT 20 U/L (7.0-40); AST/SGOT 24 U/L (<34); BILIRUBIN,TOTAL 0.4 MG/DL (0.3-1.2); BLOOD UREA NITROGEN 20 MG/DL (9-23); CALCIUM LEVEL 8.4 MG/DL (8.3-10.6); CARBON DIOXIDE LEVEL 29 MMOL/L (20-31); CHLORIDE LEVEL 107 MMOL/L (98-107); CHOLESTEROL LEVEL 117 MG/DL (<200); CREATININE FOR GFR 1.03 MG/DL (0.70-1.30); GLOMERULAR FILTRATION RATE > 60.0 (>49); GLUCOSE, FASTING 77 MG/DL (74-106); HDL CHOLESTEROL 58.4 MG/DL (>40); NON-HDL-C 59 MG/DL; POTASSIUM SERUM 4.4 MMOL/L (3.5-5.1); SODIUM LEVEL 142 MMOL/L (136-145); TOTAL PROTEIN 6.7 G/DL (5.7-8.2); TRIGLYCERIDES LEVEL 53 MG/DL (<150)
== END ==
LOC: M LAB 08:24
PROVIDERS: ATTEND Family Medicine
DX: D64.9 Anemia, unspecified (principal); R53.83 Other fatigue; E03.9 Hypothyroidism, unspecified

== ENCOUNTER → 2022-06-22 | Outpatient (CLI) | payer OTHER ==
[2022-06-22 11:16] LABS: ALBUMIN 3.2 G/DL (3.2-5.2); ALKALINE PHOSPHATASE 103 U/L (46-116); ALT/SGPT 20 U/L (7.0-40); AST/SGOT 24 U/L (<34); BILIRUBIN,TOTAL 0.4 MG/DL (0.3-1.2); BLOOD UREA NITROGEN 20 MG/DL (9-23); CALCIUM LEVEL 8.4 MG/DL (8.3-10.6); CARBON DIOXIDE LEVEL 30 MMOL/L (20-31); CHLORIDE LEVEL 106 MMOL/L (98-107); CHOLESTEROL LEVEL 117 MG/DL (<200); CHOLESTEROL RISK RATIO 2.03 (<5); CREATININE FOR GFR 1.04 MG/DL (0.70-1.30); GLOMERULAR FILTRATION RATE > 60.0 (>49); GLUCOSE, FASTING 83 MG/DL (74-106); HDL CHOLESTEROL 57.6 MG/DL (>40); LDL CHOLESTEROL 47.6 MG/DL (<100); NON-HDL-C 59 MG/DL; POTASSIUM SERUM 4.4 MMOL/L (3.5-5.1); SODIUM LEVEL 143 MMOL/L (136-145); TOTAL PROTEIN 6.6 G/DL (5.7-8.2); TRIGLYCERIDES LEVEL 59 MG/DL (<150)
== END ==
LOC: M LAB 08:35
PROVIDERS: ATTEND Physician Assistant
DX: E78.00 Pure hypercholesterolemia, unspecified (principal); I42.8 Other cardiomyopathies

== ENCOUNTER → 2022-06-23 | Outpatient (REF) | payer OTHER | LOC: M SFHCDERM 14:57 | PROVIDERS: ATTEND Nurse Practitioner Family | DX: D48.5 Neoplasm of uncertain behavior of skin (principal); L82.0 Inflamed seborrheic keratosis ==

== ENCOUNTER → 2022-08-24 | Outpatient (CLI) | payer OTHER | LOC: M WUC 13:54 | PROVIDERS: ATTEND Family Medicine | DX: J44.9 Chronic obstructive pulmonary disease, unspecified (principal) ==

== ENCOUNTER → 2022-11-03 | Outpatient (CLI) | payer OTHER ==
[2022-11-03 18:27] LABS: HEMATOCRIT 38.6 % (42.0-52.0); HEMOGLOBIN 12.4 g/dl (13.5-17.5); MEAN CORPUSCULAR HGB CONC 32.1 g/dl (32.0-36.5); MEAN CORPUSCULAR VOLUME 93.5 fl (80.0-96.0); PLATELET COUNT, AUTOMATED 269 10^3/uL (150-450); RED BLOOD COUNT 4.13 10^6/uL (4.30-6.10)
[2022-11-03 18:55] LABS: ALBUMIN 3.2 G/DL (3.2-5.2); ALKALINE PHOSPHATASE 99 U/L (46-116); ALT/SGPT 16 U/L (7.0-40); AST/SGOT 19 U/L (<34); BILIRUBIN,TOTAL 0.4 MG/DL (0.3-1.2); BLOOD UREA NITROGEN 20 MG/DL (9-23); CALCIUM LEVEL 8.9 MG/DL (8.3-10.6); CARBON DIOXIDE LEVEL 30 MMOL/L (20-31); CHLORIDE LEVEL 103 MMOL/L (98-107); CREATININE FOR GFR 0.99 MG/DL (0.70-1.30); GLOMERULAR FILTRATION RATE > 60.0 (>49); GLUCOSE, FASTING 105 MG/DL (74-106); POTASSIUM SERUM 4.3 MMOL/L (3.5-5.1); PROSTATIC SPECIFIC AG MONITOR 0.44 NG/ML (< 4.00); SODIUM LEVEL 140 MMOL/L (136-145); TOTAL PROTEIN 6.5 G/DL (5.7-8.2)
[2022-11-03 18:57] LABS: THYROID STIMULATING HORMONE 1.016 uIU/ML (0.55-4.78)
[2022-11-03 18:58] LABS: TESTOSTERONE 449 NG/DL (241-827)
== END ==
LOC: M WUC 14:44
PROVIDERS: ATTEND Family Medicine
DX: D64.9 Anemia, unspecified (principal); R53.83 Other fatigue; E03.9 Hypothyroidism, unspecified

== ENCOUNTER → 2022-12-02 | Outpatient (CLI) | payer OTHER ==
[2022-12-02 17:43] LABS: ALBUMIN 3.3 G/DL (3.2-5.2); ALKALINE PHOSPHATASE 98 U/L (46-116); ALT/SGPT 25 U/L (7.0-40); AST/SGOT 21 U/L (<34); BILIRUBIN,TOTAL 0.5 MG/DL (0.3-1.2); BLOOD UREA NITROGEN 19 MG/DL (9-23); CALCIUM LEVEL 8.3 MG/DL (8.3-10.6); CARBON DIOXIDE LEVEL 31 MMOL/L (20-31); CHLORIDE LEVEL 107 MMOL/L (98-107); CREATININE FOR GFR 1.05 MG/DL (0.70-1.30); GLOMERULAR FILTRATION RATE > 60.0 (>49); GLUCOSE, FASTING 77 MG/DL (74-106); POTASSIUM SERUM 4.1 MMOL/L (3.5-5.1); SODIUM LEVEL 141 MMOL/L (136-145); TOTAL PROTEIN 6.2 G/DL (5.7-8.2)
== END ==
LOC: M WUC 10:43
PROVIDERS: ATTEND Family Medicine
DX: R10.31 Right lower quadrant pain (principal); K50.90 Crohn's disease, unspecified, without complications; K59.00 Constipation, unspecified; K82.4 Cholesterolosis of gallbladder; K44.9 Diaphragmatic hernia without obstruction or gangrene; K21.9 Gastro-esophageal reflux disease without esophagitis

== ENCOUNTER → 2022-12-02 | Outpatient (CLI) | payer OTHER ==
[2022-12-02 17:44] LABS: BLOOD UREA NITROGEN 19 MG/DL (9-23); CALCIUM LEVEL 8.3 MG/DL (8.3-10.6); CARBON DIOXIDE LEVEL 31 MMOL/L (20-31); CHLORIDE LEVEL 108 MMOL/L (98-107); CREATININE FOR GFR 1.06 MG/DL (0.70-1.30); GLOMERULAR FILTRATION RATE > 60.0 (>49); GLUCOSE, FASTING 76 MG/DL (74-106); POTASSIUM SERUM 4.1 MMOL/L (3.5-5.1); SODIUM LEVEL 140 MMOL/L (136-145)
== END ==
LOC: M WUC 10:47
PROVIDERS: ATTEND Physician Assistant
DX: I42.8 Other cardiomyopathies (principal)

== ENCOUNTER → 2022-12-27 | Outpatient (CLI) | payer OTHER ==
[~2022-12-27] MED LIST changes: +GLUCAGON INJ 1MG VIAL As Ordered ONE; +ISOVUE-370 76% 100ML VIAL As Ordered ONE; +NEULUMEX 0.1% SUSPENSION 450ML BOTTLE (FORMERLY VOLUMEN) As Ordered ONE
== END ==
LOC: M RAD 09:32
PROVIDERS: ATTEND Internal Medicine Gastroenterology
DX: K50.912 Crohn's disease, unspecified, with intestinal obstruction (principal); R10.31 Right lower quadrant pain; R63.4 Abnormal weight loss; Z98.0 Intestinal bypass and anastomosis status; K86.2 Cyst of pancreas; N28.1 Cyst of kidney, acquired; K42.9 Umbilical hernia without obstruction or gangrene
CPT/HCPCS: 74177; J1610; Q9967

== ENCOUNTER → 2023-03-03 | Outpatient (CLI) | payer OTHER ==
[~2023-03-03] MED LIST changes: -GLUCAGON INJ 1MG VIAL As Ordered ONE; -ISOVUE-370 76% 100ML VIAL As Ordered ONE; -NEULUMEX 0.1% SUSPENSION 450ML BOTTLE (FORMERLY VOLUMEN) As Ordered ONE
[2023-03-03 18:20] LABS: ALBUMIN 3.4 G/DL (3.2-5.2); ALKALINE PHOSPHATASE 101 U/L (46-116); ALT/SGPT 18 U/L (7.0-40); AST/SGOT 12 U/L (<34); BILIRUBIN,TOTAL 0.7 MG/DL (0.3-1.2); BLOOD UREA NITROGEN 27 MG/DL (9-23); CALCIUM LEVEL 9.4 MG/DL (8.3-10.6); CARBON DIOXIDE LEVEL 26 MMOL/L (20-31); CHLORIDE LEVEL 102 MMOL/L (98-107); CREATININE FOR GFR 1.13 MG/DL (0.70-1.30); GLOMERULAR FILTRATION RATE > 60.0 (>49); GLUCOSE, FASTING 117 MG/DL (74-106); POTASSIUM SERUM 4.5 MMOL/L (3.5-5.1); SODIUM LEVEL 137 MMOL/L (136-145); TOTAL PROTEIN 7.3 G/DL (5.7-8.2)
== END ==
LOC: M RAD 16:22
PROVIDERS: ATTEND Internal Medicine Gastroenterology
DX: K50.90 Crohn's disease, unspecified, without complications (principal); R10.31 Right lower quadrant pain; R63.4 Abnormal weight loss; R94.5 Abnormal results of liver function studies

== ENCOUNTER → 2023-04-13 | Outpatient (CLI) | payer OTHER | LOC: M PLAIMG 10:57 | PROVIDERS: ATTEND Family Medicine | DX: Z87.09 Personal history of other diseases of the respiratory system (principal) ==

== ENCOUNTER → 2023-05-18 | Outpatient (REF) | payer OTHER | LOC: M LAB REF 16:45 | PROVIDERS: ATTEND Internal Medicine Gastroenterology | DX: R10.31 Right lower quadrant pain (principal); K50.90 Crohn's disease, unspecified, without complications ==

== ENCOUNTER → 2023-09-19 | Outpatient (CLI) | payer OTHER ==
[~2023-09-19] MED LIST changes: +AMOX875T2 PO; +COLO400C PO; +TEST200I14 SC; -TEST200I14 TOP
[2023-09-19 20:49] LABS: HEMATOCRIT 39.9 % (42.0-52.0); HEMOGLOBIN 12.7 g/dl (13.5-17.5); MEAN CORPUSCULAR HEMOGLOBIN 31.2 pg (27.0-33.0); MEAN CORPUSCULAR HGB CONC 31.8 g/dl (32.0-36.5); PLATELET COUNT, AUTOMATED 314 10^3/uL (150-450); RED BLOOD COUNT 4.07 10^6/uL (4.30-6.10); WHITE BLOOD COUNT 14.5 10^3/uL (4.0-10.0)
[2023-09-19 20:50] LABS: C REACTIVE PROTEIN QUANTITATIV < 0.40 MG/DL (<1.0)
[2023-09-19 20:52] LABS: ALBUMIN 3.2 G/DL (3.2-5.2); ALKALINE PHOSPHATASE 77 U/L (46-116); ALT/SGPT 14 U/L (7.0-40); AST/SGOT 9 U/L (<34); BILIRUBIN,TOTAL 0.4 MG/DL (0.3-1.2); BLOOD UREA NITROGEN 24 MG/DL (9-23); CALCIUM LEVEL 8.5 MG/DL (8.3-10.6); CARBON DIOXIDE LEVEL 28 MMOL/L (20-31); CHLORIDE LEVEL 107 MMOL/L (98-107); CREATININE FOR GFR 1.04 MG/DL (0.70-1.30); GLOMERULAR FILTRATION RATE > 60.0 (>49); GLUCOSE, FASTING 108 MG/DL (74-106); IRON (FE) 68 UG/DL (65-175); PERCENT SATURATION 19.5 % (19.7-50.0); POTASSIUM SERUM 4.8 MMOL/L (3.5-5.1); SODIUM LEVEL 137 MMOL/L (136-145); TOTAL IRON BINDING CAPACITY 349 UG/DL (250-425); TOTAL PROTEIN 6.1 G/DL (5.7-8.2)
[2023-09-19 20:53] LABS: FERRITIN 45.5 NG/ML (10.5-307.3); VITAMIN B12 LEVEL 1241 PG/ML (211-911)
[2023-09-19 20:59] LABS: ERYTHROCYTE SEDIMENTATION RATE 26 mm/hr (0-20)
== END ==
LOC: M WUC 15:13
PROVIDERS: ATTEND Internal Medicine Gastroenterology
DX: K50.90 Crohn's disease, unspecified, without complications (principal); R63.4 Abnormal weight loss; K59.00 Constipation, unspecified; K56.699 Other intestinal obstruction unspecified as to partial versus complete obstruction; E55.9 Vitamin D deficiency, unspecified

== ENCOUNTER → 2023-09-28 | Outpatient (CLI) | payer OTHER | LOC: M PLAIMG 07:36 | PROVIDERS: ATTEND Physician Assistant | DX: I77.810 Thoracic aortic ectasia (principal); I42.8 Other cardiomyopathies ==

== ENCOUNTER 2023-10-11 16:21 | Emergency (ER) | payer OTHER ==
[~2023-10-11] VITALS: Ht 177.8 cm; Wt 69.3 kg
[2023-10-11 17:35] LABS: BASO % 0.2 % (0.0-1.0); HEMATOCRIT 32.7 % (42.0-52.0); HEMOGLOBIN 10.7 g/dl (13.5-17.5); LYMPH # 0.5 10^3/uL (1.5-5.0); LYMPH % 3.9 % (24.0-44.0); MEAN CORPUSCULAR HEMOGLOBIN 30.9 pg (27.0-33.0); MEAN CORPUSCULAR HGB CONC 32.7 g/dl (32.0-36.5); MEAN CORPUSCULAR VOLUME 94.5 fl (80.0-96.0); MONO # 0.4 10^3/uL (0.0-0.8); MONO % 3.2 % (2.0-8.0); NEUTROPHILS # 11.6 10^3/uL (1.5-8.5); NEUTROPHILS % 91.8 % (36.0-66.0); PLATELET COUNT, AUTOMATED 264 10^3/uL (150-450); RED BLOOD COUNT 3.46 10^6/uL (4.30-6.10); WHITE BLOOD COUNT 12.7 10^3/uL (4.0-10.0)
[2023-10-11 17:47] LABS: INR 0.99; PARTIAL THROMBOPLASTIN TIME 23.3 SECONDS (24.8-34.2); PROTHROMBIN TIME 12.8 SECONDS (12.5-14.5)
[2023-10-11 17:52] LABS: BLOOD UREA NITROGEN 21 MG/DL (9-23); CALCIUM LEVEL 8.8 MG/DL (8.3-10.6); CARBON DIOXIDE LEVEL 30 MMOL/L (20-31); CHLORIDE LEVEL 105 MMOL/L (98-107); CK-MB VALUE MASS < 1.0 NG/ML (<3.6); CPK CREATINE PHOSPHOKINASE 129 U/L (46-171); CREATININE FOR GFR 0.89 MG/DL (0.70-1.30); GLOMERULAR FILTRATION RATE > 60.0 (>49); GLUCOSE, FASTING 124 MG/DL (74-106); MB/CK RELATIVE INDEX 0.77 (< OR =4); SODIUM LEVEL 139 MMOL/L (136-145)
[2023-10-11 20:23] LABS: CK-MB VALUE MASS < 1.0 NG/ML (<3.6)
[2023-10-11 20:27] LABS: CPK CREATINE PHOSPHOKINASE 129 U/L (46-171); MB/CK RELATIVE INDEX 0.77 (< OR =4)
[2023-10-11 21:00] VITALS: BP 151/76; TEMP 98
[2023-10-11] MEDS ORDERED: ISOVUE-370 76% 100ML VIAL As Ordered ONE (21:04)
[2023-10-11] MEDS ORDERED: LASI20TA3 PO (22:18)
[2023-10-11 22:51] VITALS: O2SAT 97
== END 2023-10-11 23:08 | disposition home or self-care (01) ==
LOC: M ED 16:21
DX: J90 Pleural effusion, not elsewhere classified (principal); R06.01 Orthopnea; I10 Essential (primary) hypertension; E78.5 Hyperlipidemia, unspecified; K21.9 Gastro-esophageal reflux disease without esophagitis; K50.90 Crohn's disease, unspecified, without complications; E55.9 Vitamin D deficiency, unspecified; E53.8 Deficiency of other specified B group vitamins; Z87.891 Personal history of nicotine dependence; Z79.899 Other long term (current) drug therapy; Z88.2 Allergy status to sulfonamides
CPT/HCPCS: 71046; 71275; 74177; 80048; 82550; 82553; 84484; 85025; 85610; 85730; 87486; 87581; 87633; 87798; 93005; 99284; Q9967

== ENCOUNTER → 2023-12-05 | Outpatient (CLI) | payer OTHER ==
[~2023-12-05] MED LIST changes: +LASI20TA3 PO
[2023-12-05 19:58] LABS: HEMATOCRIT 33.4 % (42.0-52.0); HEMOGLOBIN 10.8 g/dl (13.5-17.5); MEAN CORPUSCULAR HEMOGLOBIN 30.1 pg (27.0-33.0); MEAN CORPUSCULAR HGB CONC 32.3 g/dl (32.0-36.5); PLATELET COUNT, AUTOMATED 312 10^3/uL (150-450); RED BLOOD COUNT 3.59 10^6/uL (4.30-6.10); WHITE BLOOD COUNT 5.8 10^3/uL (4.0-10.0)
[2023-12-05 20:19] LABS: ERYTHROCYTE SEDIMENTATION RATE 34 mm/hr (0-20)
[2023-12-05 20:28] LABS: C REACTIVE PROTEIN QUANTITATIV < 0.40 MG/DL (<1.0); TOTAL IRON BINDING CAPACITY 360 UG/DL (250-425)
[2023-12-05 20:29] LABS: ALBUMIN 3.1 G/DL (3.2-5.2); ALKALINE PHOSPHATASE 78 U/L (46-116); ALT/SGPT 16 U/L (7.0-40); AST/SGOT 16 U/L (<34); BILIRUBIN,TOTAL 0.4 MG/DL (0.3-1.2); BLOOD UREA NITROGEN 18 MG/DL (9-23); CALCIUM LEVEL 8.3 MG/DL (8.3-10.6); CARBON DIOXIDE LEVEL 30 MMOL/L (20-31); CHLORIDE LEVEL 111 MMOL/L (98-107); CREATININE FOR GFR 0.96 MG/DL (0.70-1.30); GLOMERULAR FILTRATION RATE > 60.0 (>49); GLUCOSE, FASTING 91 MG/DL (74-106); IRON (FE) 60 UG/DL (65-175); MAGNESIUM LEVEL 1.4 MG/DL (1.8-2.4); PERCENT SATURATION 16.7 % (19.7-50.0); POTASSIUM SERUM 3.5 MMOL/L (3.5-5.1); SODIUM LEVEL 144 MMOL/L (136-145); TOTAL PROTEIN 5.9 G/DL (5.7-8.2)
[2023-12-05 20:31] LABS: FERRITIN 17.3 NG/ML (10.5-307.3)
== END ==
LOC: M WUC 15:27
PROVIDERS: ATTEND Internal Medicine Gastroenterology
DX: K50.90 Crohn's disease, unspecified, without complications (principal); E56.9 Vitamin deficiency, unspecified; R19.7 Diarrhea, unspecified

== ENCOUNTER → 2024-02-02 | Outpatient (CLI) | payer OTHER ==
[2024-02-02 14:22] LABS: HEMOGLOBIN 12.9 g/dl (13.5-17.5); MEAN CORPUSCULAR HEMOGLOBIN 29.5 pg (27.0-33.0); MEAN CORPUSCULAR HGB CONC 32.3 g/dl (32.0-36.5); MEAN CORPUSCULAR VOLUME 91.5 fl (80.0-96.0); PLATELET COUNT, AUTOMATED 213 10^3/uL (150-450); RED BLOOD COUNT 4.37 10^6/uL (4.30-6.10); WHITE BLOOD COUNT 5.6 10^3/uL (4.0-10.0)
[2024-02-02 14:32] LABS: HEMOGLOBIN A1c 4.9 % (4.0-6.0)
[2024-02-02 14:51] LABS: PROSTATIC SPECIFIC AG MONITOR 0.45 NG/ML (< 4.00)
[2024-02-02 14:55] LABS: THYROID STIMULATING HORMONE 1.191 uIU/ML (0.55-4.78)
[2024-02-02 14:56] LABS: ALBUMIN 3.6 G/DL (3.2-5.2); ALKALINE PHOSPHATASE 96 U/L (46-116); ALT/SGPT 20 U/L (7.0-40); AST/SGOT 17 U/L (<34); BILIRUBIN,TOTAL 0.5 MG/DL (0.3-1.2); BLOOD UREA NITROGEN 21 MG/DL (9-23); CARBON DIOXIDE LEVEL 29 MMOL/L (20-31); CHLORIDE LEVEL 108 MMOL/L (98-107); CHOLESTEROL LEVEL 135 MG/DL (<200); CHOLESTEROL RISK RATIO 2.88 (<5); CREATININE FOR GFR 1.11 MG/DL (0.70-1.30); GLOMERULAR FILTRATION RATE > 60.0 (>49); GLUCOSE, FASTING 90 MG/DL (74-106); HDL CHOLESTEROL 46.8 MG/DL (>40); IRON (FE) 106 UG/DL (65-175); LDL CHOLESTEROL 45.2 MG/DL (<100); NON-HDL-C 88.2 MG/DL; POTASSIUM SERUM 4.3 MMOL/L (3.5-5.1); SODIUM LEVEL 142 MMOL/L (136-145); TOTAL IRON BINDING CAPACITY 379 UG/DL (250-425); TOTAL PROTEIN 6.2 G/DL (5.7-8.2); TRIGLYCERIDES LEVEL 215 MG/DL (<150)
[2024-02-02 14:57] LABS: TESTOSTERONE 784 NG/DL (241-827)
== END ==
LOC: M WUC 10:23
PROVIDERS: ATTEND Family Medicine
DX: I10 Essential (primary) hypertension (principal); E03.9 Hypothyroidism, unspecified; R53.83 Other fatigue

== ENCOUNTER → 2024-02-02 | Outpatient (CLI) | payer OTHER ==
[2024-02-02 14:21] LABS: HEMATOCRIT 39.4 % (42.0-52.0); HEMOGLOBIN 12.7 g/dl (13.5-17.5); MEAN CORPUSCULAR HEMOGLOBIN 29.7 pg (27.0-33.0); MEAN CORPUSCULAR HGB CONC 32.2 g/dl (32.0-36.5); MEAN CORPUSCULAR VOLUME 92.3 fl (80.0-96.0); PLATELET COUNT, AUTOMATED 218 10^3/uL (150-450); RED BLOOD COUNT 4.27 10^6/uL (4.30-6.10); WHITE BLOOD COUNT 5.7 10^3/uL (4.0-10.0)
[2024-02-02 14:27] LABS: ERYTHROCYTE SEDIMENTATION RATE 11 mm/hr (0-20)
[2024-02-02 14:49] LABS: C REACTIVE PROTEIN QUANTITATIV < 0.40 MG/DL (<1.0)
[2024-02-02 14:50] LABS: IRON (FE) 107 UG/DL (65-175)
[2024-02-02 14:51] LABS: ALBUMIN 3.7 G/DL (3.2-5.2); ALKALINE PHOSPHATASE 96 U/L (46-116); ALT/SGPT 22 U/L (7.0-40); AST/SGOT 20 U/L (<34); BILIRUBIN,TOTAL 0.5 MG/DL (0.3-1.2); BLOOD UREA NITROGEN 21 MG/DL (9-23); CALCIUM LEVEL 8.7 MG/DL (8.3-10.6); CARBON DIOXIDE LEVEL 28 MMOL/L (20-31); CHLORIDE LEVEL 107 MMOL/L (98-107); CREATININE FOR GFR 1.11 MG/DL (0.70-1.30); GLOMERULAR FILTRATION RATE > 60.0 (>49); GLUCOSE, FASTING 88 MG/DL (74-106); MAGNESIUM LEVEL 1.6 MG/DL (1.8-2.4); PERCENT SATURATION 27.9 % (19.7-50.0); POTASSIUM SERUM 4.2 MMOL/L (3.5-5.1); SODIUM LEVEL 141 MMOL/L (136-145); TOTAL IRON BINDING CAPACITY 384 UG/DL (250-425); TOTAL PROTEIN 6.2 G/DL (5.7-8.2)
[2024-02-02 14:52] LABS: FERRITIN 18.5 NG/ML (10.5-307.3)
== END ==
LOC: M WUC 10:25
PROVIDERS: ATTEND Internal Medicine Gastroenterology
DX: K50.90 Crohn's disease, unspecified, without complications (principal); K82.4 Cholesterolosis of gallbladder; D64.9 Anemia, unspecified; K44.9 Diaphragmatic hernia without obstruction or gangrene

== ENCOUNTER → 2024-07-05 | Outpatient (REF) | payer OTHER | LOC: M LABWUC 16:16 | PROVIDERS: ATTEND Family Medicine | DX: D64.9 Anemia, unspecified (principal); R53.83 Other fatigue; E29.1 Testicular hypofunction ==

== ENCOUNTER → 2024-07-05 | Outpatient (REF) | payer OTHER ==
[2024-07-05 17:56] LABS: HEMOGLOBIN 13.7 g/dl (13.5-17.5); MEAN CORPUSCULAR HEMOGLOBIN 31.2 pg (27.0-33.0); MEAN CORPUSCULAR HGB CONC 32.6 g/dl (32.0-36.5); MEAN CORPUSCULAR VOLUME 95.7 fl (80.0-96.0); PLATELET COUNT, AUTOMATED 230 10^3/uL (150-450); RED BLOOD COUNT 4.39 10^6/uL (4.30-6.10); WHITE BLOOD COUNT 7.3 10^3/uL (4.0-10.0)
[2024-07-05 18:07] LABS: ERYTHROCYTE SEDIMENTATION RATE 9 mm/hr (0-20)
[2024-07-05 18:25] LABS: C REACTIVE PROTEIN QUANTITATIV < 0.50 MG/DL (<1.0)
[2024-07-05 18:27] LABS: IRON (FE) 84 UG/DL (65-175); PERCENT SATURATION 21.8 % (19.7-50.0); TOTAL IRON BINDING CAPACITY 385 UG/DL (250-425)
[2024-07-05 18:28] LABS: ALBUMIN 3.6 G/DL (3.2-5.2); ALKALINE PHOSPHATASE 95 U/L (40-129); ALT/SGPT 23 U/L (7.0-40); AST/SGOT 19 U/L (<34); BILIRUBIN,TOTAL 0.5 MG/DL (0.3-1.2); BLOOD UREA NITROGEN 26 MG/DL (9-23); CALCIUM LEVEL 9.3 MG/DL (8.3-10.6); CARBON DIOXIDE LEVEL 29 MMOL/L (20-31); CHLORIDE LEVEL 106 MMOL/L (98-107); CREATININE FOR GFR 1.14 MG/DL (0.70-1.30); GLOMERULAR FILTRATION RATE > 60.0 (>49); GLUCOSE, FASTING 90 MG/DL (74-106); MAGNESIUM LEVEL 1.6 MG/DL (1.8-2.4); POTASSIUM SERUM 4.4 MMOL/L (3.5-5.1); SODIUM LEVEL 142 MMOL/L (136-145); TOTAL PROTEIN 6.9 G/DL (5.7-8.2)
[2024-07-05 18:36] LABS: FERRITIN 45.3 NG/ML (10.5-307.3)
== END ==
LOC: M LABWUC 16:18
PROVIDERS: ATTEND Internal Medicine Gastroenterology
DX: K50.90 Crohn's disease, unspecified, without complications (principal); K82.4 Cholesterolosis of gallbladder; D64.9 Anemia, unspecified; K44.9 Diaphragmatic hernia without obstruction or gangrene

== ENCOUNTER → 2024-09-18 | Outpatient (CLI) | payer OTHER | LOC: M SOG 07:46 | PROVIDERS: ATTEND Orthopaedic Surgery | DX: M25.511 Pain in right shoulder (principal); M19.011 Primary osteoarthritis, right shoulder ==

== ENCOUNTER → 2024-11-14 | Outpatient (CLI) | payer OTHER ==
[2024-11-14 17:16] LABS: HEMATOCRIT 41.2 % (42.0-52.0); HEMOGLOBIN 13.5 g/dl (13.5-17.5); MEAN CORPUSCULAR HGB CONC 32.8 g/dl (32.0-36.5); MEAN CORPUSCULAR VOLUME 94.7 fl (80.0-96.0); PLATELET COUNT, AUTOMATED 219 10^3/uL (150-450); RED BLOOD COUNT 4.35 10^6/uL (4.30-6.10)
[2024-11-14 17:33] LABS: HEMOGLOBIN A1c 4.9 % (4.0-6.0)
[2024-11-14 17:47] LABS: ALBUMIN 3.8 G/DL (3.2-5.2); BILIRUBIN,TOTAL 0.6 MG/DL (0.3-1.2); CALCIUM LEVEL 9.5 MG/DL (8.3-10.6); CHOLESTEROL RISK RATIO 2.69 (<5); CREATININE FOR GFR 1.28 MG/DL (0.70-1.30); GLOMERULAR FILTRATION RATE 62.9 (>49); HDL CHOLESTEROL 54.5 MG/DL (>40); LDL CHOLESTEROL 54.9 MG/DL (<100); NON-HDL-C 92.5 MG/DL; POTASSIUM SERUM 4.5 MMOL/L (3.5-5.1); PROSTATIC SPECIFIC AG MONITOR 0.54 NG/ML (< 4.00); TOTAL PROTEIN 6.7 G/DL (5.7-8.2)
[2024-11-14 17:51] LABS: THYROID STIMULATING HORMONE 1.255 uIU/ML (0.55-4.78)
== END ==
LOC: M PLALAB 15:31
PROVIDERS: ATTEND Family Medicine
DX: I10 Essential (primary) hypertension (principal); R53.83 Other fatigue; E03.9 Hypothyroidism, unspecified

== ENCOUNTER → 2025-06-02 | Outpatient (REF) | payer OTHER ==
[2025-06-02 19:12] LABS: IRON (FE) 101.0 UG/DL (65-175); PERCENT SATURATION 29.1 % (19.7-50.0)
[2025-06-02 19:15] LABS: TESTOSTERONE 338.0 NG/DL (241-827)
== END ==
LOC: M LAB REF 17:47
PROVIDERS: ATTEND Internal Medicine
DX: D50.9 Iron deficiency anemia, unspecified (principal); R53.83 Other fatigue